=== PATIENT | female | born 1985 | race African-American/Black ===

== ENCOUNTER 2016-09-22 13:37 | Emergency (ER) | payer MEDICARE, OTHER ==
[2016-09-22 13:41] VITALS: BP 138/69; PULSE 79; RESP 20; TEMP 98
--- NOTE | 2016-09-22 14:18 | XR ---
EXAMINATION TYPE: XR ankle complete RT DATE OF EXAM: 09/22/2016 2:12 PM COMPARISON: NONE HISTORY: Rolled ankle pain TECHNIQUE: Three-view right ankle FINDINGS: Prior open reduction internal fixation of ankle fracture is present. There is arthrodesis t o the ankle joint space. An acute fracture is not identified. IMPRESSION: 1. Arthrodesis right ankle. 2. Acute osseous abnormality is identified. Postsurgical changes are evident.
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
--- NOTE | 2016-09-22 14:20 | XR ---
EXAMINATION TYPE: XR foot complete RT DATE OF EXAM: 09/22/2016 2:12 PM COMPARISON: NONE HISTORY: Pain injury walking yesterday TECHNIQUE: Three-view right foot FINDINGS: No acute fractures are evident. Joint spaces appear preserved within the foot. There is art hrodesis of the right ankle. Plantar calcaneal heel spur is present. Follow-up exam can be performed 7-10 days from acute trauma for continued pain. IMPRESSION: 1. Postsurgical changes right ankle. 2. No acute osseous abnormality right foot
== END 2016-09-22 15:08 | disposition home or self-care (01) ==
LOC: EC 13:37
DX: S82.201A Unspecified fracture of shaft of right tibia, initial encounter for closed fracture (principal); F17.200 Nicotine dependence, unspecified, uncomplicated; X50.9XXA Other and unspecified overexertion or strenuous movements or postures, initial encounter; Y93.01 Activity, walking, marching and hiking
CPT/HCPCS: 29515; 99284

== ENCOUNTER 2016-11-20 15:03 | Emergency (ER) | payer MEDICARE, OTHER ==
[2016-11-20 15:18] VITALS: RESP 18; TEMP 98.1
[2016-11-20] MEDS ORDERED: ORPHENADRINE 30 MG/ML 2 ML VIAL IM STA (15:28)
[2016-11-20] MEDS ORDERED: KETOROLAC 60 MG/2 ML VIAL IM STA (15:28)
[2016-11-20 15:49] VITALS: BP 126/79; PULSE 60
[2016-11-20 15:49] LABS: Appearance,Urine Turbid (Clear); Bacteria,Urine Many /hpf; Bilirubin,Urine Negative (Negative); Glucose,Urine (UA) Negative (Negative); Ketones,Urine Negative (Negative); Leukocyte Esterase,Urine Moderate (Negative); Mucus,Urine Rare /hpf; Nitrite,Urine Negative (Negative); PH, Urine 5.5 (5.0-8.0); Particle Count 42637; Protein,Urine Negative (Negative); RBC,Urine 14 /hpf (0-5); Specific Gravity,Urine 1.006 (1.001-1.035); Squamous Epithelial Cell,Urine 30 /hpf (0-4); UA Billing (MACRO vs. MICRO) MICRO; Urobilinogen,Urine <2.0 mg/dL (<2.0); WBC,Urine 11 /hpf (0-5)
--- NOTE | 2016-11-20 15:49 | ED ---
Back Pain HPI - General Chief Complaint: Back Pain/Injury Stated Complaint: Back Pain Time Seen by Provider: 11/20/16 15:17 Source: patient, RN notes reviewed, old records reviewed Limitations: no limitations - History of Present Illness Initial Comments: This is a 31-year-old female presenting to the emergency Department chief complaint of left leg nerve pain reading from her upper and lower back into her leg. She reports it's worse with sitting and bending over. She states she feels somewhat relieved with standing up he denies any recent falls or trauma. She denies any saddle anesthesias. Patient reports that the pain is severe with this certain movements. Patient denies any nausea or vomiting. She denies any dysuria or any other symptoms. - Related Data Home Medications Medication Instructions Recorded Confirmed Ibuprofen [Motrin] 800 mg PO TID PRN 11/20/16 11/20/16 Pregabalin [Lyrica] 200 mg PO HS 11/20/16 11/20/16 QUEtiapine [SEROquel] 50 mg PO HS 11/20/16 11/20/16 Previous Rx's Medication Instructions Recorded Cyclobenzaprine [Flexeril] 10 mg PO TID #20 tab 11/20/16 HYDROcodone/APAP 5-325MG [[employer] 1 tab PO Q6HR PRN #15 tab 11/20/16 5-325] Allergies Allergy/AdvReac Type Severity Reaction Status Date / Time ketorolac [From Toradol] AdvReac Nightmares Verified 11/20/16 16:03 Review of Systems ROS Statement: Those systems with pertinent positive or pertinent negative responses have been documented in the HPI. ROS Other: All systems not noted in ROS Statement are negative. Past Medical History Past Medical History: No Reported History History of Any Multi-Drug Resistant Organisms: MRSA Date of last positivie culture/infection: 2010 MDRO Source:: unk Past Surgical History: Section, Cholecystectomy Additional Past Surgical History / Comment(s): ankle surgery, nasal surgery, right leg surgeryx 3 Past Psychological History: No Psychological Hx Reported Smoking Status: Current every day smoker Past Alcohol Use History: None Reported Past Drug Use History: Marijuana General Exam - General Exam Comments Initial Comments: This is a 31-year-old female. Patient does not appear in any acute distress. Limitations: no limitations General appearance: alert, in no apparent distress Head exam: Present: atraumatic, normocephalic, normal inspection Eye exam: Present: normal appearance, PERRL, EOMI. Absent: scleral icterus, conjunctival injection, periorbital swelling ENT exam: Present: normal exam, mucous membranes moist Neck exam: Present: normal inspection. Absent: tenderness, meningismus, lymphadenopathy Respiratory exam: Present: normal lung sounds bilaterally. Absent: respiratory distress, wheezes, rales, rhonchi, stridor Cardiovascular Exam: Present: regular rate, normal rhythm, normal heart sounds. Absent: systolic murmur, diastolic murmur, rubs, gallop, clicks GI/Abdominal exam: Present: soft, normal bowel sounds. Absent: distended, tenderness, guarding, rebound, rigid Extremities exam: Present: normal inspection, full ROM, normal capillary refill. Absent: tenderness, pedal edema, joint swelling, calf tenderness Back exam: Present: normal inspection, full ROM, tenderness (Patient has pain over the left lumbar area. ) Neurological exam: Present: alert, oriented X3, CN II-XII intact, normal gait Psychiatric exam: Present: normal affect, normal mood Skin exam: Present: warm, dry, intact, normal color. Absent: rash Course Vital Signs 11/20/16 11/20/16 15:13 15:48 Temperature 98.1 F Pulse Rate 70 60 Respiratory 18 18 Rate Blood Pressure 132/80 126/79 O2 Sat by Pulse 98 96 Oximetry Medical Decision Making - Medical Decision Making This is a 31-year-old female presenting to the emergency Department chief complaint of left leg nerve pain reading from her upper and lower back into her leg. She reports it's worse with sitting and bending over. She states she feels somewhat relieved with standing up he denies any recent falls or trauma. Patient x-ray was reviewed and did show some significant lumbar spinal spasm. Patient does have no fractures noted. Patient has no evidence of spinal listhesis or spondylolysis. Patient was given IM Toradol and Norflex. Patient also will be discharged at this time with muscle relaxers instructed that he ice over her lumbar spine. Patient understands treatment plan will comply. Return parameters were discussed. - Lab Data Lab Results 11/20/16 11/20/16 Range/Units 15:36 15:36 Urine Color Light Yellow Urine Appearance Turbid H (Clear) Urine pH 5.5 (5.0-8.0) Ur Specific Rives 1.006 (1.001-1.035) Urine Protein Negative (Negative) Urine Glucose (UA) Negative (Negative) Urine Ketones Negative (Negative) Urine Blood Negative (Negative) Urine Nitrite Negative (Negative) Urine Bilirubin Negative (Negative) Urine Urobilinogen <2.0 (<2.0) mg/dL Ur Leukocyte Esterase Moderate H (Negative) Urine RBC 14 H (0-5) /hpf Urine WBC 11 H (0-5) /hpf Ur Squamous Epith Cells 30 H (0-4) /hpf Urine Bacteria Many H (None) /hpf Urine Mucus Rare H (None) /hpf Urine Yeast (Budding) Few H (None) /hpf Urine HCG, Qual Not Detected (Not Detectd) Disposition Clinical Impression: Lumbar paraspinal muscle spasm, Injury of sciatic nerve at hip and thigh level , left leg, initial encounter Disposition: HOME SELF-CARE Condition: Good Instructions: Sciatica (ED), Lumbar Radiculopathy (ED) Additional Instructions: Patient advised to put heat and ice over the lower back. Take the medications as prescribed. Return to the emergency department if any alarming signs or symptoms occur. Prescriptions: Cyclobenzaprine [Flexeril] 10 mg PO TID #20 tab HYDROcodone/APAP 5-325MG [[employer] 5-325] 1 tab PO Q6HR PRN #15 tab PRN Reason: Pain Referrals: Rachelle Wray MD [Primary Care Provider] - 1-2 days Time of Disposition: 16:18
--- NOTE | 2016-11-20 16:28 | XR ---
EXAMINATION TYPE: XR lumbar spine 2 or 3V , 3 VIEWS DATE OF EXAM ORDERED: 11/20/2016 HISTORY: Pain. COMPARISON: None. FINDINGS: There has been a previous cholecystectomy. Vertebral body height and alignment are maintained. There is no spondylolysis or spondylolisthesis. T he disc spaces are maintained. The pedicles are intact. IMPRESSION: NORMAL LUMBAR SPINE.
== END 2016-11-20 16:28 | disposition home or self-care (01) ==
LOC: EC 15:03
DX: S74.02XA Injury of sciatic nerve at hip and thigh level, left leg, initial encounter (principal); M62.830 Muscle spasm of back; F17.200 Nicotine dependence, unspecified, uncomplicated; Z86.14 Personal history of Methicillin resistant Staphylococcus aureus infection; Z79.899 Other long term (current) drug therapy; Z88.6 Allergy status to analgesic agent; X50.9XXA Other and unspecified overexertion or strenuous movements or postures, initial encounter
CPT/HCPCS: 81001; 81025; 72100; 99284; 96372 ×2; J2360; J1885

== ENCOUNTER → 2018-05-12 | Outpatient (CLI) | payer OTHER ==
[2018-05-12 10:18] LABS: HCT 43.5 % (34.0-46.0); HGB 14.4 gm/dL (11.4-16.0); MCHC 33.1 g/dL (31.0-37.0); MCV 96.7 fL (80.0-100.0); Mean Platelet Volume 7.9; Platelet Count 311 k/uL (150-450); RBC 4.49 m/uL (3.80-5.40); RDW 13.6 % (11.5-15.5); WBC 9.9 k/uL (3.8-10.6)
--- NOTE | 2018-05-12 10:21 | CT ---
EXAMINATION TYPE: CT ankle RT wo con DATE OF EXAM: 05/12/2018 COMPARISON: Radiograph 09/22/2016 HISTORY: 33-year-old female Pain TECHNIQUE: Contiguous axial scanning of the right ankle without IV contrast. Coronal and sagittal rec onstructions performed. CT DLP: 311 mGycm Automated exposure control for dose reduction was used. FINDINGS: Redemonstrated is surgical arthrodesis across the tibiotalar joint with antegrade intramedullary nail . 3 distal interlocking screws are present. Large areas of bony bridging are present across the tibio talar joint with some persistent areas of nonbridging such as far anteriorly along the tibiotalar mayra nt and along the medial margin. The orthopedic hardware itself remains intact. Additional sideplate and multiple screw fixation distal fibula. There is a fusion screw at the level of the lateral malleolus extending into the underlying talus with large areas of bony ankylosis at th e anterior tibiofibular joint and across the anterior aspect of the distal fibula and lateral talar d ome. Small corticated density along the inferior aspect of the lateral talar process could represent a par tially fused prior fracture fragment. Subtalar joint remains aligned. There is some marginal spurring along the posterior, middle, and ante rior facets of the subtalar joint. Small delineation to the Achilles tendon. No acute fracture, subluxation, or dislocation seen. Either confluent edema measuring 3.1 cm overlying the medial malleolus versus extensive scar tissue. IMPRESSION: 1. STATUS POST SURGICAL ARTHRODESIS OF THE TIBIOTALAR AND TALOFIBULAR JOINTS. LARGE AREAS OF BONY ANK YLOSIS ARE PRESENT, HAVING PROGRESSED FROM THE PATIENT'S 09/22/2016 RADIOGRAPHS. ONLY SMALL AREAS OF CHRONIC NONUNION REMAIN, SUCH ALONG THE ANTERIORMOST ASPECT OF THE TIBIOTALAR JOINT AND POSTERIOR ASPECT OF THE TALOFIBULAR JOINT. 2. NO PERISCREW LUCENCY TO SUGGEST LOOSENING. NO SCREW OR PERIPROSTHETIC FRACTURE SEEN. 3. MILD DEGENERATIVE SPURRING ALONG THE SUBTALAR JOINT.
[2018-05-12 11:47] LABS: Erythrocyte Sedimentation Rate 11 mm/hr (0-20)
== END | disposition home or self-care (01) ==
LOC: RADCTMAIN 09:11
PROVIDERS: ATTEND Orthopaedic Surgery
DX: M24.671 Ankylosis, right ankle (principal); M77.51 Other enthesopathy of right foot and ankle; T84.84XA Pain due to internal orthopedic prosthetic devices, implants and grafts, initial encounter; M25.571 Pain in right ankle and joints of right foot; Z98.1 Arthrodesis status
CPT/HCPCS: 85027; 85652

== ENCOUNTER 2018-06-04 17:50 | Emergency (ER) | payer MEDICARE, OTHER ==
[2018-06-04 18:18] VITALS: BP 131/82; PULSE 66; RESP 20; TEMP 98.6
[2018-06-04] MEDS ORDERED: HYDROcodone/APAP 5-325MG 1 EACH TAB PO STA (19:08)
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
[2018-06-04 19:56] LABS: Appearance,Urine Clear (Clear); Bacteria,Urine Rare /hpf; Bilirubin,Urine Negative (Negative); Blood,Urine Small (Negative); Color,Urine Yellow; Glucose,Urine (UA) Negative (Negative); Ketones,Urine Negative (Negative); Leukocyte Esterase,Urine Negative (Negative); Mucus,Urine Few /hpf; Nitrite,Urine Negative (Negative); PH, Urine 5.5 (5.0-8.0); Protein,Urine Trace (Negative); RBC,Urine 2 /hpf (0-5); Specific Gravity,Urine 1.025 (1.001-1.035); Squamous Epithelial Cell,Urine 8 /hpf (0-4); Urobilinogen,Urine <2.0 mg/dL (<2.0); WBC,Urine 1 /hpf (0-5)
--- NOTE | 2018-06-04 20:18 | XR ---
EXAMINATION TYPE: XR Hip RT and AP Pelvis DATE OF EXAM: 06/04/2018 COMPARISON: NONE HISTORY: Right hip pain and pelvic pain. No fall or injury. TECHNIQUE: A single AP view of the pelvis is obtained. Two views of the right hip are obtained. FINDINGS: There is no acute fracture/dislocation evident in the pelvis. The hip and sacroiliac join ts appear symmetric and unremarkable. The overlying soft tissue appears unremarkable. Two views of right hip show no acute fracture or dislocation. There is over coverage of the femoral h ead by osseous protuberance. This predisposes the patient to pincer-type femoral acetabular impingeme nt syndrome. This is seen bilaterally, right or left. Transitional-type vertebrae is seen at L5-S1 on the left. Sclerotic focus overlies the femoral neck on a single view only and therefore is not thoug ht to represent an osseous lesion. No focal lytic or sclerotic lesion seen in the proximal right femu r. The overlying soft tissue is unremarkable. IMPRESSION: 1. No acute fracture or dislocation in the pelvis or right hip. 2. Bilateral lower coverage of the femoral heads by protruding acetabuli creating pincer deformities and predisposing this patient to pincer-type femoral acetabular impingement syndrome, right greater t soni left. 3. 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
--- NOTE | 2018-06-04 20:19 | XR ---
EXAMINATION TYPE: XR lumbar spine 2 or 3V DATE OF EXAM: 06/04/2018 CLINICAL HISTORY: Back pain TECHNIQUE: Frontal and lateral images of the lumbar spine are obtained. COMPARISON: 11/12/2016 FINDINGS: There is transitional-type vertebrae at L5 on the left with hemisacralization. . Mild levos coliosis is likely positional in nature and not seen on the prior of 2016. There are 5 lumbar type ve rtebral bodies identified. The lumbar spine shows satisfactory alignment without evidence of acute f racture or dislocation. Vertebral body heights and disk space heights are within normal limits. Chol ecystectomy clips are noted. IMPRESSION: No acute fracture or malalignment is seen in the lumbar spine.
== END 2018-06-04 21:24 | disposition home or self-care (01) ==
LOC: EC 17:50
DX: M25.851 Other specified joint disorders, right hip (principal); M54.30 Sciatica, unspecified side; F17.200 Nicotine dependence, unspecified, uncomplicated; Z86.14 Personal history of Methicillin resistant Staphylococcus aureus infection; Z88.6 Allergy status to analgesic agent; Z90.49 Acquired absence of other specified parts of digestive tract
CPT/HCPCS: 72100; 73502; 81001; 81025; 87086; 99284

== ENCOUNTER → 2021-04-17 | Outpatient (CLI) | payer MEDICARE ==
--- NOTE | 2021-04-17 12:37 | US ---
EXAMINATION TYPE: US venous doppler duplex LE BI DATE OF EXAM: 04/17/2021 9:30 AM COMPARISON: NONE CLINICAL HISTORY: 36-year-old female M79.662,M97.661 PAIN IN LT AND RT LEGS. SIDE PERFORMED: Bilateral TECHNIQUE: The lower extremity deep venous system is examined utilizing real time linear array sonog daly with graded compression, doppler sonography and color-flow sonography. FINDINGS: VESSELS IMAGED: Common Femoral Vein Deep Femoral Vein Greater Saphenous Vein * Femoral Vein Popliteal Vein Small Saphenous Vein * Proximal Calf Veins (* superficial vessels) Electricity Trading Analyst notes: Patient of large body habitus. Right Leg: Negative for DVT Left Leg: Negative for DVT IMPRESSION: No evidence for DVT within the bilateral lower extremities imaged from the groin to the upper calves.
--- NOTE | 2021-04-17 12:41 | US ---
EXAMINATION TYPE: US thyroid st tissue head/neck DATE OF EXAM: 04/17/2021 COMPARISON: NONE CLINICAL HISTORY: 36-year-old female R22.0 SWELLING/MASS. TECHNIQUE: Multiple sonographic images of the thyroid gland are obtained. FINDINGS: GLAND SIZE: Right Lobe: 4.8 x 1.6 x 1.7 cm Overall Parenchyma: homogenous Left Lobe: 5.4 x 1.2 x 1.5 cm Overall Parenchyma: homogeneous Isthmus Thickness: 0.3 cm NODULES RIGHT: # of nodules measured on right: 0 LEFT: # of nodules measured on left: 0 Bilateral neck scanned, no evidence of lymphadenopathy. IMPRESSION: Borderline thyromegaly. Normal homogeneous appearance. No discrete nodule seen.
== END | disposition home or self-care (01) ==
LOC: RADUSWWP 08:48
PROVIDERS: ATTEND Internal Medicine
DX: M79.662 Pain in left lower leg (principal); M79.661 Pain in right lower leg; E01.0 Iodine-deficiency related diffuse (endemic) goiter
CPT/HCPCS: 76536; 93970

== ENCOUNTER → 2021-07-09 | Outpatient (CLI) | payer MEDICARE, OTHER ==
--- NOTE | 2021-07-09 09:37 | CT ---
EXAMINATION TYPE: CT abdomen pelvis wo con DATE OF EXAM: 07/09/2021 COMPARISON: None HISTORY: Epigastric pain CT DLP: 958 mGycm Automated exposure control for dose reduction was used. TECHNIQUE: Helical acquisition of images was performed from the lung bases through the pelvis. FINDINGS: LUNG BASES: No significant abnormality is appreciated. LIVER/GB: Postcholecystectomy changes are seen. PANCREAS: No significant abnormality is seen. SPLEEN: No significant abnormality is seen. ADRENALS: No significant abnormality is seen. KIDNEYS: No significant abnormality is seen. ADENOPATHY: None visualized. OSSEOUS STRUCTURES: Severe degenerative disc disease L5-S1 with central disc protrusion. BOWEL: Appendix measures at the upper limits of normal at 6 mm. No inflammatory changes. Correlate c linically. Small hiatal hernia noted. OTHER: The uterus is somewhat prominent in size with soft tissue attenuations adjacent likely related to normal ovaries. Correlate with pelvic ultrasound as clinically warranted. IMPRESSION: 1. The appendix is at the upper limits of normal in size measuring 6 mm but appears to be air-filled and there is no surrounding inflammatory changes and could be transient. Correlate clinically to excl ude a elevated white blood cell count or right lower quadrant pain. 2. No evidence of renal stone. 3. Postcholecystectomy 4. Small hiatal hernia.
== END | disposition home or self-care (01) ==
LOC: RADCTMAIN 09:04
PROVIDERS: ATTEND Internal Medicine
DX: K44.9 Diaphragmatic hernia without obstruction or gangrene (principal); Z90.49 Acquired absence of other specified parts of digestive tract
CPT/HCPCS: 74176

== ENCOUNTER 2021-10-07 19:11 | Emergency (ER) | payer MEDICARE, OTHER ==
[2021-10-07] MEDS ORDERED: ONDANSETRON 4 MG/2 ML VIAL IVP STA (21:51)
[2021-10-07] MEDS ORDERED: KETOROLAC 15 MG/ML 1 ML VIAL IVP STA (21:51)
[2021-10-07] MEDS ORDERED: SODIUM CHLORIDE 0.9% 1,000 ML IV STA (21:51)
--- NOTE | 2021-10-07 21:57 | ED ---
General Adult HPI - General Chief complaint: Abdominal Pain Stated complaint: abd pain Time Seen by Provider: 10/07/21 21:37 Source: patient, RN notes reviewed Mode of arrival: ambulatory Limitations: no limitations - History of Present Illness Initial comments: 36-year-old female presents to the emergency department for evaluation of epigastric and right-sided abdominal pain that radiates to the right flank, onset yesterday. Patient states her pain is worse with movement and repositioning. Also had an episode of diaphoresis and vomiting prior to arrival. She states she has nausea medicine at home but did not take any. Reports history of cholecystectomy. States "food does not agree with me." Denies fever, chills, headache, dizziness, chest pain, shortness of breath, constipation, diarrhea, dysuria, or hematuria. - Related Data Home Medications Medication Instructions Recorded Confirmed Ibuprofen [Motrin Ib] 400 mg PO Q8H PRN 10/07/21 10/07/21 Omeprazole [PriLOSEC] 40 mg PO DAILY 10/07/21 10/07/21 buPROPion XL [Wellbutrin XL] 300 mg PO DAILY 10/07/21 10/07/21 Allergies Allergy/AdvReac Type Severity Reaction Status Date / Time tramadol Allergy Abdominal Verified 10/07/21 22:57 Pain Review of Systems ROS Statement: Those systems with pertinent positive or pertinent negative responses have been documented in the HPI. ROS Other: All systems not noted in ROS Statement are negative. Past Medical History Past Medical History: No Reported History History of Any Multi-Drug Resistant Organisms: MRSA Date of last positivie culture/infection: 2010 MDRO Source:: unk Past Surgical History: Section, Cholecystectomy Additional Past Surgical History / Comment(s): ankle surgery, nasal surgery, right leg surgeryx 3 Past Psychological History: No Psychological Hx Reported Smoking Status: Never smoker Past Alcohol Use History: None Reported Past Drug Use History: Marijuana General Exam Limitations: no limitations General appearance: alert, in distress (Well-developed, well-nourished female in mild distress due to pain. Initial temperature 98.3, pulse 110, respirations 20, blood pressure 130/98, pulse ox 99% on room air.) Eye exam: Present: normal appearance. Absent: scleral icterus, conjunctival injection ENT exam: Present: normal exam, normal oropharynx, mucous membranes moist Neck exam: Present: normal inspection, full ROM. Absent: lymphadenopathy Respiratory exam: Present: normal lung sounds bilaterally. Absent: respiratory distress, wheezes, rales, rhonchi, stridor, chest wall tenderness Cardiovascular Exam: Present: normal rhythm, tachycardia, normal heart sounds. Absent: systolic murmur, diastolic murmur, rubs, gallop, clicks GI/Abdominal exam: Present: soft, tenderness (Tenderness upon palpation of the mid abdomen, epigastrium, and right mid abdomen.), guarding (Guarding mid abdomen), normal bowel sounds. Absent: distended, rebound, rigid Back exam: Absent: CVA tenderness (R), CVA tenderness (L) Neurological exam: Present: alert, oriented X3, normal gait Psychiatric exam: Present: flat affect Skin exam: Present: warm, dry, intact, normal color. Absent: rash Course Vital Signs 10/07/21 10/08/21 19:25 00:44 Temperature 98.3 F 99.8 F H Pulse Rate 110 H 72 Respiratory 20 16 Rate Blood Pressure 138/98 152/98 O2 Sat by Pulse 99 99 Oximetry - Reevaluation(s) Reevaluation #1: 10/08/21 00:25 Upon reassessment, patient is resting more comfortably at this time. States her nausea is resolved and her pain is minimal. Discussed findings from blood work, urine, and imaging. We talked about CT, however given the patient does not have an elevated white blood cell count and is not tender upon palpation of the right lower quadrant, patient was given the option and chose to decline further testing at this time. She will be discharged home with strict return parameters. Medical Decision Making - Medical Decision Making This is a 36-year-old female with a past medical history of cholecystectomy who presents to the emergency department for evaluation of abdominal pain and nausea. Upon exam, patient is guarding the abdomen, but has minimal tenderness upon palpation. She is not experiencing any vomiting, but does complain of nausea. Patient was given IV fluids, pain medication, and antiemetic with significant improvement. Laboratory studies were obtained and were unremarkable. EKG shows normal sinus rhythm. X-ray is negative for any acute process. Findings were discussed with patient. We did discuss option of CT but patient elected to decline at at this time. She will be discharged home to follow-up with her PCP. Patient is prescribed Zofran for nausea. Strict return parameters were discussed in detail. Patient verbalizes understanding and agrees with this plan. Attending: Pepe. - Lab Data Result diagrams: 10/07/21 23:14 10/07/21 23:14 Lab Results 10/07/21 10/07/21 10/07/21 Range/Units 23:10 23:14 23:14 WBC 9.6 (3.8-10.6) k/uL RBC 4.41 (3.80-5.40) m/uL Hgb 13.2 (11.4-16.0) gm/dL Hct 41.7 (34.0-46.0) % MCV 94.7 (80.0-100.0) fL MCH 29.9 (25.0-35.0) pg MCHC 31.6 (31.0-37.0) g/dL RDW 12.9 (11.5-15.5) % Plt Count 332 (150-450) k/uL MPV 7.3 Neutrophils % 72 % Lymphocytes % 21 % Monocytes % 4 % Eosinophils % 1 % Basophils % 1 % Neutrophils # 6.9 (1.3-7.7) k/uL Lymphocytes # 2.0 (1.0-4.8) k/uL Monocytes # 0.4 (0-1.0) k/uL Eosinophils # 0.1 (0-0.7) k/uL Basophils # 0.1 (0-0.2) k/uL Sodium 137 (137-145) mmol/L Potassium 4.6 (3.5-5.1) mmol/L Chloride 107 (98-107) mmol/L Carbon Dioxide 23 (22-30) mmol/L Anion Gap 7 mmol/L BUN 16 (7-17) mg/dL Creatinine 1.11 H (0.52-1.04) mg/dL Est GFR (CKD-EPI)AfAm 74 (>60 ml/min/1.73 sqM) Est GFR (CKD-EPI)NonAf 64 (>60 ml/min/1.73 sqM) Glucose 95 (74-99) mg/dL Plasma Lactic Acid Amarjit (0.7-2.0) mmol/L Calcium 9.0 (8.4-10.2) mg/dL Total Bilirubin 0.5 (0.2-1.3) mg/dL AST 24 (14-36) U/L ALT 16 (4-34) U/L Alkaline Phosphatase 76 (38-126) U/L Total Protein 7.9 (6.3-8.2) g/dL Albumin 4.6 (3.5-5.0) g/dL Lipase 30 (23-300) U/L Urine Color Yellow Urine Appearance Cloudy H (Clear) Urine pH 6.0 (5.0-8.0) Ur Specific Jennings 1.024 (1.001-1.035) Urine Protein Trace H (Negative) Urine Glucose (UA) Negative (Negative) Urine Ketones Negative (Negative) Urine Blood Negative (Negative) Urine Nitrite Negative (Negative) Urine Bilirubin Negative (Negative) Urine Urobilinogen <2.0 (<2.0) mg/dL Ur Leukocyte Esterase Moderate H (Negative) Urine RBC 2 (0-5) /hpf Urine WBC 9 H (0-5) /hpf Ur Squamous Epith Cells 14 H (0-4) /hpf Urine Bacteria Rare H (None) /hpf Urine Mucus Few H (None) /hpf 10/07/21 Range/Units 23:14 WBC (3.8-10.6) k/uL RBC (3.80-5.40) m/uL Hgb (11.4-16.0) gm/dL Hct (34.0-46.0) % MCV (80.0-100.0) fL MCH (25.0-35.0) pg MCHC (31.0-37.0) g/dL RDW (11.5-15.5) % Plt Count (150-450) k/uL MPV Neutrophils % % Lymphocytes % % Monocytes % % Eosinophils % % Basophils % % Neutrophils # (1.3-7.7) k/uL Lymphocytes # (1.0-4.8) k/uL Monocytes # (0-1.0) k/uL Eosinophils # (0-0.7) k/uL Basophils # (0-0.2) k/uL Sodium (137-145) mmol/L Potassium (3.5-5.1) mmol/L Chloride (98-107) mmol/L Carbon Dioxide (22-30) mmol/L Anion Gap mmol/L BUN (7-17) mg/dL Creatinine (0.52-1.04) mg/dL Est GFR (CKD-EPI)AfAm (>60 ml/min/1.73 sqM) Est GFR (CKD-EPI)NonAf (>60 ml/min/1.73 sqM) Glucose (74-99) mg/dL Plasma Lactic Acid Amarjit 0.8 (0.7-2.0) mmol/L Calcium (8.4-10.2) mg/dL Total Bilirubin (0.2-1.3) mg/dL AST (14-36) U/L ALT (4-34) U/L Alkaline Phosphatase (38-126) U/L Total Protein (6.3-8.2) g/dL Albumin (3.5-5.0) g/dL Lipase (23-300) U/L Urine Color Urine Appearance (Clear) Urine pH (5.0-8.0) Ur Specific Jennings (1.001-1.035) Urine Protein (Negative) Urine Glucose (UA) (Negative) Urine Ketones (Negative) Urine Blood (Negative) Urine Nitrite (Negative) Urine Bilirubin (Negative) Urine Urobilinogen (<2.0) mg/dL Ur Leukocyte Esterase (Negative) Urine RBC (0-5) /hpf Urine WBC (0-5) /hpf Ur Squamous Epith Cells (0-4) /hpf Urine Bacteria (None) /hpf Urine Mucus (None) /hpf - EKG Data EKG shows normal: sinus rhythm Rate: normal EKG Comments: EKG was obtained at 2303 showing sinus rhythm. Ventricular rate 70, AL interval 202, QRS duration 90, QT/QTC 392/412. Interpretation normal ECG. - Radiology Data Radiology results: report reviewed, image reviewed KUB x-ray was obtained. Report was reviewed in its entirety. Impression per Dr. Hernandez is nonacute abdomen. Disposition Clinical Impression: Abdominal pain, Nausea Disposition: HOME SELF-CARE Condition: Stable Instructions (If sedation given, give patient instructions): Acute Nausea and Vomiting (ED), Abdominal Pain (ED) Additional Instructions: Take Zofran that you have at home as needed for nausea. Eat foods that you were able to tolerate with no worsening discomfort or nausea. Increase fluids. Avoid caffeine. Follow-up with your PCP for a recheck in 48 hours if needed. Return to the emergency department with any new, worsening, or concerning symptoms. Is patient prescribed a controlled substance at d/c from ED?: No Referrals: Rachelle Wray MD [Primary Care Provider] - 1-2 days Time of Disposition: 00:45
[2021-10-07 23:23] LABS: Basophils # (A) 0.1 k/uL (0-0.2); Basophils % (A) 1 %; Eosinophils # (A) 0.1 k/uL (0-0.7); Eosinophils % (A) 1 %; HCT 41.7 % (34.0-46.0); HGB 13.2 gm/dL (11.4-16.0); Lymphocytes % (A) 21 %; MCH 29.9 pg (25.0-35.0); MCHC 31.6 g/dL (31.0-37.0); MCV 94.7 fL (80.0-100.0); Mean Platelet Volume 7.3; Monocytes # (A) 0.4 k/uL (0-1.0); Monocytes % (A) 4 %; Neutrophils # (A) 6.9 k/uL (1.3-7.7); Neutrophils % (A) 72 %; Platelet Count 332 k/uL (150-450); RBC 4.41 m/uL (3.80-5.40); RDW 12.9 % (11.5-15.5); WBC 9.6 k/uL (3.8-10.6)
[2021-10-07 23:29] LABS: Appearance,Urine Cloudy (Clear); Bacteria,Urine Rare /hpf; Bilirubin,Urine Negative (Negative); Blood,Urine Negative (Negative); Color,Urine Yellow; Glucose,Urine (UA) Negative (Negative); Ketones,Urine Negative (Negative); Leukocyte Esterase,Urine Moderate (Negative); Mucus,Urine Few /hpf; Nitrite,Urine Negative (Negative); Protein,Urine Trace (Negative); RBC,Urine 2 /hpf (0-5); Specific Gravity,Urine 1.024 (1.001-1.035); Squamous Epithelial Cell,Urine 14 /hpf (0-4); Urobilinogen,Urine <2.0 mg/dL (<2.0); WBC,Urine 9 /hpf (0-5)
[2021-10-07 23:34] LABS: Albumin 4.6 g/dL (3.5-5.0); Potassium 4.6 mmol/L (3.5-5.1); Total Bilirubin 0.5 mg/dL (0.2-1.3); Total Protein 7.9 g/dL (6.3-8.2)
--- NOTE | 2021-10-08 00:03 | XR ---
EXAMINATION TYPE: XR KUB DATE OF EXAM: 10/07/2021 COMPARISON: NONE HISTORY: Pain TECHNIQUE: 2 views upright FINDINGS: There is no sign of intestinal obstruction or pneumoperitoneum. Fecal pattern is normal. No evidence of a mass. There are no pathologic calcifications over the kidneys. There are clips from ch olecystectomy. Lung bases are clear. IMPRESSION: Nonacute abdomen.
[2021-10-08 00:44] VITALS: BP 152/98; PULSE 72; RESP 16; TEMP 99.8
== END 2021-10-08 01:10 | disposition home or self-care (01) ==
LOC: EC 19:11
DX: R10.13 Epigastric pain (principal); R11.2 Nausea with vomiting, unspecified; Z88.5 Allergy status to narcotic agent
CPT/HCPCS: 99284; 96374; 96361; 36415; 93005; 80053; 83605; 83690; 85025; 81001; 74018; J2405

== ENCOUNTER → 2022-03-03 | Outpatient (CLI) | payer MEDICARE ==
--- NOTE | 2022-03-03 16:08 | MR ---
EXAMINATION TYPE: MR lumbar spine wo con DATE OF EXAM: 03/03/2022 COMPARISON: CT abdomen and pelvis 07/09/2021, lumbar spine radiograph 06/04/2018. HISTORY: Sciatic nerve pain, lumbago TECHNIQUE: Multiplanar, multisequence images of the lumbar spine were acquired without IV contrast. FINDINGS: Mild retrolisthesis of L5 on S1 without evidence of pars defects. No paraspinal masses are identified . Conus medullaris has a normal appearance. Disc desiccation is present at L4-L5 and L5-S1. Type II Modic changes involving the inferior endplate of L5 and superior plate of S1. Diffuse low T1 signal t hroughout the visualized vertebral bodies. L1-L2: No herniation, protrusion or disc bulging. No canal stenosis is present. Foramina are patent bilaterally. L2-L3: No herniation, protrusion or disc bulging. No canal stenosis is present. Foramina are patent bilaterally. L3-L4: No herniation, protrusion or disc bulging. No canal stenosis is present. Foramina are patent bilaterally. L4-L5: Left central disc protrusion with approximately 1.3 cm of caudal extrusion. There is mild effa cement of the anterior thecal sac with abutment of the exiting left L4 nerve root. Mild bilateral vita ral foraminal stenosis. L5-S1: Mild retrolisthesis of L5 on S1. Broad-based disc bulge with facet arthropathy. No central can al stenosis. Mild bilateral neural foraminal stenosis. IMPRESSION: 1. L4-L5 disc herniation with caudal extrusion. This results in abutment of the exiting left L4 nerv e root and mild central canal stenosis. 2. L5-S1 degenerative disc disease with mild retrolisthesis of L5 on S1. 3. Diffuse red marrow conversion can be seen in the setting of tobacco abuse, anemia, or myeloprolif erative disorder.
== END | disposition home or self-care (01) ==
LOC: RADMRIMAIN 14:37
PROVIDERS: ATTEND Internal Medicine
DX: M51.37 Other intervertebral disc degeneration, lumbosacral region (principal); M51.26 Other intervertebral disc displacement, lumbar region; M48.061 Spinal stenosis, lumbar region without neurogenic claudication; M43.17 Spondylolisthesis, lumbosacral region; M47.817 Spondylosis without myelopathy or radiculopathy, lumbosacral region; M99.74 Connective tissue and disc stenosis of intervertebral foramina of sacral region
CPT/HCPCS: 72148

== ENCOUNTER → 2022-04-29 | Outpatient (CLI) | payer MEDICARE ==
[2022-04-29 14:31] VITALS: BP 126/86; PULSE 71; RESP 18; TEMP 98.4
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
== END ==
LOC: PNWHC3 13:50
PROVIDERS: ATTEND Specialist
DX: M47.816 Spondylosis without myelopathy or radiculopathy, lumbar region (principal); F17.200 Nicotine dependence, unspecified, uncomplicated; Z88.5 Allergy status to narcotic agent
CPT/HCPCS: 99211

== ENCOUNTER → 2022-07-09 | Outpatient (CLI) | payer MEDICARE ==
[2022-07-09 12:18] VITALS: BP 143/88; PULSE 65; RESP 18; TEMP 98.7
--- NOTE | 2022-07-09 15:51 | P.PAINPG ---
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 Pain level is provoked at 10 /10 in intensity, constant, localized in the L lower lumbar spine, pinching in character w shooting towards the L buttock and LLE. Pain is provoked by sitting. Pain is alleviated with heat, medications, use of a cane for ambulatory assistance, THC products, injections, home stretching regimen, repositioning and rest. Interventional pain procedures completed include TITUS L4-L5 x1 Patient is currently on Ibu, Zanaflex Patient denies any side effects of the medication(s), denies excessive drowsiness or sleepiness, denies suicidal ideation and reports that the current pain medication is helping to control the pain and improve activities of daily living. Patient denies any motor or sensory deficits. Patient denies any fever or night sweats, denies any change in the bowel movements or urination. Physical Examination: -Constitutional: Cooperative. Not in acute distress . - Neurologic: Cranial nerve II to XII intact. No focal neurological deficits. - Psychatric: Alert & oriented x 3. Matching mood & appropriate affect. Judgment and insight intact. - Musculoskeletal: Cervical spine: Muscle bulk/ tone/ strength in the bilateral upper extremities normal Vertebral body tenderness to palpation over Spurling test positive Distraction test positive Facet loading test positive TTP Thoracic spine Muscle bulk / tone/ strength in the bilateral paraspinal muscles normal Vertebral body tender to palpation over Facet loading test positive TTP Lumbar spine: Motor bulk/ tone/ strength lower extremities , thigh and legs : 5/5 Deep tendon reflexes : Normal Knee Jerk. Normal Ankle Jerk . Vertebral body tenderness to palpation over L4 Lumbar Facet Loading Test positive Straight Leg Raise: positive at 30 degrees right side/ left side Gaenslen's Test positive Sacral spine : Severe tenderness over the Sacroiliac joint: right side / left side Range of motion: Flexion of the lumbar spine <60 degrees Range of motion: Extension of the lumbar spine <20 degrees Gaenslen's Test positive right side / left side Talisha test: positive right side / left side Thigh Thrust Test positive right side / left side Sacral Thrust Test positive right side / left side Assessment and plan: Chronic LBP secondary to lumbar DDD, spondylosis with facet arthropathy without myelopathy Recommendation of TITUS L4-L5 #2. May need a series of injections for optimal pain relief. Risks, benefits of procedure discussed and pt verbalized understanding. Admits to anticoagulant use or medical history of diabetes. Prednisone dose pack #21 NR Use side effects and adverse reactions discussed and pt verbalized understanding. Protocol for discontinuation/ continuation of medications nikia procedure discussed. All questions answered. I have spent less than 30 minutes on patient care today. Dr Wong was available by phone for the evaluation of this patient. The time was used to review the medical records including relevant urine studies and Prescription history (MAPs), review of the available imaging, evaluation and examination of the patient, coordination of care with the medical staff and if applicable referring physicians, as well as creation of the medical record PQRS Narrative: Smoking Status Current every day smoker Hx Alcohol Use () No Home Medications: Ambulatory Orders Ibuprofen [Motrin Ib] 400 mg PO Q8H PRN 10/07/21 Controlled Substance Measures - Controlled Substance Measures Is patient prescribed a controlled substance at discharge?: No
== END ==
LOC: PNWHC3 10:01
PROVIDERS: ATTEND Anesthesiology
DX: M51.36 Other intervertebral disc degeneration, lumbar region (principal); M47.816 Spondylosis without myelopathy or radiculopathy, lumbar region; G89.29 Other chronic pain; F17.200 Nicotine dependence, unspecified, uncomplicated; Z88.5 Allergy status to narcotic agent
CPT/HCPCS: 99211

== ENCOUNTER 2022-07-21 07:06 | Day surgery (SDC) | payer MEDICARE ==
[2022-07-21 07:45] VITALS: TEMP 97
[2022-07-21] MEDS ORDERED: LACTATED RINGERS 1,000 ML IV ONE (07:46)
[2022-07-21 07:47] LABS: Glucose,Whole Blood 92 mg/dL (70-110)
[2022-07-21] MEDS ORDERED: methylPREDNISolone ACETATE 80 MG/ML 1 ML VIAL ONE (07:53)
[2022-07-21] MEDS ORDERED: fentaNYL (PF) 50 MCG/ML 2 ML AMP ONE (07:53)
[2022-07-21] MEDS ORDERED: MIDAZOLAM 2 MG/2 ML VIAL ONE (07:53)
[2022-07-21] MEDS ORDERED: IOPAMIDOL M200 10 ML VIAL ONE (07:53)
--- NOTE | 2022-07-21 08:08 | P.PCN ---
Date of Procedure: 07/21/22 Procedure(s) Performed: PREOPERATIVE DIAGNOSIS: 1- Lumbar herniated Disc Diseases 2-Lumbar spondylosis with Facet arthropathy without myelopathy. 3-lumbar foraminal stenosis. 4-lumbar radiculopathy POSTOPERATIVE DIAGNOSIS: Same as preop diagnosis. PROCEDURE 1. Lumbar epidural steroid injection under fluoroscopic guidance at the L4-5 level. (Fluoroscopy imaging was available in radiology department) 2. Lumbar epidurogram. ANESTHESIA: moderate sedation with intravenous Versed 2 mg ,and fentanyle 100 Mcg Sedation start time : 0800 Sedation end time : 804 EBL: Minimal PROCEDURE INDICATION: The patient with low back pain and radiculitis symptoms unresponsive to conservative treatment. Fluoroscopy was used to optimize visualization of the needle placement and to maximize safety. PROCEDURE DESCRIPTION / TECHNIQUE: The patient was seen and identified in the preoperative area. Risks, benefits, complications including but not limited to infections ,bleeding ,allergic reaction to the medications ,nerve damage and not complete pain releife , and alternatives were discussed with the patient. The patient agreed to proceed with the procedure and signed the consent. IV was started, and vital signs were stable. Patient was taken to the OR and time out was completed. The patient was placed in the prone position on procedure table and a pillow was placed under the abdomen to reduce lumbar lordosis. The lumbosacral area was prepped and draped in the usual sterile fashion.ere closely monitored during the procedure. Conscious sedation was used during the procedure to decrease patients anxiety. Vital signs was monitered during the entire procedure. Using anterior-posterior fluoroscopy, the L4-5 ( left paramedial ) interlaminar space was identified and the skin over this site was marked and then infiltrated with 1% lidocaine subcutaneously. Subsequently, a 20-gauge Tuohy epidural needle was inserted and advanced toward the epidural space using the ``Loss of resistance technique and guided by AP and lateral fluoroscopy. The correct needle position in the epidural space was verified with the injection of 2 mL of the water soluble contrast dye Isovue 200 contrast and observing an excellent epidurogram with the epidural spread of the dye, after negative aspiration for blood and CSF and in the absence of paresthesias. Again after negative aspiration, a 6 ml mixture containing 80 mg of Depo-medrol ( Preservetive Free ), and 2 ml of preservative free Normal Saline, and 2 ml of preservative free lidocaine 1% solution was injected and a washout of epidurogram was seen. Needle was withdrawn intact, skin was cleansed, and bandages were applied. COMPLICATIONS: None DISPOSITION / PLANS: The patient was placed in a supine position and transferred to the recovery area in a stable condition for observation. There was no evidence of lower extremity motor or sensory deficit after the procedure. Patient was discharged from the recovery room after meeting discharge criteria. Home discharge instructions were given to the patient by the staff. The patient was reexamined prior to discharge. The patient will schedule a follow up in the clinic in 2-4 weeks.
[2022-07-21] MEDS ORDERED: IV FLUID CONTINUATION 1,000 ML IV ONE (08:15)
--- NOTE | 2022-07-21 08:20 | FL ---
EXAMINATION TYPE: FL guided pain mgmt statistic DATE OF EXAM: 07/21/2022 CLINICAL HISTORY: Low back pain. TECHNIQUE: Fluoroscopy. COMPARISON: None. FINDINGS: Fluoroscopic guidance was provided during pain relief procedure performed by anesthesia Dr . A total of 2 seconds of fluoroscopic time was utilized during the procedure and 1 spot images are acquired. Single image acquired shows needle localization at L4-L5 disc space level with contrast in jection. IMPRESSION: As Above. TOTAL DAP= 0.08421 mGy x m2
[2022-07-21 08:33] VITALS: RESP 16
[2022-07-21] MEDS ORDERED: LIDOCAINE 1% (10MG/ML) FOR IV START INTRADERMA PRN (08:54)
[2022-07-21 08:57] VITALS: BP 121/70; PULSE 52
[2022-07-21] MEDS ORDERED: LACTATED RINGERS 1,000 ML IV SCH (09:00)
== END 2022-07-21 09:10 | disposition home or self-care (01) ==
LOC: ORPAIN 07:06
PROVIDERS: ATTEND Anesthesiology
DX: M51.16 Intervertebral disc disorders with radiculopathy, lumbar region (principal); M47.26 Other spondylosis with radiculopathy, lumbar region; M48.061 Spinal stenosis, lumbar region without neurogenic claudication; Z88.6 Allergy status to analgesic agent
CPT/HCPCS: 81025; 62323; J2250; J1040; J3010; Q9966

== ENCOUNTER → 2022-08-26 | Outpatient (CLI) | payer MEDICARE ==
[2022-08-26 08:43] VITALS: BP 117/80; PULSE 65; RESP 18
--- NOTE | 2022-08-26 14:32 | P.PAINPG ---
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 Pt states she experienced 20 % pain relief x 4 wks s/p procedure. Pain level is provoked at 10 /10 in intensity, constant, localized in the lumbar spine, sharp in character w shooting towards the L buttock. Pain is provoked by sitting for periods of 30 min or more. Pain is alleviated with medications, THC products, heat, walking, repositioning and rest. Interventional pain procedures completed include TITUS L4-L5 Patient is currently on Lyrica, Ibu Patient denies any side effects of the medication(s), denies excessive drowsiness or sleepiness, denies suicidal ideation and reports that the current pain medication is helping to control the pain and improve activities of daily living. Patient denies any motor or sensory deficits. Patient denies any fever or night sweats, denies any change in the bowel movements or urination. Physical Examination: -Constitutional: Cooperative. Not in acute distress . - Neurologic: Cranial nerve II to XII intact. No focal neurological deficits. - Psychatric: Alert & oriented x 3. Matching mood & appropriate affect. Judgment and insight intact. - Musculoskeletal: Cervical spine: Muscle bulk/ tone/ strength in the bilateral upper extremities normal Vertebral body tenderness to palpation over Spurling test positive Distraction test positive Facet loading test positive TTP Thoracic spine Muscle bulk / tone/ strength in the bilateral paraspinal muscles normal Vertebral body tender to palpation over Facet loading test positive TTP Lumbar spine: Motor bulk/ tone/ strength lower extremities , thigh and legs : 5/5 Deep tendon reflexes : Normal Knee Jerk. Normal Ankle Jerk . Vertebral body tenderness to palpation over Lumbar Facet Loading Test positive Straight Leg Raise: positive at 30 degrees right side/ left side Gaenslen's Test positive Sacral spine : Severe tenderness over the Sacroiliac joint: right side / left side Range of motion: Flexion of the lumbar spine <60 degrees Range of motion: Extension of the lumbar spine <20 degrees Gaenslen's Test positive right side / left side Talisha test: positive right side / left side Thigh Thrust Test positive right side / left side Sacral Thrust Test positive right side / left side Assessment and plan: Chronic LBP secondary to lumbar DDD, spondylosis with facet arthropathy without myelopathy Recommendation of L SI injection. May need a series for optimal pain relief. Risks, benefits of procedure discussed and pt verbalized understanding. Admits to anticoagulant use or medical history of diabetes. Protocol for discontinuation/ continuation of medications nikia procedure discussed. All questions answered. I have spent less than 30 minutes on patient care today. Dr Wong was available by phone for the evaluation of this patient. The time was used to review the medical records including relevant urine studies and Prescription history (MAPs), review of the available imaging, evaluation and examination of the patient, coordination of care with the medical staff and if applicable referring physicians, as well as creation of the medical record PQRS Narrative: Smoking Status Current every day smoker Hx Alcohol Use (MH) No Home Medications: Ambulatory Orders Pregabalin 1 tab PO BID 07/21/22 tiZANidine [Zanaflex] 1 tab PO BID 07/21/22 Controlled Substance Measures - Controlled Substance Measures Is patient prescribed a controlled substance at discharge?: No
== END ==
LOC: PNWHC3 08:12
PROVIDERS: ATTEND Specialist
DX: M51.36 Other intervertebral disc degeneration, lumbar region (principal); M47.816 Spondylosis without myelopathy or radiculopathy, lumbar region; G89.29 Other chronic pain; F17.200 Nicotine dependence, unspecified, uncomplicated; Z88.5 Allergy status to narcotic agent; Z91.040 Latex allergy status
CPT/HCPCS: 99211

== ENCOUNTER 2022-10-06 07:25 | Day surgery (SDC) | payer MEDICARE ==
[2022-09-15 14:49] VITALS: BMI 38.8
[~2022-10-06 07:25] MED LIST: LACTATED RINGERS 1,000 ML IV SCH; LIDOCAINE 1% (10MG/ML) FOR IV START INTRADERMA PRN
[2022-10-06 07:59] VITALS: TEMP 97
[2022-10-06] MEDS ORDERED: ROPIVACAINE 5 MG/ML 20 ML AMPULE ONE (08:36)
[2022-10-06] MEDS ORDERED: methylPREDNISolone ACETATE 40 MG/ML 1 ML VIAL ONE (08:36)
[2022-10-06] MEDS ORDERED: IOPAMIDOL M200 10 ML VIAL ONE (08:36)
--- NOTE | 2022-10-06 08:44 | P.PCN ---
Date of Procedure: 10/06/22 Procedure(s) Performed: Procedure= left sacroiliac joints steroid injection under fluoroscopy guidance (fluoroscopy image stored on file in the radiology Department ) Preoperative diagnosis= 1-sacroiliitis 2-lumbar degenerative disc disease 3- lumbar facet arthropathy Postoperative diagnosis=Same as preop Diagnosis . Complication = none Condition= stable Anesthesia= local anesthesia with ropivacaine 0.5% 2 mL only Indication for the procedure= patient complaining of low back pain , examination was positive for severe tenderness over the sacroiliac joints bilaterally and patient diagnosed with sacroiliitis, for this reason he/ she was good candidate for sacroiliac joint steroid injection. Description of the procedure= procedure risk and benefits discussed with the patient, including but not limited, risk of infection and bleeding, and ALLERGIC reaction to the medication and not complete pain relief and patient agreed with the preceding patient taken to the operating room, placed in prone position or standard monitors applied to the patient then after induction of anesthesia back prepped with chlorhexidine 3 times , Then the left sacroiliac joint steroid injection done under strict sterile technique local infiltration of the skin and subcu interstitial at the location of the left sacroiliac joint then a 22-gauge Quincke Needle advanced slowly under fluoroscopy time placed in the left sacroiliac joint, needle placement confirmed with AP and oblique and lateral view then after appropriate needle placement confirmed, with the AP and oblique and lateral then after negative aspiration Isovue 200 1 mL injected showed arthropathy of the left sacroiliac joint, and after negative aspiration 0.5% Ropivacaine 4 mL and 40 mg of Depo- Medrol injected in the left sacroiliac joint after negative aspiration patient tolerated the procedure well that any complications and she will follow up in clinic 3 weeks
--- NOTE | 2022-10-06 09:07 | FL ---
Intraoperative/procedural fluoroscopic services were provided for left SI joint injection. Total fluo roscopy time is 4 seconds with a total of 1 submitted image to PACS. Total DAP 0.09043 Gycm2. Please see the operative note for further details.
[2022-10-06 09:08] VITALS: BP 131/85; PULSE 61; RESP 15
== END 2022-10-06 09:05 | disposition home or self-care (01) ==
LOC: ORPAIN 07:25
PROVIDERS: ATTEND Specialist
DX: M46.1 Sacroiliitis, not elsewhere classified (principal); M51.36 Other intervertebral disc degeneration, lumbar region; M47.816 Spondylosis without myelopathy or radiculopathy, lumbar region; Z91.040 Latex allergy status; Z88.8 Allergy status to other drugs, medicaments and biological substances
CPT/HCPCS: 81025; J1030; Q9966; J2795; G0260; 27096

== ENCOUNTER 2022-12-25 00:13 | Emergency (ER) | payer MEDICARE ==
[2022-12-25 00:30] VITALS: TEMP 97.9
[2022-12-25] MEDS ORDERED: MAG HYDROX/AL HYDROX/SIMETH 30 ML, HYOSCYAMINE ELIXIR 10 ML, LIDOCAINE 2% GLYDO JELLY 1... PO STA ×3 (00:44)
--- NOTE | 2022-12-25 01:09 | ED ---
General Adult HPI - General Chief complaint: Chest Pain Stated complaint: Chest pain Time Seen by Provider: 12/25/22 00:35 Source: patient Mode of arrival: ambulatory Limitations: no limitations - History of Present Illness Initial comments: Dictation was produced using [employer] dictation software. please excuse any grammatical, word or spelling errors. Chief Complaint: 37-year-old feel presents emergency department with chest pressure History of Present Illness: A 37-year-old female she has chronic gastritis and reflux. Patient states that today her symptoms were significantly worse and she reports it started to feel slightly different. Patient states that her symptoms have been ongoing for several weeks over the last 48 hours symptoms have been much more noticeable. She does report family history of heart attacks. States that pain is nonradiating. No associated diaphoresis or nausea. Denies any history of endoscopy. Reports that her symptoms are worse with ingestion. The ROS documented in this emergency department record has been reviewed and confirmed by me. Those systems with pertinent positive or negative responses have been documented in the HPI. All other systems are other negative and/or noncontributory. - Related Data Previous Rx's Medication Instructions Recorded Omeprazole 40 mg PO DAILY #24 cap 12/25/22 Allergies Allergy/AdvReac Type Severity Reaction Status Date / Time latex Allergy Rash/Hives Verified 12/25/22 00:30 tramadol Allergy Abdominal Verified 12/25/22 00:30 Pain Review of Systems ROS Statement: Those systems with pertinent positive or pertinent negative responses have been documented in the HPI. ROS Other: All systems not noted in ROS Statement are negative. Past Medical History Past Medical History: GERD/Reflux Additional Past Medical History / Comment(s): CHRONIC LOW BACK PAIN History of Any Multi-Drug Resistant Organisms: MRSA Date of last positivie culture/infection: 2010 MDRO Source:: unk Past Surgical History: Section, Cholecystectomy, Orthopedic Surgery Additional Past Surgical History / Comment(s): Pain clinic procedure, R ankle surgery/hardware, nasal surgery, right leg surgery/hardware x3 Past Anesthesia/Blood Transfusion Reactions: No Reported Reaction Additional Past Anesthesia/Blood Transfusion Reaction / Comment(s): Pt has never received blood. Past Psychological History: No Psychological Hx Reported Smoking Status: Former smoker Past Alcohol Use History: None Reported Past Drug Use History: Marijuana - Past Family History Mother Family Medical History: Liver Disease Additional Family Medical History / Comment(s): Father Family Medical History: Hypertension General Exam - General Exam Comments Initial Comments: PHYSICAL EXAM: General Impression: Alert and oriented x3, not in acute distress HEENT: Normocephalic atraumatic, extra-ocular movements intact, pupils equal and reactive to light bilaterally, mucous membranes moist. Cardiovascular: Heart regular rate and rhythm Chest: Able to complete full sentences, no retractions, no tachypnea Abdomen: abdomen soft, non-tender, non-distended, no organomegaly Musculoskeletal: Pulses present and equal in all extremities, no peripheral edema Motor: no focal deficits noted Neurological: CN II-XII grossly intact, no focal motor or sensory deficits noted Skin: Intact with no visualized rashes Psych: Normal affect and mood Limitations: no limitations Course Vital Signs 12/25/22 12/25/22 00:28 01:05 Temperature 97.9 F Pulse Rate 60 52 L Respiratory 18 20 Rate Blood Pressure 148/79 140/91 O2 Sat by Pulse 96 100 Oximetry - Reevaluation(s) Reevaluation #1: 12/25/22 02:27 Patient given GI cocktail with alleviation of symptoms. EKG Findings - EKG Comments: EKG Findings:: My EKG interpretation: Ventricular rate 53, sinus bradycardia,. Interval to 6, QRS 93, QTC 400. No ID prolongation, no QTC prolongation, no ST or T-wave changes noted. Overall, this EKG is unremarkable Medical Decision Making - Medical Decision Making Was pt. sent in by a medical professional or institution (, PA, MEAT SLICER, urgent care, hospital, or jail...) When possible be specific @ -No Did you speak to anyone other than the patient for history (EMS, parent, family, police, friend...)? What history was obtained from this source @ -No Did you review nursing and triage notes (agree or disagree)? Why? @ -I reviewed and agree with nursing and triage notes Were old charts reviewed (outside hosp., previous admission, EMS record, old EKG, old radiological studies, urgent care reports/EKG's, jail records)? Report findings @ -No old charts were reviewed Differential Diagnosis (chest pain, altered mental status, abdominal pain women, abdominal pain men, vaginal bleeding, musculoskeletal, weakness, fever, dyspnea, syncope, headache, dizziness, GI bleed, back pain, seizure, CVA, palpatations, mental health)? @ -Differential Chest Pain: Stable Angina, Unstable Angina, STEMI, NSTEMI Aortic Dissection, Pneumothorax, Musculoskeletal, Esophageal Spasm GERD, Cholecystitis, Pancreatitis, Zoster, this is not meant to be an all-inclusive list. EKG interpreted by me (3pts min.). @ -As above X-rays interpreted by me (1pt min.). @ -No acute processes on chest x-ray CT interpreted by me (1pt min.). @ -None done U/S interpreted by me (1pt. min.). @ -None done What testing was considered but not performed or refused? (CT, X-rays, U/S, labs)? Why? @ -None What meds were considered but not given or refused? Why? @ -None Did you discuss the management of the patient with other professionals (professionals i.e. , PA, MEAT SLICER, lab, RT, psych nurse, social contact worker, citrix architect, teacher, staff submarine warfare officer, telephonic nurse case manager)? Give summary @ -No Was smoking cessation discussed for >3mins.? @ -No Was critical care preformed (if so, how long)? @ -No Were there social determinants of health that impacted care today? How? (Homelessness, low income, unemployed, alcoholism, drug addiction, transportation, low edu. Level, literacy, decrease access to med. care, fpc, rehab)? @ -No Was there de-escalation of care discussed even if they declined (Discuss DNR or withdrawal of care, Hospice)? DNR status @ -No What co-morbidities impacted this encounter? (DM, HTN, Smoking, COPD, CAD, Cancer, CVA, ARF, Chemo, Hep., AIDS, mental health diagnosis, sleep apnea, morbid obesity)? @ -None Was patient admitted / discharged? Hospital course, mention meds given and route, prescriptions, significant lab abnormalities, going to OR and other pertinent info. @ -37-year-old female presents emergency Department with odynophagia. States that she does have chest pain. Vital signs upon arrival are within acceptable limits. EKG is unremarkable. Laboratory evaluation obtained. CBC metabolic panel is unremarkable. Troponin is negative. Patient reports resolution of symptoms with GI cocktail. She is stable upon reevaluation at 2:30 AM. Patient discharged advised follow-up with GI specialist for upper endoscopy. Patient counseled on his to improve her symptoms. She is given prescription for omeprazole on requests Undiagnosed new problem with uncertain prognosis? @ -No Drug Therapy requiring intensive monitoring for toxicity (Heparin, Nitro, Insulin, Cardizem)? @ -No Were any procedures done? @ -No Diagnosis/symptom? Acute, or Chronic, or Acute on Chronic? Uncomplicated (without systemic symptoms) or Complicated (systemic symptoms)? @ -1. Dyspepsia Side effects of treatment? @ -No Exacerbation, Progression, or Severe Exacerbation? @ -No Poses a threat to life or bodily function? How? (Chest pain, USA, AR, pneumonia, PE, COPD, DKA, ARF, appy, cholecystitis, CVA, Diverticulitis, Homicidal, Suicidal, threat to staff... and all critical care pts) @ -No - Lab Data Result diagrams: 12/25/22 01:20 12/25/22 01:20 Lab Results 12/25/22 12/25/22 12/25/22 Range/Units 01:20 01:20 01:20 WBC 10.3 (3.8-10.6) k/uL RBC 4.00 (3.80-5.40) m/uL Hgb 12.8 (11.4-16.0) gm/dL Hct 37.8 (34.0-46.0) % MCV 94.4 (80.0-100.0) fL MCH 31.9 (25.0-35.0) pg MCHC 33.7 (31.0-37.0) g/dL RDW 13.0 (11.5-15.5) % Plt Count 274 (150-450) k/uL MPV 8.1 Neutrophils % 58 % Lymphocytes % 32 % Monocytes % 6 % Eosinophils % 2 % Basophils % 0 % Neutrophils # 6.0 (1.3-7.7) k/uL Lymphocytes # 3.3 (1.0-4.8) k/uL Monocytes # 0.6 (0-1.0) k/uL Eosinophils # 0.2 (0-0.7) k/uL Basophils # 0.0 (0-0.2) k/uL Sodium 136 L (137-145) mmol/L Potassium 3.9 (3.5-5.1) mmol/L Chloride 100 (98-107) mmol/L Carbon Dioxide 27 (22-30) mmol/L Anion Gap 9 mmol/L BUN 21 H (7-17) mg/dL Creatinine 1.44 H (0.52-1.04) mg/dL Est GFR (CKD-EPI)AfAm 53 (>60 ml/min/1.73 sqM) Est GFR (CKD-EPI)NonAf 46 (>60 ml/min/1.73 sqM) Glucose 94 (74-99) mg/dL Calcium 9.5 (8.4-10.2) mg/dL Magnesium 1.9 (1.6-2.3) mg/dL Total Bilirubin 0.4 (0.2-1.3) mg/dL AST 22 (14-36) U/L ALT 15 (4-34) U/L Alkaline Phosphatase 59 (38-126) U/L Troponin I <0.012 (0.000-0.034) ng/mL Total Protein 7.4 (6.3-8.2) g/dL Albumin 4.2 (3.5-5.0) g/dL Disposition Clinical Impression: Odynophagia Disposition: HOME SELF-CARE Condition: Fair Instructions (If sedation given, give patient instructions): Esophagitis (ED) Prescriptions: Omeprazole 40 mg PO DAILY #24 cap Is patient prescribed a controlled substance at d/c from ED?: No Referrals: Jackie Barrera MD [STAFF PHYSICIAN] - 1-2 days Time of Disposition: 02:30
[2022-12-25 01:14] VITALS: PULSE 52
[2022-12-25 01:35] LABS: Basophils % (A) 0 %; Eosinophils # (A) 0.2 k/uL (0-0.7); Eosinophils % (A) 2 %; HCT 37.8 % (34.0-46.0); HGB 12.8 gm/dL (11.4-16.0); Lymphocytes # (A) 3.3 k/uL (1.0-4.8); Lymphocytes % (A) 32 %; MCH 31.9 pg (25.0-35.0); MCHC 33.7 g/dL (31.0-37.0); MCV 94.4 fL (80.0-100.0); Mean Platelet Volume 8.1; Monocytes # (A) 0.6 k/uL (0-1.0); Monocytes % (A) 6 %; Neutrophils % (A) 58 %; Platelet Count 274 k/uL (150-450); WBC 10.3 k/uL (3.8-10.6)
[2022-12-25 01:47] LABS: ALT 15 U/L (4-34); AST 22 U/L (14-36); African American GFR (CKD) 53 (>60 ml/min/1.73 sqM); Albumin 4.2 g/dL (3.5-5.0); Alkaline Phosphatase 59 U/L (38-126); Anion Gap 9 mmol/L; Blood Urea Nitrogen 21 mg/dL (7-17); Calcium 9.5 mg/dL (8.4-10.2); Carbon Dioxide 27 mmol/L (22-30); Chloride 100 mmol/L (98-107); Glucose 94 mg/dL (74-99); Magnesium 1.9 mg/dL (1.6-2.3); Non-African American GFR(CKD) 46 (>60 ml/min/1.73 sqM); Potassium 3.9 mmol/L (3.5-5.1); Sodium 136 mmol/L (137-145); Total Bilirubin 0.4 mg/dL (0.2-1.3); Total Protein 7.4 g/dL (6.3-8.2)
--- NOTE | 2022-12-25 01:50 | XR ---
EXAMINATION TYPE: XR chest 2V DATE OF EXAM: 12/25/2022 COMPARISON: NONE HISTORY: Chest pain. TECHNIQUE: Frontal and lateral views of the chest are obtained. FINDINGS: There is no focal air space opacity, pleural effusion, or pneumothorax seen. The cardiac silhouette size is within normal limits. The osseous structures are intact. IMPRESSION: No acute cardiopulmonary process.
[2022-12-25 02:25] LABS: Prothrombin Time 10.3 sec (9.0-12.0)
[2022-12-25 02:42] VITALS: BP 138/87; RESP 14
== END 2022-12-25 02:54 | disposition home or self-care (01) ==
LOC: EC 00:13
DX: R13.10 Dysphagia, unspecified (principal); F12.90 Cannabis use, unspecified, uncomplicated; Z91.040 Latex allergy status; Z88.6 Allergy status to analgesic agent; Z87.891 Personal history of nicotine dependence; Z90.49 Acquired absence of other specified parts of digestive tract; Z88.8 Allergy status to other drugs, medicaments and biological substances; Z88.5 Allergy status to narcotic agent
CPT/HCPCS: 36415; 71046; 80053; 83735; 84484; 85025; 85610; 85730; 93005; 99285

== ENCOUNTER 2023-01-26 05:56 | Day surgery (SDC) | payer MEDICARE, OTHER ==
[~2023-01-26 05:56] MED LIST changes: +ACETAMINOPHEN TAB 500 MG TAB PO PRN; +GABAPENTIN 300 MG CAP PO PRN; -LACTATED RINGERS 1,000 ML IV SCH; -LIDOCAINE 1% (10MG/ML) FOR IV START INTRADERMA PRN; +ONDANSETRON 4 MG/2 ML VIAL IVP PRN; +TRANEXAMIC 1,000 MG/100ML-NACL 1,000 MG in SALINE 1 100ML.BAG IVPB PRN
[2023-01-26] MEDS ORDERED: DEXAMETHASONE SOD PHOSPHATE 4 MG/ML 1 ML VIAL IV ONE (06:00)
[2023-01-26] MEDS ORDERED: ONDANSETRON 4 MG/2 ML VIAL IVP ONE ×2 (06:00→12:00)
[2023-01-26] MEDS ORDERED: fentaNYL (PF) 50 MCG/ML 2 ML AMP IV PRN (06:00)
[2023-01-26] MEDS: LACTATED RINGERS 1,000 ML IV SCH ×2 (06:18→12:00)
--- NOTE | 2023-01-26 07:21 | P.HPOR ---
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 Cervantes (GOO)01/26/2023 07:20AM Past Medical History Past Medical History: GERD/Reflux, Osteoarthritis (OA) Additional Past Medical History / Comment(s): CHRONIC LOW BACK PAIN History of Any Multi-Drug Resistant Organisms: MRSA Date of last positivie culture/infection: 2010 MDRO Source:: unk Past Surgical History: Section, Cholecystectomy, Orthopedic Surgery Additional Past Surgical History / Comment(s): Pain clinic procedure, R ankle surgery/hardware, nasal surgery, right leg surgery/hardware x3 Past Anesthesia/Blood Transfusion Reactions: No Reported Reaction Additional Past Anesthesia/Blood Transfusion Reaction / Comment(s): Pt has never received blood. Smoking Status: Former smoker - Past Family History Mother Family Medical History: Liver Disease Additional Family Medical History / Comment(s): Father Family Medical History: Hypertension Medications and Allergies Home Medications Medication Instructions Recorded Confirmed Type Omeprazole 40 mg PO DAILY #24 cap 12/25/22 01/26/23 Rx Baclofen [Lioresal] 10 mg PO TID PRN 01/25/23 01/26/23 History Allergies Allergy/AdvReac Type Severity Reaction Status Date / Time latex Allergy Rash/Hives Verified 01/26/23 06:46 tramadol Allergy Abdominal Verified 01/26/23 06:46 Pain Physical Examination Osteopathic Statement: *. No significant issues noted on an osteopathic structural exam other than those noted in the History and Physical/Consult.
[2023-01-26] MEDS ORDERED: PROPOFOL 10 MG/ML 20 ML VIAL IV ONE (07:25)
[2023-01-26] MEDS ORDERED: SUCCINYLCHOLINE CHLORIDE 200 MG/10 ML VIAL IV ONE (07:25)
[2023-01-26] MEDS ORDERED: TRANEXAMIC 1,000 MG/100ML-NACL PREMIX BAG ONE (07:25)
[2023-01-26] MEDS ORDERED: MIDAZOLAM 2 MG/2 ML VIAL ONE (07:25)
[2023-01-26] MEDS ORDERED: LIDOCAINE 2% INJ 20 MG/ML (2 ML VIAL) ONE (07:25)
[2023-01-26] MEDS ORDERED: GLYCOPYRROLATE 0.2 MG/ML 2 ML VIAL ONE (07:25)
[2023-01-26] MEDS ORDERED: HYDROmorphone (PF) 1 MG/ML ONE (07:25)
[2023-01-26] MEDS ORDERED: NEOSTIGMINE 1 MG/ML 10 ML VIAL ONE (07:25)
[2023-01-26] MEDS ORDERED: fentaNYL (PF) 50 MCG/ML 2 ML AMP ONE (07:25)
[2023-01-26] MEDS ORDERED: ROCURONIUM 10 MG/ML (5 ML VIAL) IV ONE (07:25)
[2023-01-26] MEDS ORDERED: GELATIN SPONGE,ABSORB (LARGE) 1 EACH SPONGE TOPICAL ONE (08:30)
[2023-01-26] MEDS ORDERED: THROMBIN (BOVINE) 5,000 UNIT VIAL TOPICAL ONE (08:31)
[2023-01-26] MEDS ORDERED: methylPREDNISolone ACETATE 40 MG/ML 1 ML VIAL MISCELLANE ONE (08:47)
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
[2023-01-26] MEDS ORDERED: HYDROmorphone 0.5 MG/0.5 ML SYRINGE IVP ONE ×3 (09:28→10:13)
[2023-01-26] MEDS ORDERED: MEPERIDINE 50 MG/ML SYRINGE IVP ONE (09:48)
[2023-01-26] MEDS ORDERED: HYDROcodone/APAP 5-325MG 1 EACH TAB ONE (12:26)
[2023-01-26] MEDS ORDERED: HYDROcodone/APAP 5-325MG 1 EACH TAB PO ONE (12:30)
[2023-01-26] MEDS ORDERED: droPERidol 5 MG/2 ML VIAL IVP STA (13:14)
[2023-01-26] MEDS ORDERED: HYDROcodone/APAP 5-325MG 1 EACH TAB PO PRN (14:32)
[2023-01-26] MEDS ORDERED: HYDROmorphone 0.5 MG/0.5 ML SYRINGE IVP PRN (14:32)
--- NOTE | 2023-01-26 15:06 | FL ---
EXAMINATION TYPE: FL guidance operating room, XR lumbar spine 2 or 3V DATE OF EXAM: 01/26/2023 Comparison: None Clinical History: 37-year-old female DISCECTOMY Findings: Intraoperative fluoroscopy during procedure at the L4-L5 level. Lumbar discectomy, fl time 9 secs, DAP 2.0398 mGycm2. Total 9 images. Impression: Intraoperative fluoroscopy as above.
[2023-01-26] MEDS: ONDANSETRON 4 MG/2 ML VIAL IVP PRN (15:54)
[2023-01-26] MEDS: ACETAMINOPHEN TAB 325 MG TAB PO SCH (17:19)
[2023-01-26] MEDS ORDERED: METOCLOPRAMIDE 10 MG TAB PO PRN (21:19)
[2023-01-27] MEDS: ACETAMINOPHEN TAB 325 MG TAB PO SCH ×3 (00:08→12:27)
[2023-01-27 08:12] VITALS: BP 102/68; PULSE 55; RESP 16; TEMP 99.2
[2023-01-27] MEDS: ONDANSETRON 4 MG/2 ML VIAL IVP PRN (08:50)
--- NOTE | 2023-01-27 09:52 | P.PN ---
Subjective Progress Note Date: 01/27/23 Principal diagnosis: Status post L4-L5 left-sided microdiscectomy Patient was evaluated today at bedside, she was resting in her hospital bed. Patient was kept overnight in the hospital due to significant nausea after surgery. At bedside today, patient seems more comfortable. She's been trying to limit narcotic use at this time. He states that the left lower extremity discomfort is completely resolved since surgery. She does note some discomfort in the low back region near her incision. She has been up and ambulating with no assistive devices and having issues remaining. Patient denies any headaches, lightheadedness, chest pain or shortness of breath. Objective - Vital Signs Vital signs: Vital Signs Temp 99.2 F 01/27/23 07:12 Pulse 55 L 01/27/23 07:12 Resp 16 01/27/23 07:12 BP 102/68 01/27/23 07:12 Pulse Ox 100 01/27/23 07:12 FiO2 Intake & Output 01/26/23 01/27/23 01/27/23 18:59 06:59 18:59 Intake Total 2500 Output Total 25 Balance 2475 Weight 101.1 kg Intake: IV 2500 Output: Estimated Blood Loss 25 Other: Voiding Method Toilet # Voids 2 3 # Bowel Movements 0 - Exam Gen: AOx3, NAD VSS stable at this time Integument: Postoperative dressing is in good position and condition, no drainage noted Palpation: Tenderness with palpation of the paraspinal region in the lumbar area ROM: Full range of motion in all major muscle groups of bilateral upper and lower extremities, no focal deficits appreciated Sensory Exam: Senory exam to light touch is intact C5-T1 Senosry exam to light touch is intact L2-S1 Motor: 5/5 strength appreciated in the bilateral upper extremities with shoulder elevation, shoulder abduction, elbow extension, full flexion, wrist extension, wrist flexion, fund development manager 5/5 strength appreciated in the bilateral lower extremities with hip flexion, knee extension, knee flexion, plantar flexion, dorsiflexion, EHL, FHL Reflexes: 2/4 in all UE and LE Negative Brandy's, clonus, Babinski bilaterally Special Test: Negative straight leg raise bilaterally Assessment and Plan Assessment: Postoperative day #1 status post microdiscectomy L4-L5 left-sided Plan: Pain control, we'll not utilize [place] for discharge. We'll utilize Tylenol 31 tablet every 6 hours along with Lyrica 150 mg twice a day. We'll also plan to send with Regsusie to help with nausea Dressing instructions were discussed, this to include showering within the next 3-5 days. Activity level instructions were discussed from this to include avoiding excessive bending, twisting and lifting Plan for follow-up in 2 weeks in office, please contact office with any questions or concerns Time with Patient: Less than 30
--- NOTE | 2023-01-27 09:57 | P.DS ---
Providers Date of admission: 01/26/2023 Expected date of discharge: 01/27/23 Attending physician: Keyur Cervantes DO Primary care physician: Kamala Bush Hospital Course: Date of admission: 01/26/2023 Date of discharge: 01/27/2023 Admission diagnosis: Status post L4-L5 left-sided microdiscectomy Discharge diagnosis: Same Attending physician: Dr. Cervantes Surgical procedures: L4-L5 left-sided microdiscectomy Brief history: Patient is a 37-year-old female who has been evaluated and managed in the outpatient setting for low back pain including left lower extremity radiculopathy. Patient has undergone multiple conservative measures, this including physical therapy and epidural steroid injections with minimal relief. Patient was then scheduled for a elective microdiscectomy involving L4- L5 region. Hospital course: Details of patient's surgery can be found in operative report. Patient tolerated the procedure well and was subsequently transported to orthopedic floor. Patient's orthopeidc and medical care was provided daily. Patient had daily laboratory tests performed for evaluation of overall blood counts. Patient had daily physical therapy to include strengthening range of motion as well as education with walker ambulation. Patient was treated with compression stocking for their postoperative DVT prophylaxis during their inpatient stay. Patient was noted to have a relatively uneventful postoperative course. Patient reported satisfactory pain control with oral pain medications by postoperative day 1. Patient showed satisfactory progress with physical therapy. Patient moved steadily through the program and had no difficulty meeting the goals by postoperative day 1. Given patient's otherwise satisfactory course and having met physical therapy goals, plan is to discharge patient home on postoperative day 1. Discharge condition/disposition: Patient will be discharged home in stable condition. Discharge medications: Instructions are given on resumption of patient's normal daily medications per primary care recommendation, in addition patient will be prescribed Tylenol 3, Lyrica 150 mg, Duricef 500 mg, Reglan 10 mg. Spine Discharge and Recovery Instructions All medication refills should be obtained through your primary care doctor or your clinic spine surgeon. Please discuss prescription refills at your follow up appointment. Do not call the hospital for medication refills. Dressing: Leave your dressing in place for a total of 5 days post operatively. Then you may remove your dressing and leave open to air. Keep the area clean and if not able to keep area clean, then cover with sterile gauze and tape. Showering: You may shower 3 days after your procedure allowing soap and water to run over incision. Do not scrub. Do not soak. Blot dry. Follow up: Please confirm a follow up appointment with your surgeon 3 weeks post operatively. Please make an appointment to follow up with your PCP in 1-2 weeks after surgery for evaluation 3 phase, 3-week plan POST OP WEEKS 1-3 1. Lifting/carrying/pushing/pulling limited to less than 5 pounds. 2. Do not sit for longer than 15 minutes at one time. Get up and walk around. Prolonged sitting is NOT advised. If you lay down, see if you can tolerate laying down on you front (belly side) 3. Walk for periods of 15 minutes = 1 mile but no longer; do it multiple times times each day. 4. Ice your low back after activity. POST OP WEEKS 3-6 1. Lifting limited to less than 20 pounds. 2. Do not sit for longer than 30 minutes at a time. Frequently change positions. Use a sit-to stand workstation or take frequent breaks from sitting if you have returned to work. 3. Walk for 30 minutes each day. If possible, do these three or more times a day POST OP WEEKS 6+ At your 6-week appointment we will give you a physical therapy referral to focus on a core stabilization and strengthening program. You should also work on leg & buttock strengthening, hamstring & quadriceps stretching, and continue a low impact aerobic activity program such as swimming, walking, or riding a stationary bicycle. During the initial 6 weeks after your surgery, you are at the highest risk of re-injuring your spine. You should generally avoid BLTs (bending, lifting and twisting combination motions) and follow the above guidelines to reduce the chance of reinjury. You can anticipate post op appointments in our office at approximately 3 weeks and 6 weeks after your surgery. INCISION CARE: If your incision is not draining you do NOT need to cover it with a dressing. Keep your incision clean, dry and intact. In most cases, we apply skin glue, kurt or sutures to the incision at the time of surgery. This will be like a crust or have the appearance of a scab and will fall off in time on its own. The stitches or kurt need to be removed at 3 weeks post op appointment. You may begin to shower 3 days after surgery (this allows the glue to moreno well). However, please avoid scrubbing the incision site or peeling off any of the skin glue. This will ensure optimal healing of your incision. Also, during this time avoid soaking the incision area in water - this includes swimming pools, hot tubs or baths. No ointments, lotions or oils on the incision until your surgeon allows. Leave kurt, sutures or glue in place. Neurological dysfunction that comes on suddenly can also be a sign of a stroke. Below some common symptoms of a stroke are listed: B - balance difficulty such as sudden onset walking or leaning to one side - NEW E - eye problem such as sudden double vision or trouble seeing on one side - NEW F - Facial weakness or numbness on one side - NEW A - Arm or leg weakness or numbness on one side - NEW S - Slurred speech or difficulty with word finding - NEW T - Time is BRAIN! Call 911 as soon as you recognize these symptoms Diet: Consume a regular diet rich in vegetables and lean protein such as chicken or fish. You should consume in a ratio of approximately 20% fats|40% carbohydrates|40%protein. Vegetables, sweet potatoes, brown rice or quinoa are examples of good carbohydrates. Chips, white bread, cookies and sweets/sugar are examples of bad carbohydrates. Limit your bad carbs, go wild with good carbs. "Life's Simple 7" Guidelines as per [employer] [employer] These will help you reclaim your life after surgery and liquor bridge operator helper in your recovery, keeping in mind your restrictions. (1) Get Active. Physical activity can help people lose weight, control high blood pressure and cholesterol, feel emotionally better, and sleep better. (2) Control Cholesterol. Avoid a diet high in saturated fat, trans fat, & cholesterol. Limit whole milk & cream, ice cream, butter, egg yolks, processed meats (like sausage and hot dogs), and fatty meats. Choose healthy foods that are low in saturated fat, trans fat and cholesterol which include: Fruits and vegetables, fiber rich grain products (like whole grain pasta and brown rice), lean meat such as chicken, fish, nuts, seeds, and l egumes. (3) Eat Better. Eat small portions. Shop at the grocery with a list and do not stray from it. Tips for a healthy diet include: Limit sodium intake to less than 1500mg daily, avoid prepackaged, processed, and fast foods, choose a diet rich in fruits, vegetables, and whole grain, high fiber foods, and limit saturated & cholesterol in your diet. (4) Manage Blood Pressure. If you have high blood pressure, you should have a cuff at home so that you can check your blood pressure regularly. Be sure you have a good cuff. An arm one is generally better than a wrist one. Bring the cuff to a doctor's appointment to validate that the measurements that your cuff are taking are accurate. Take your blood pressure twice daily when you are sitting down and relaxing. Record the numbers in a log and bring this log with you to your doctors' appointments. (5) Lose Weight if your BMI is above 25. A healthy BMI is between 19-25. To calculate Your BMI, you may use a Standard BMI Calculator on the NIH BMI website: <www.nhlbi.nih.gov/guidelines/obesity/BMI/bmicalc.htm>. Weigh oneself daily. If you are overweight, set a goal to lose weight. A pound a week loss if needed is a good target. (6) Reduce Blood Sugar. Limit foods and liquids with "added sugars." (Added sugars include sucrose, fructose, glucose, maltose, dextrose, high fructose corn syrup, corn syrup, concentrated fruit juice and honey). (7) Stop Smoking. If you smoke, quitting smoking is one of the best things that you can do for your health. Smoking increases your risk of heart attack, stroke, and peripheral vascular disease, which is a build-up of plaque in your arteries. Please discard all the cigarettes and lighters in your house. Have a plan for what you will do when you have the urge to smoke. Direct and second- hand smoke shortens your life as well as the lives of your family, friends and others around you. For your health and the health of those around you, please consider quitting! Proper Bending Body Mechanics: Maintain a wide stance with one foot slightly in front of the other. Keep your back straight. Bend utilizing the strength in your hips and knees. Do not bend at the waist. Maintain the lifted object at your waist-level close to your body. Avoid lifting weight that causes immediately pain or pain anywhere in the body afterwards. Smoking/Nicotine If there was ever one thing that you could do to increase your overall health, decrease your risk of cardiovascular problems by about 39% the second you make the choice, it is to STOP SMOKING. Your body's most instant gratification is the second you stop smoking. We have all heard the studies, read the articles but it is true, smoking is extremely bad for your overall health, and moreover it is detrimental to your bone health. Nicotine, IN ANY FORM, kills bone cells, prevents your body from healing fractures, and significantly prolongs healing after surgery. In spine surgery specifically, it increases your risk of not healing your bones to create a fusion and increases your risk of having a revision surgery due to this up to 60%. I know it is hard. I know it feels impossible. But there are ways. Take control of your life. We are here to help you through it. And when you are ready, ask us and we can direct you to help if you desire. Use the START Plan to Quit Smoking (please visit the [employer] website listed below for more information): S = Set a quit date. Choose a date within the next 2 weeks, so you have enough time to prepare without losing your motivation to quit. If you mainly smoke at work, quit on the weekend, so you have a few days to adjust to the change. T = Tell family, friends, and co-workers that you plan to quit. Let your friends and family in on your plan to quit smoking and tell them you need their support and encouragement to stop. Look for a quit julian who wants to stop smoking as well. You can help each other get through the rough times. A = Anticipate and plan for the challenges you'll face while quitting. Most people who begin smoking again do so within the first 3 months. You can help yourself make it through by preparing ahead for common challenges, such as nicotine withdrawal and cigarette cravings. R = Remove cigarettes and other tobacco products from your home, car, and work. Throw away all your cigarettes (no emergency pack!), lighters, ashtrays, and matches. Wash your clothes and freshen up anything that smells like smoke. Sha mpoo your car, clean your drapes and carpet, and steam your furniture. T = Talk to your doctor about getting help to quit. Your doctor can prescribe medication to help with withdrawal and suggest other alternatives. If you can't see a doctor, you can get many products over the counter at your local pharmacy or grocery store, including the nicotine patch, nicotine lozenges, and nicotine gum. Resources for Quitting Smoking: <https://www.[place].gov/documents/[facility]/Quit_Tobacco_Resources_for_patients_313 480_7.pdf> Supplementation: Take recommended dosages of Vitamin D and Calcium to help fortify your bones and help them to heal. See your health maintenance packet for dosages and recommended levels. DVT/VTE prophylaxis: You will be given compression stockings from the hospital. Wear these daily for the first two weeks after surgery. You may take them off at night. You may be prescribed a medication to help thin your blood. Take this as directed. If you are not prescribed this medication, early and frequent ambulation has been shown to be the best prophylaxis to deep vein thrombosis and sequelae related to this event. Procedures: L4-L5 left-sided microdiscectomy Patient Condition at Discharge: Good Plan - Discharge Summary Discharge Rx Participant: Yes New Discharge Prescriptions: New cefaDROXiL [Duricef] 500 mg PO Q12HR 5 Days #10 cap Metoclopramide [Reglan] 10 mg PO ACHS #20 tab Acetaminophen-Codeine 300-30mg [Tylenol w/codeine #3] 1 tab PO Q6H PRN 7 Days #28 tablet PRN Reason: Pain Pregabalin [Lyrica] 150 mg PO BID #30 capsule No Action Baclofen [Lioresal] 10 mg PO TID PRN PRN Reason: Pain Omeprazole 40 mg PO DAILY #24 cap Discharge Medication List Omeprazole 40 mg PO DAILY #24 cap 12/25/22 [Rx] Baclofen [Lioresal] 10 mg PO TID PRN 01/25/23 [History] Metoclopramide [Reglan] 10 mg PO ACHS #20 tab 01/26/23 [Rx] cefaDROXiL [Duricef] 500 mg PO Q12HR 5 Days #10 cap 01/26/23 [Rx] Acetaminophen-Codeine 300-30mg [Tylenol w/codeine #3] 1 tab PO Q6H PRN 7 Days #28 tablet 01/27/23 [Rx] Pregabalin [Lyrica] 150 mg PO BID #30 capsule 01/27/23 [Rx] Follow up Appointment(s)/Referral(s): Shaina Mancia NPC [Nurse Practitioner] - 02/10/23 11:00 am Patient Instructions/Handouts: *Surgery [facility] - (Anesthesia) Discharge Instructions Outpatient Surgery, Lumbar Discectomy (DC), Lumbar Discectomy (GEN) Activity/Diet/Wound Care/Special Instructions: Spine Discharge and Recovery Instructions Date of Surgery: 01/26/2023 Diagnosis: L4 5 and L5-S1 left-sided disc herniation Procedure: L4 5 left microendoscopic Medications: see list All medication refills should be obtained through your primary care doctor or your clinic spine surgeon. Please discuss prescription refills at your follow up appointment. Do not call the hospital for medication refills. Activity: [Encourage ambulation with assist of walker] [OOB 6-8x daily] [PT/OT daily work on balance, strength and mobility] [Up in chair with all meals, OOB all meals] [Shower daily] Brace: no braces needed Dressing: Leave your dressing in place for a total of 3 days post operatively. Then you may remove your dressing and leave open to air. Keep the area clean and if not able to keep area clean, then cover with sterile gauze and tape. Showering: You may shower 3 days after your procedure allowing soap and water to run over incision. Do not scrub. Do not soak. Blot dry. Follow up: Please confirm a follow up appointment with your surgeon 2 weeks post operatively. Please make an appointment to follow up with your PCP in 1-2 weeks after surgery for evaluation 3 phase, 3-week plan POST OP WEEKS 1-3 1. Lifting/carrying/pushing/pulling limited to less than 5 pounds. 2. Do not sit for longer than 15 minutes at one time. Get up and walk around. Prolonged sitting is NOT advised. If you lay down, see if you can tolerate laying down on you front (belly side) 3. Walk for periods of 15 minutes = 1 mile but no longer; do it multiple times times each day. 4.Ice your low back after activity. POST OP WEEKS 3-6 1. Lifting limited to less than 20 pounds. 2. Do not sit for longer than 30 minutes at a time. Frequently change positions. Use a sit-to stand workstation or take frequent breaks from sitting if you have returned to work. 3. Walk for 30 minutes each day. If possible, do these three or more times a day POST OP WEEKS 6+ At your 6-week appointment we will give you a physical therapy referral to focus on a core stabilization and strengthening program. You should also work on leg & buttock strengthening, hamstring & quadriceps stretching, and continue a low impact aerobic activity program such as swimming, walking, or riding a stat ionary bicycle. During the initial 6 weeks after your surgery, you are at the highest risk of re-injuring your spine. You should generally avoid BLTs (bending, lifting and twisting combination motions) and follow the above guidelines to reduce the chance of reinjury. You can anticipate post op appointments in our office at approximately 3 weeks and 6 weeks after your surgery. INCISION CARE: If your incision is not draining you do NOT need to cover it with a dressing. Keep your incision clean, dry and intact. In most cases, we apply skin glue, kurt or sutures to the incision at the time of surgery. This will be like a crust or have the appearance of a scab and will fall off in time on its own. The stitches or kurt need to be removed at 3 weeks post op appointment. You may begin to shower 3 days after surgery (this allows the glue to moreno well). However, please avoid scrubbing the incision site or peeling off any of the skin glue. This will ensure optimal healing of your incision. Also, during this time avoid soaking the incision area in water - this includes swimming pools, hot tubs or baths. No ointments, lotions or oils on the incision until your surgeon allows. Leave kurt, sutures or glue in place. Neurological dysfunction that comes on suddenly can also be a sign of a stroke. Below some common symptoms of a stroke are listed: B - balance difficulty such as sudden onset walking or leaning to one side - NEW E - eye problem such as sudden double vision or trouble seeing on one side - NEW F - Facial weakness or numbness on one side - NEW A - Arm or leg weakness or numbness on one side - NEW S - Slurred speech or difficulty with word finding - NEW T - Time is BRAIN! Call 911 as soon as you recognize these symptoms Diet: Consume a regular diet rich in vegetables and lean protein such as chicken or fish. You should consume in a ratio of approximately 20% fats|40% carbohydrates|40%protein. Vegetables, sweet potatoes, brown rice or quinoa are examples of good carbohydrates. Chips, white bread, cookies and sweets/sugar are examples of bad carbohydrates. Limit your bad carbs, go wild with good carbs. "Life's Simple 7" Guidelines as per [employer] [employer] These will help you reclaim your life after surgery and liquor bridge operator helper in your recovery, keeping in mind your restrictions. (1) Get Active. Physical activity can help people lose weight, control high blood pressure and cholesterol, feel emotionally better, and sleep better. (2) Control Cholesterol. Avoid a diet high in saturated fat, trans fat, & cholesterol. Limit whole milk & cream, ice cream, butter, egg yolks, processed meats (like sausage and hot dogs), and fatty meats. Choose healthy foods that are low in saturated fat, trans fat and cholesterol which include: Fruits and vegetables, fiber rich grain products (like whole grain pasta and brown rice), lean meat such as chicken, fish, nuts, seeds, and legumes. (3) Eat Better. Eat small portions. Shop at the grocery with a list and do not stray from it. Tips for a healthy diet include: Limit sodium intake to less than 1500mg daily, avoid prepackaged, processed, and fast foods, choose a diet rich in fruits, vegetables, and whole grain, high fiber foods, and limit saturated & cholesterol in your diet. (4) Manage Blood Pressure. If you have high blood pressure, you should have a cuff at home so that you can check your blood pressure regularly. Be sure you have a good cuff. An arm one is generally better than a wrist one. Bring the cuff to a doctor's appointment to validate that the measurements that your cuff are taking are accurate. Take your blood pressure twice daily when you are sitting down and relaxing. Record the numbers in a log and bring this log with you to your doctors' appointments. (5) Lose Weight if your BMI is above 25. A healthy BMI is between 19-25. To calculate Your BMI, you may use a Standard BMI Calculator on the NIH BMI website: <www.nhlbi.nih.gov/guidelines/obesity/BMI/bmicalc.htm>. Weigh oneself daily. If you are overweight, set a goal to lose weight. A pound a week loss if needed is a good target. (6) Reduce Blood Sugar. Limit foods and liquids with "added sugars." (Added sugars include sucrose, fructose, glucose, maltose, dextrose, high fructose corn syrup, corn syrup, concentrated fruit juice and honey). (7) Stop Smoking. If you smoke, quitting smoking is one of the best things that you can do for your health. Smoking increases your risk of heart attack, stroke, and peripheral vascular disease, which is a build-up of plaque in your arteries. Please discard all the cigarettes and lighters in your house. Have a plan for what you will do when you have the urge to smoke. Direct and second- hand smoke shortens your life as well as the lives of your family, friends and others around you. For your health and the health of those around you, please consider quitting! Proper Bending Body Mechanics: Maintain a wide stance with one foot slightly in front of the other. Keep your back straight. Bend utilizing the strength in your hips and knees. Do not bend at the waist. Maintain the lifted object at your waist-level close to your body. Avoid lifting weight that causes immediately pain or pain anywhere in the body afterwards. Smoking/Nicotine If there was ever one thing that you could do to increase your overall health, decrease your risk of cardiovascular problems by about 39% the second you make the choice, it is to STOP SMOKING. Your body's most instant gratification is the second you stop smoking. We have all heard the studies, read the articles but it is true, smoking is extremely bad for your overall health, and moreover it is detrimental to your bone health. Nicotine, IN ANY FORM, kills bone cells, prevents your body from healing fractures, and significantly prolongs healing after surgery. In spine surgery specifically, it increases your risk of not healing your bones to create a fusion and increases your risk of having a revision surgery due to this up to 60%. I know it is hard. I know it feels impossible. But there are ways. Take control of your life. We are here to help you through it. And when you are ready, ask us and we can direct you to help if you desire. Use the START Plan to Quit Smoking (please visit the [employer] website listed below for more information): S = Set a quit date. Choose a date within the next 2 weeks, so you have enough time to prepare without losing your motivation to quit. If you mainly smoke at work, quit on the weekend, so you have a few days to adjust to the change. T = Tell family, friends, and co-workers that you plan to quit. Let your friends and family in on your plan to quit smoking and tell them you need their support and encouragement to stop. Look for a quit julian who wants to stop smoking as well. You can help each other get through the rough times. A = Anticipate and plan for the challenges you'll face while quitting. Most people who begin smoking again do so within the first 3 months. You can help yourself make it through by preparing ahead for common challenges, such as nicotine withdrawal and cigarette cravings. R = Remove cigarettes and other tobacco products from your home, car, and work. Throw away all your cigarettes (no emergency pack!), lighters, ashtrays, and matches. Wash your clothes and freshen up anything that smells like smoke. Shampoo your car, clean your drapes and carpet, and steam your furniture. T = Talk to your doctor about getting help to quit. Your doctor can prescribe medication to help with withdrawal and suggest other alternatives. If you can't see a doctor, you can get many products over the counter at your local pharmacy or grocery store, including the nicotine patch, nicotine lozenges, and nicotine gum. Resources for Quitting Smoking: <https:// w.[place].gov/documents/[facility]/Quit_Tobacco_Resources_for_patients_313480_7.pdf> Supplementation: Take recommended dosages of Vitamin D and Calcium to help fortify your bones and help them to heal. See your health maintenance packet for dosages and recommended levels. DVT/VTE prophylaxis: You will be given compression stockings from the hospital. Wear these daily for the first two weeks after surgery. You may take them off at night. You may be prescribed a medication to help thin your blood. Take this as directed. If you are not prescribed this medication, early and frequent ambulation has been shown to be the best prophylaxis to deep vein thrombosis and sequelae related to this event. Discharge Disposition: HOME SELF-CARE
== END 2023-01-27 12:28 | disposition home or self-care (01) ==
LOC: OR 05:56 → 4SSUR 09:24 → OR 01-27 12:28
PROVIDERS: ATTEND Orthopaedic Surgery
DX: M51.16 Intervertebral disc disorders with radiculopathy, lumbar region (principal); K21.9 Gastro-esophageal reflux disease without esophagitis; G89.29 Other chronic pain; Z90.49 Acquired absence of other specified parts of digestive tract; Z98.891 History of uterine scar from previous surgery; Z98.890 Other specified postprocedural states; Z87.891 Personal history of nicotine dependence; Z82.49 Family history of ischemic heart disease and other diseases of the circulatory system; Z91.040 Latex allergy status; Z88.5 Allergy status to narcotic agent; Z79.899 Other long term (current) drug therapy
CPT/HCPCS: 86900; 86901; 86850; 72100; 36415; 63030; J1030; J3360; J2175; J0690; J2405; J1170; J1790; 81025

== ENCOUNTER 2023-02-11 15:55 | Emergency (ER) | payer MEDICARE, OTHER ==
--- NOTE | 2023-02-11 16:03 | ED ---
General Adult HPI - General Stated complaint: leaking incision wound Time Seen by Provider: 02/11/23 16:02 Source: patient Mode of arrival: ambulatory Limitations: no limitations - History of Present Illness Initial comments: 37-year-old female presenting with chief complaint of drainage from her incision to the lower back. She had a microdiscectomy with Dr. Cervantes on 01/26. States that just prior to arrival she started having discharge from the incision. Denies fevers or chills. Denies pain. No loss of bowel or bladder control or saddle paresthesia. The discharge is clear to yellow. No thick purulent discharge. No abdominal pain. No injury or trauma. - Related Data Home Medications Medication Instructions Recorded Confirmed Baclofen [Lioresal] 10 mg PO TID PRN 01/25/23 01/26/23 Previous Rx's Medication Instructions Recorded Omeprazole 40 mg PO DAILY #24 cap 12/25/22 Metoclopramide [Reglan] 10 mg PO ACHS #20 tab 01/26/23 cefaDROXiL [Duricef] 500 mg PO Q12HR 5 Days #10 cap 01/26/23 Acetaminophen-Codeine 300-30mg 1 tab PO Q6H PRN 7 Days #28 tablet 01/27/23 [Tylenol w/codeine #3] Pregabalin [Lyrica] 150 mg PO BID #30 capsule 01/27/23 cefaDROXiL [Duricef] 500 mg PO Q12HR 10 Days #20 cap 02/11/23 Allergies Allergy/AdvReac Type Severity Reaction Status Date / Time latex Allergy Rash/Hives Verified 02/11/23 16:02 tramadol Allergy Abdominal Verified 02/11/23 16:02 Pain Review of Systems ROS Statement: Those systems with pertinent positive or pertinent negative responses have been documented in the HPI. ROS Other: All systems not noted in ROS Statement are negative. Past Medical History Past Medical History: GERD/Reflux Additional Past Medical History / Comment(s): CHRONIC LOW BACK PAIN History of Any Multi-Drug Resistant Organisms: MRSA Date of last positivie culture/infection: 2010 MDRO Source:: unknown Past Surgical History: Section, Cholecystectomy, Orthopedic Surgery Additional Past Surgical History / Comment(s): Pain clinic procedure, R ankle surgery/hardware, nasal surgery, right leg surgery/hardware x3 Past Anesthesia/Blood Transfusion Reactions: No Reported Reaction Additional Past Anesthesia/Blood Transfusion Reaction / Comment(s): Pt has never received blood. Additional Past Alcohol Use History / Comment(s): Pt started smoking 2006 and quit in 2018 - Past Family History Mother Family Medical History: Liver Disease Additional Family Medical History / Comment(s): Father Family Medical History: Hypertension General Exam - General Exam Comments Initial Comments: Visual Physical Exam Vital signs reviewed General: Well-appearing, nontoxic, no acute distress. Head: Normocephalic, atraumatic Eyes: PERRLA, EOMI ENT: Airway patent Chest: Nonlabored breathing Skin: No visual rash, normal skin tone Neuro: Alert and oriented 3 Musculoskeletal: No gross abnormalities Limitations: no limitations General appearance: alert, in no apparent distress Head exam: Present: atraumatic, normocephalic Eye exam: Present: normal appearance, EOMI Neck exam: Present: normal inspection, full ROM Respiratory exam: Present: normal lung sounds bilaterally. Absent: respiratory distress, wheezes, rales, rhonchi, stridor Cardiovascular Exam: Present: regular rate, normal rhythm, normal heart sounds. Absent: systolic murmur, diastolic murmur, rubs, gallop, clicks Back exam: Present: other (Lower back incision, no erythema or warmth. There is a small amount of dehiscence near the inferior portion of the incision and there is serosanguineous discharge that is able to be expressed). Absent: tenderness Neurological exam: Present: alert, oriented X3 Psychiatric exam: Present: normal affect, normal mood Skin exam: Present: warm, dry, normal color. Absent: rash Course Vital Signs 02/11/23 02/11/23 15:58 16:04 Temperature 97.4 F L Pulse Rate 82 Respiratory 16 Rate Blood Pressure 128/80 O2 Sat by Pulse 96 Oximetry Medical Decision Making - Medical Decision Making Was pt. sent in by a medical professional or institution (, PA, OCCUP THER, urgent c are, hospital, or senior care...) When possible be specific @ -No Did you speak to anyone other than the patient for history (EMS, parent, family, police, friend...)? What history was obtained from this source @ -No Did you review nursing and triage notes (agree or disagree)? Why? @ -I reviewed and agree with nursing and triage notes Were old charts reviewed (outside hosp., previous admission, EMS record, old EKG, old radiological studies, urgent care reports/EKG's, senior care records)? Report findings @ -No old charts were reviewed Differential Diagnosis (chest pain, altered mental status, abdominal pain women, abdominal pain men, vaginal bleeding, weakness, fever, dyspnea, syncope, headache, dizziness, GI bleed, back pain, seizure, CVA, palpatations, mental health, musculoskeletal)? @ -Differential includes wound dehiscence, postop infection, this is not an all inclusive list EKG interpreted by me (3pts min.). @ -As above X-rays interpreted by me (1pt min.). @ -None done CT interpreted by me (1pt min.). @ -None done U/S interpreted by me (1pt. min.). @ -None done What testing was considered but not performed or refused? (CT, X-rays, U/S, labs)? Why? @ -None What meds were considered but not given or refused? Why? @ -None Did you discuss the management of the patient with other professionals (professionals i.e. , PA, OCCUP THER, lab, RT, psych nurse, case management social worker, environmental compliance engineer, teacher, public relations officer, director of casework services)? Give summary @ -I spoke with the patient's surgeon Dr. Cervantes, he advised starting the patient on Duricef 500 mg twice a day for 10 days and having her follow-up in the office within a week. He also asked me to reapply Steri-Strips. Was smoking cessation discussed for >3mins.? @ -No Was critical care preformed (if so, how long)? @ -No Were there social determinants of health that impacted care today? How? (Homelessness, low income, unemployed, alcoholism, drug addiction, transportation, low edu. Level, literacy, decrease access to med. care, fpc, rehab)? @ -No Was there de-escalation of care discussed even if they declined (Discuss DNR or withdrawal of care, Hospice)? DNR status @ -No What co-morbidities impacted this encounter? (DM, HTN, Smoking, COPD, CAD, Cancer, CVA, ARF, Chemo, Hep., AIDS, mental health diagnosis, sleep apnea, mo rbid obesity)? @ -None Was patient admitted / discharged? Hospital course, mention meds given and route, prescriptions, significant lab abnormalities, going to OR and other pertinent info. @ -37-year-old female presenting with chief complaint of drainage from her incision. Patient had a left microdiscectomy on 02/[address] Cervantes. T yayo she started experiencing drainage. On exam there is a less than 1 cm opening near the inferior portion of the incision. Incision does not appear erythematous or swollen. No purulent discharge. Serosanguineous fluid is expressed. Lab work shows WBC 14.0. I spoke with Dr. Cervantes who advised starting the patient on Duricef 500 mg twice a day for 10 days and have her follow-up in the office. Patient is agreeable with this plan, educated on follow-up and alarm symptoms. Follow-up with PCP. Report back to ER with any new or worsening symptoms. Discussed return parameters and answered all questions. Patient conveyed verbal understanding and agreed to the plan. I discussed this case in detail with my attending Dr. Cantu Undiagnosed new problem with uncertain prognosis? @ -No Drug Therapy requiring intensive monitoring for toxicity (Heparin, Nitro, Insulin, Cardizem)? @ -No Were any procedures done? @ -No Diagnosis/symptom? @ -Wound dehiscence, drainage from the incision Acute, or Chronic, or Acute on Chronic? @ -Acute Uncomplicated (without systemic symptoms) or Complicated (systemic symptoms)? @ -Uncomplicated Side effects of treatment? @ -No Exacerbation, Progression, or Severe Exacerbation? @ -No Poses a threat to life or bodily function? How? (Chest pain, [place], [place], pneumonia, PE, COPD, DKA, ARF, appy, cholecystitis, CVA, Diverticulitis, Homicidal, Suicidal, threat to staff... and all critical care pts) @ -Low likelihood - Lab Data Result diagrams: 02/11/23 16:36 02/11/23 16:36 Lab Results 02/11/23 02/11/23 02/11/23 Range/Units 16:36 16:36 16:36 WBC 14.0 H (3.8-10.6) k/uL RBC 4.08 (3.80-5.40) m/uL Hgb 13.0 (11.4-16.0) gm/dL Hct 39.1 (34.0-46.0) % MCV 95.9 (80.0-100.0) fL MCH 32.0 (25.0-35.0) pg MCHC 33.3 (31.0-37.0) g/dL RDW 13.3 (11.5-15.5) % Plt Count 299 (150-450) k/uL MPV 8.8 Neutrophils % 69 % Lymphocytes % 23 % Monocytes % 4 % Eosinophils % 2 % Basophils % 0 % Neutrophils # 9.7 H (1.3-7.7) k/uL Lymphocytes # 3.2 (1.0-4.8) k/uL Monocytes # 0.6 (0-1.0) k/uL Eosinophils # 0.2 (0-0.7) k/uL Basophils # 0.0 (0-0.2) k/uL Sodium 137 (137-145) mmol/L Potassium 4.9 (3.5-5.1) mmol/L Chloride 105 (98-107) mmol/L Carbon Dioxide 24 (22-30) mmol/L Anion Gap 8 mmol/L BUN 22 H (7-17) mg/dL Creatinine 1.03 (0.52-1.04) mg/dL Est GFR (CKD-EPI)AfAm 80 (>60 ml/min/1.73 sqM) Est GFR (CKD-EPI)NonAf 69 (>60 ml/min/1.73 sqM) Glucose 91 (74-99) mg/dL Plasma Lactic Acid Amarjit 1.7 (0.7-2.0) mmol/L Calcium 9.1 (8.4-10.2) mg/dL Total Bilirubin 0.6 (0.2-1.3) mg/dL AST 28 (14-36) U/L ALT 29 (4-34) U/L Alkaline Phosphatase 77 (38-126) U/L Total Protein 7.7 (6.3-8.2) g/dL Albumin 4.4 (3.5-5.0) g/dL Disposition Clinical Impression: Wound dehiscence Disposition: HOME SELF-CARE Condition: Good Instructions (If sedation given, give patient instructions): Wound Dehiscence (ED) Additional Instructions: Follow-up with Dr. Cervantes in the office in one week. Take medication as prescribed. Report back to ER with any new or worsening symptoms. Prescriptions: cefaDROXiL [Duricef] 500 mg PO Q12HR 10 Days #20 cap Is patient prescribed a controlled substance at d/c from ED?: No Referrals: Rachelle Wray MD [Primary Care Provider] - 1-2 days Keyur Cervantes DO [Doctor of Osteopathic Medicine] - 02/18/23 Time of Disposition: 17:32
[2023-02-11 16:07] VITALS: TEMP 97.4
[2023-02-11 17:09] LABS: Basophils % (A) 0 %; Eosinophils # (A) 0.2 k/uL (0-0.7); Eosinophils % (A) 2 %; HCT 39.1 % (34.0-46.0); Lymphocytes # (A) 3.2 k/uL (1.0-4.8); Lymphocytes % (A) 23 %; MCHC 33.3 g/dL (31.0-37.0); MCV 95.9 fL (80.0-100.0); Mean Platelet Volume 8.8; Monocytes # (A) 0.6 k/uL (0-1.0); Monocytes % (A) 4 %; Neutrophils # (A) 9.7 k/uL (1.3-7.7); Neutrophils % (A) 69 %; Platelet Count 299 k/uL (150-450); RBC 4.08 m/uL (3.80-5.40); RDW 13.3 % (11.5-15.5)
[2023-02-11 17:23] LABS: ALT 29 U/L (4-34); AST 28 U/L (14-36); African American GFR (CKD) 80 (>60 ml/min/1.73 sqM); Albumin 4.4 g/dL (3.5-5.0); Alkaline Phosphatase 77 U/L (38-126); Anion Gap 8 mmol/L; Blood Urea Nitrogen 22 mg/dL (7-17); Calcium 9.1 mg/dL (8.4-10.2); Carbon Dioxide 24 mmol/L (22-30); Chloride 105 mmol/L (98-107); Glucose 91 mg/dL (74-99); Non-African American GFR(CKD) 69 (>60 ml/min/1.73 sqM); Sodium 137 mmol/L (137-145); Total Bilirubin 0.6 mg/dL (0.2-1.3); Total Protein 7.7 g/dL (6.3-8.2)
[2023-02-11 17:28] LABS: Potassium 4.9 mmol/L (3.5-5.1)
[2023-02-11] MEDS ORDERED: CEPHALEXIN 500 MG CAP PO STA (17:43)
[2023-02-11 18:53] VITALS: BP 124/78; PULSE 78; RESP 18
== END 2023-02-11 18:52 | disposition home or self-care (01) ==
LOC: EC 15:55
DX: T81.31XA Disruption of external operation (surgical) wound, not elsewhere classified, initial encounter (principal); Z91.040 Latex allergy status; Z88.8 Allergy status to other drugs, medicaments and biological substances
CPT/HCPCS: 36415; 80053; 83605; 85025; 99283

== ENCOUNTER 2023-02-12 11:50 | Inpatient (IN) | payer MEDICARE, OTHER ==
--- NOTE | 2023-02-12 12:07 | ED ---
General Adult HPI - General Source: patient, RN notes reviewed Mode of arrival: wheelchair Limitations: no limitations <Katie Ceja - Last Filed: 02/12/23 12:07> - General Source: RN notes reviewed, old records reviewed Mode of arrival: wheelchair Limitations: no limitations - History of Present Illness -: minutes(s) Location: head Radiation: non-radiation Severity scale (1-10): 3 Consistency: constant Improves with: none Worsens with: none Associated Symptoms: denies other symptoms Treatments Prior to Arrival: none <Rod Cantu - Last Filed: 02/13/23 16:47> - General Stated complaint: pre op comp Time Seen by Provider: 02/12/23 12:07 - History of Present Illness Initial comments: Patient is a 37-year-old female who presents the emergency department for postop complicatiom. Patient had left microdiscetomy on 02/[address] Cervantes. She was evaluated yesterday in the emergency department for drainage from the wound she was placed on antibiotics. Patient reports increased drainage and pain with headache. States she spoke with Dr. Cervantes who told her to come in (Katie Ceja) This is a 37 female to the emergency department for evaluation of possible wound dehiscence. Patient has significant drainage from incision lower back for microdiscectomy. Patient has severe headache. (Rod Cantu) - Related Data Home Medications Medication Instructions Recorded Confirmed Baclofen [Lioresal] 10 mg PO TID PRN 01/25/23 02/12/23 Previous Rx's Medication Instructions Recorded Omeprazole 40 mg PO DAILY #24 cap 12/25/22 Metoclopramide [Reglan] 10 mg PO ACHS #20 tab 01/26/23 Acetaminophen-Codeine 300-30mg 1 tab PO Q6H PRN 7 Days #28 tablet 01/27/23 [Tylenol w/codeine #3] Pregabalin [Lyrica] 150 mg PO BID #30 capsule 01/27/23 cefaDROXiL [Duricef] 500 mg PO Q12HR 10 Days #20 cap 02/11/23 Allergies Allergy/AdvReac Type Severity Reaction Status Date / Time latex Allergy Rash/Hives Verified 02/12/23 16:32 tramadol AdvReac Abdominal Verified 02/12/23 16:32 Pain & Hallucinations Review of Systems ROS Other: All systems not noted in ROS Statement are negative. <Katie Ceja - Last Filed: 02/12/23 12:07> ROS Other: All systems not noted in ROS Statement are negative. <Rod Cantu - Last Filed: 02/13/23 16:47> ROS Statement: Those systems with pertinent positive or pertinent negative responses have been documented in the HPI. Past Medical History Past Medical History: GERD/Reflux Additional Past Medical History / Comment(s): CHRONIC LOW BACK PAIN History of Any Multi-Drug Resistant Organisms: MRSA Date of last positivie culture/infection: 2010 MDRO Source:: unknown Past Surgical History: Section, Cholecystectomy, Orthopedic Surgery Additional Past Surgical History / Comment(s): Pain clinic procedure, R ankle surgery/hardware, nasal surgery, right leg surgery/hardware x3 Past Anesthesia/Blood Transfusion Reactions: No Reported Reaction Additional Past Anesthesia/Blood Transfusion Reaction / Comment(s): Pt has never received blood. Past Psychological History: No Psychological Hx Reported Smoking Status: Former smoker Past Alcohol Use History: None Reported Past Drug Use History: None Reported - Past Family History Mother Family Medical History: Liver Disease Additional Family Medical History / Comment(s): Father Family Medical History: Hypertension <Katie Ceja - Last Filed: 02/12/23 12:07> General Exam Limitations: no limitations <Katie Ceja - Last Filed: 02/12/23 12:07> General appearance: alert, in no apparent distress Head exam: Present: atraumatic, normocephalic, normal inspection Eye exam: Present: normal appearance, PERRL, EOMI. Absent: scleral icterus, conjunctival injection, periorbital swelling ENT exam: Present: normal exam, mucous membranes moist Neck exam: Present: normal inspection. Absent: tenderness, meningismus, lymphadenopathy Respiratory exam: Present: normal lung sounds bilaterally. Absent: respiratory distress, wheezes, rales, rhonchi, stridor Cardiovascular Exam: Present: regular rate, normal rhythm, normal heart sounds. Absent: systolic murmur, diastolic murmur, rubs, gallop, clicks GI/Abdominal exam: Present: soft, normal bowel sounds. Absent: distended, tenderness, guarding, rebound, rigid Extremities exam: Present: normal inspection, full ROM, normal capillary refill. Absent: tenderness, pedal edema, joint swelling, calf tenderness Back exam: Present: normal inspection Neurological exam: Present: alert, oriented X3, CN II-XII intact Psychiatric exam: Present: normal affect, normal mood Skin exam: Present: warm, dry, intact, normal color. Absent: rash <Rod Cantu - Last Filed: 02/13/23 16:47> - General Exam Comments Initial Comments: Visual Physical Exam Vital signs reviewed General: Well-appearing, nontoxic, no acute distress. Head: Normocephalic, atraumatic Eyes: PERRLA, EOMI ENT: Airway patent Chest: Nonlabored breathing Skin: No visual rash, normal skin tone Neuro: Alert and oriented 3 Musculoskeletal: No gross abnormalities (Katie Ceja) Course <Rod Cantu - Last Filed: 02/13/23 16:47> Vital Signs 02/12/23 02/12/23 02/12/23 12:03 14:47 15:30 Temperature 99.0 F 99.1 F Pulse Rate 76 64 64 Respiratory 18 18 Rate Blood Pressure 125/82 102/71 103/65 O2 Sat by Pulse 100 98 98 Oximetry 02/12/23 16:00 Temperature Pulse Rate 68 Respiratory 18 Rate Blood Pressure 103/67 O2 Sat by Pulse 97 Oximetry - Reevaluation(s) Reevaluation #1: Medical record is reviewed (Rod Cantu) Reevaluation #2: Patient's pain is improved (Rod Cantu) Reevaluation #3: Patient informed results and questions answered (Rod Cantu) Reevaluation #4: Was pt. sent in by a medical professional or institution (, PA, ELECTRO WINNING OPERATOR, urgent care, hospital, or fpc...) When possible be specific @ -no Did you speak to anyone other than the patient for history (EMS, parent, family, police, friend...)? What history was obtained from this source @ -no Did you review nursing and triage notes (agree or disagree)? Why? @ -agree Are old charts reviewed (outside hosp., previous admission, EMS record, old EKG, old radiological studies, urgent care reports/EKG's, fpc records)? Report findings @ -yes Differential Diagnosis (chest pain, altered mental status, abdominal pain women, abdominal pain men, vaginal bleeding, weakness, fever, dyspnea, syncope, headache, dizziness, GI bleed, back pain, seizure, CVA, palpatations, mental health, musculoskeletal)? @ -prior EKG interpreted by me (3pts min.). @ -no X-rays interpreted by me (1pt min.). @ -no CT interpreted by me (1pt min.). @ -no U/S interpreted by me (1pt. min.). @ -no What testing was considered but not performed or refused? (CT, X-rays, U/S, labs)? Why? @ -none What meds were considered but not given or refused? Why? @ -none Did you discuss the management of the patient with other professionals (professionals i.e. , PA, ELECTRO WINNING OPERATOR, lab, RT, psych nurse, social media job titles, lpc, teacher, flight radio officer, top case assembler)? Give summary @ -no Was smoking cessation discussed for >3mins.? @ -no Was critical care preformed (if so, how long)? @ -no Were there social determinants of health that impacted care today? How? (Homelessness, low income, unemployed, alcoholism, drug addiction, transportation, low edu. Level, literacy, decrease access to med. care, penitentiary, rehab)? @ -none Was there de-escalation of care discussed even if they declined (Discuss DNR or withdrawal of care, Hospice)? DNR status @ -no What co-morbidities impacted this encounter? (DM, HTN, Smoking, COPD, CAD, Ca ncer, CVA, ARF, Chemo, Hep., AIDS, mental health diagnosis, sleep apnea, morbid obesity)? @ -none Was patient admitted / discharged? Hospital course, mention meds given and route, prescriptions, significant lab abnormalities, going to OR and other pertinent info. @ - 37 female to the emergency department today for second ER visit for persistent leakage from surgical wound lumbar surgery with Dr. Cervantes. Patient will be admitted for wound dehiscence reevaluation of surgical site Admitted Undiagnosed new problem with uncertain prognosis? @ -no Drug Therapy requiring intensive monitoring for toxicity (Heparin, Nitro, Insulin, Cardizem)? @ -no Were any procedures done? @ -no Diagnosis/symptom? @ -Postoperative wound dehiscence, pain, headache Acute, or Chronic, or Acute on Chronic? @ -Acute Uncomplicated (without systemic symptoms) or Complicated (systemic symptoms)? @ -Complicated Side effects of treatment? @ -no Exacerbation, Progression, or Severe Exacerbation? @ -exacerbation Poses a threat to life or bodily function? How? (Chest pain, [place], [place], pneumonia, PE, COPD, DKA, ARF, appy, cholecystitis, CVA, Diverticulitis, Homicidal, Suicidal, threat to staff... and all critical care pts) @ -yes severe postoperative complication (Rod Cantu) - Consultations Consultation #1: Spoke with orthopedics, they will evaluate this patient admit this patient at the patient Regarding for evaluation and exploration surgically (Rod Cantu) Medical Decision Making <Katie Ceja - Last Filed: 02/12/23 12:07> - Lab Data Result diagrams: 02/13/23 06:08 02/13/23 06:08 <Rod Cantu - Last Filed: 02/13/23 16:47> - Medical Decision Making I performed the QuickNote portion of this chart - Katie Ceja PA-C (Katie Ceja) 37 female to the emergency department today for second ER visit for persistent leakage from surgical wound lumbar surgery with Dr. Cervantes. Patient will be admitted for wound dehiscence reevaluation of surgical site (Rod Cantu) - Lab Data Lab Results 02/12/23 02/12/23 02/12/23 Range/Units 12:57 12:57 12:57 WBC 17.6 H (3.8-10.6) k/uL RBC 4.21 (3.80-5.40) m/uL Hgb 13.5 (11.4-16.0) gm/dL Hct 40.2 (34.0-46.0) % MCV 95.3 (80.0-100.0) fL MCH 32.0 (25.0-35.0) pg MCHC 33.6 (31.0-37.0) g/dL RDW 13.0 (11.5-15.5) % Plt Count 324 (150-450) k/uL MPV 7.7 Neutrophils % 85 % Lymphocytes % 9 % Monocytes % 5 % Eosinophils % 0 % Basophils % 0 % Neutrophils # 14.9 H (1.3-7.7) k/uL Lymphocytes # 1.6 (1.0-4.8) k/uL Monocytes # 0.8 (0-1.0) k/uL Eosinophils # 0.1 (0-0.7) k/uL Basophils # 0.0 (0-0.2) k/uL Sodium 137 (137-145) mmol/L Potassium 4.0 (3.5-5.1) mmol/L Chloride 102 (98-107) mmol/L Carbon Dioxide 24 (22-30) mmol/L Anion Gap 11 mmol/L BUN 16 (7-17) mg/dL Creatinine 1.02 (0.52-1.04) mg/dL Est GFR (CKD-EPI)AfAm 81 (>60 ml/min/1.73 sqM) Est GFR (CKD-EPI)NonAf 70 (>60 ml/min/1.73 sqM) Glucose 113 H (74-99) mg/dL Plasma Lactic Acid Amarjit 1.3 (0.7-2.0) mmol/L Calcium 9.3 (8.4-10.2) mg/dL Total Bilirubin 0.7 (0.2-1.3) mg/dL AST 39 H (14-36) U/L ALT 48 H (4-34) U/L Alkaline Phosphatase 71 (38-126) U/L Total Protein 7.3 (6.3-8.2) g/dL Albumin 4.1 (3.5-5.0) g/dL HCG, Qual 02/12/23 Range/Units 12:57 WBC (3.8-10.6) k/uL RBC (3.80-5.40) m/uL Hgb (11.4-16.0) gm/dL Hct (34.0-46.0) % MCV (80.0-100.0) fL MCH (25.0-35.0) pg MCHC (31.0-37.0) g/dL RDW (11.5-15.5) % Plt Count (150-450) k/uL MPV Neutrophils % % Lymphocytes % % Monocytes % % Eosinophils % % Basophils % % Neutrophils # (1.3-7.7) k/uL Lymphocytes # (1.0-4.8) k/uL Monocytes # (0-1.0) k/uL Eosinophils # (0-0.7) k/uL Basophils # (0-0.2) k/uL Sodium (137-145) mmol/L Potassium (3.5-5.1) mmol/L Chloride (98-107) mmol/L Carbon Dioxide (22-30) mmol/L Anion Gap mmol/L BUN (7-17) mg/dL Creatinine (0.52-1.04) mg/dL Est GFR (CKD-EPI)AfAm (>60 ml/min/1.73 sqM) Est GFR (CKD-EPI)NonAf (>60 ml/min/1.73 sqM) Glucose (74-99) mg/dL Plasma Lactic Acid Amarjit (0.7-2.0) mmol/L Calcium (8.4-10.2) mg/dL Total Bilirubin (0.2-1.3) mg/dL AST (14-36) U/L ALT (4-34) U/L Alkaline Phosphatase (38-126) U/L Total Protein (6.3-8.2) g/dL Albumin (3.5-5.0) g/dL HCG, Qual Not Detected Disposition <Katie Ceja - Last Filed: 02/12/23 12:07> Is patient prescribed a controlled substance at d/c from ED?: No Time of Disposition: 16:00 <Rod Cantu - Last Filed: 02/13/23 16:47> Clinical Impression: Wound dehiscence, Postoperative pain, Headache Dis[facility] Condition: Serious
[2023-02-12] MEDS ORDERED: ONDANSETRON 4 MG/2 ML VIAL IVP STA (13:16)
[2023-02-12 13:17] LABS: Basophils % (A) 0 %; Eosinophils # (A) 0.1 k/uL (0-0.7); Eosinophils % (A) 0 %; HCT 40.2 % (34.0-46.0); HGB 13.5 gm/dL (11.4-16.0); Lymphocytes # (A) 1.6 k/uL (1.0-4.8); Lymphocytes % (A) 9 %; MCHC 33.6 g/dL (31.0-37.0); MCV 95.3 fL (80.0-100.0); Mean Platelet Volume 7.7; Monocytes # (A) 0.8 k/uL (0-1.0); Monocytes % (A) 5 %; Neutrophils # (A) 14.9 k/uL (1.3-7.7); Neutrophils % (A) 85 %; Platelet Count 324 k/uL (150-450); RBC 4.21 m/uL (3.80-5.40); WBC 17.6 k/uL (3.8-10.6)
[2023-02-12 13:34] LABS: ALT 48 U/L (4-34); AST 39 U/L (14-36); African American GFR (CKD) 81 (>60 ml/min/1.73 sqM); Albumin 4.1 g/dL (3.5-5.0); Alkaline Phosphatase 71 U/L (38-126); Anion Gap 11 mmol/L; Blood Urea Nitrogen 16 mg/dL (7-17); Calcium 9.3 mg/dL (8.4-10.2); Carbon Dioxide 24 mmol/L (22-30); Chloride 102 mmol/L (98-107); Glucose 113 mg/dL (74-99); Non-African American GFR(CKD) 70 (>60 ml/min/1.73 sqM); Sodium 137 mmol/L (137-145); Total Bilirubin 0.7 mg/dL (0.2-1.3); Total Protein 7.3 g/dL (6.3-8.2)
[2023-02-12] MEDS ORDERED: MORPHINE SULFATE 4 MG/ML SYRINGE IVP STA ×2 (15:28→15:29)
[2023-02-12] MEDS ORDERED: diphenhydrAMINE 50 MG/ML 1 ML VIAL IVP STA (15:28)
[2023-02-12] MEDS ORDERED: NALOXONE 0.4 MG/ML 1 ML VIAL IV PRN (16:10)
[2023-02-12] MEDS ORDERED: MORPHINE SULFATE 4 MG/ML SYRINGE IV PRN (16:10)
[2023-02-12] MEDS ORDERED: LACTATED RINGERS 1,000 ML IV ONE (17:00)
--- NOTE | 2023-02-12 17:03 | P.HPOR ---
History of Present Illness H&P Date: 02/12/23 Chief Complaint: Wound dehiscence s/p Microdisc 37-year-old female presents to the emergency department after 2 weeks ago has undergoing a left microdiscectomy this is very uneventful she is done well with that. She saw me in the office then and had her kurt removed. Over the past 2 days however she states that she had a hug from her dad and now her back is been leaking clear fluid and she has had severe headaches while in an upright position. She states that the headaches are getting worse that she also is having increased drainage from her lumbar spine. She denies any perineal numbness or tingling states that her left lower extremity feels much better than it did however she with her headaches and everything she is feeling somewhat miserable. She denies any fevers chills shortness breath or chest pain at this time. She denies any vomiting nausea. Review of Systems 14 points review of systems completed and as stated in HPI, all other systems reviewed are negative. Past Medical History Past Medical History: GERD/Reflux Additional Past Medical History / Comment(s): CHRONIC LOW BACK PAIN History of Any Multi-Drug Resistant Organisms: MRSA Date of last positivie culture/infection: 2010 MDRO Source:: unknown Past Surgical History: Section, Cholecystectomy, Orthopedic Surgery Additional Past Surgical History / Comment(s): Pain clinic procedure, R ankle surgery/hardware, nasal surgery, right leg surgery/hardware x3 Past Anesthesia/Blood Transfusion Reactions: No Reported Reaction Additional Past Anesthesia/Blood Transfusion Reaction / Comment(s): Pt has never received blood. Past Psychological History: No Psychological Hx Reported Smoking Status: Former smoker Past Alcohol Use History: None Reported Past Drug Use History: None Reported - Past Family History Mother Family Medical History: Liver Disease Additional Family Medical History / Comment(s): Father Family Medical History: Hypertension Medications and Allergies Home Medications Medication Instructions Recorded Confirmed Type Omeprazole 40 mg PO DAILY #24 cap 12/25/22 02/12/23 Rx Baclofen [Lioresal] 10 mg PO TID PRN 01/25/23 02/12/23 History Metoclopramide [Reglan] 10 mg PO ACHS #20 tab 01/26/23 02/12/23 Rx Acetaminophen-Codeine 300-30mg 1 tab PO Q6H PRN 7 Days #28 tablet 01/27/23 02/12/23 Rx [Tylenol w/codeine #3] Pregabalin [Lyrica] 150 mg PO BID #30 capsule 01/27/23 02/12/23 Rx cefaDROXiL [Duricef] 500 mg PO Q12HR 10 Days #20 cap 02/11/23 02/12/23 Rx Allergies Allergy/AdvReac Type Severity Reaction Status Date / Time latex Allergy Rash/Hives Verified 02/12/23 16:32 tramadol AdvReac Abdominal Verified 02/12/23 16:32 Pain & Hallucinations Physical Examination Osteopathic Statement: *. No significant issues noted on an osteopathic structural exam other than those noted in the History and Physical/Consult. Physical Exam: -Patient is alert and oriented 3 appears well-nourished well-hydrated is in no acute distress. They do not appear septic. -There is Minimal tenderness to palpation around the incision incision is clean and dry however the distal end has dehisced near the buttock crack area and there is a clear fluid coming out of this. Patient has photophobia as well as headache when she sits up. -Upper extremities show [5] out of 5 strength in all major muscle groups. [##EXCEPT] -Lower extremities with [5] out of 5 strength in all major muscle groups [##EXCEPT] -There is [FROM] that is [painless] of the b/l UE and LE in all major joints. [log roll] [SLR] [EXCEPT] -They are intact to light touch sensation in C5 to T1 and L2 to S1 nerve distribution. -DTR [2]/4 all upper and lower extremities -Patient has palpable distal pulses all 4 ext -Compartments are soft and compressible. -Patient shows a negative Saige's [-Neg Hoffmans b/l] [-Neg Clonus b/l] [-Neg babinski b/l] Cranial nerves II through XII are grossly intact. Results - Labs Labs: Abnormal Lab Results - Last 24 Hours (Table) 02/12/23 02/12/23 Range/Units 12:57 12:57 WBC 17.6 H (3.8-10.6) k/uL Neutrophils # 14.9 H (1.3-7.7) k/uL Glucose 113 H (74-99) mg/dL AST 39 H (14-36) U/L ALT 48 H (4-34) U/L H & H 02/12/23 Range/Units 12:57 Hgb 13.5 (11.4-16.0) gm/dL Hct 40.2 (34.0-46.0) % Result Diagrams: 02/12/23 12:57 02/12/23 12:57 Assessment and Plan Assessment: 37-year-old female 2 weeks status post L4 5 left microdiscectomy with wound dehiscence and drainage severe headache positional possibly spinal Plan: Spine Surgery Clinical and Risk Review Kyleigh Ross is a 37 yo female presenting for evaluation of wound drainage s/p microdiscecomty with ALVARENGA and clear fluid drainage. It was my pleasure to have seen and examined Kyleigh Ross. In our visit today we have had a chance to go over subjective complaints, physical examination findings and treatments including the natural course history without intervention and various interventional options. The patients imaging was not completed by ED. On physical exam, Kyleigh Ross demonstrates wound drainage, clear fluid, ALVARENGA, photophobia. I have explained to the patient that as their condition progresses it will cause further neurological deficits and eventual paralysis. Based on the patients imaging, physical exam, and the rapid progression and disabling nature of their symptoms, at this time I recommend surgery in the form or a: Lumbar wound I&D with possible dural repair. I discussed the risk and benefits of this procedure at length with Kyleigh Ross. The patient and her sigificant other at bedside agreed to considered pursuing the procedure abovementioned. Prior to surgery, she should follow up with her PCP (Cardio, ID, IM etc) for clearance. Questions were invited and answered, and the patient wishes to proceed as outlined below. Currently, I am recommendin. Lumbar wound I&D with possible dural repair 2. Follow up with PCP for surgical clearance 3. Review of surgical risks and benefits as well as an educational packet on the proposed surgical procedure. Risks: All surgical procedures come with inherent risks, including those related to positioning, anesthesia, intraoperative findings, and postoperative complications. It is important to understand that surgery does not come with any guarantee of a successful outcome as complications and adverse events are always possible. The patient was given a handout in office today discussing the surgical procedure and risks associated with the intervention, both of which were discussed with the patient. These risks include but are not limited to the f ollowing: * Experiencing same, different or even worse symptoms in back, neck, arms, or legs compared to before surgery. * Requiring further surgery or other forms of treatment presently or at some time in the future at same or other levels of the intended spine surgery. * On an extreme but fortunately relatively rare basis severe complication such as blindness, stroke, heart attack, temporary and/or permanent nerve injury, paralysis, coma, or may occur, sometimes without known explanation. * Surgical complications may include but are not limited to risk of infection, fluid accumulation in the surgical dissection site, including a seroma or hematoma, that requires additional surgery, wound drainage, bleeding, new numbness or weakness, vision changes/loss, spinal fluid leakage, non-healing and/or infected incision, headaches, difficulty or inability to swallow, hoarseness, hemopneumothorax, pneumothorax, impotence, retrograde ejaculation, vaginal dryness; injury to nerves, spinal cord, blood vessels, lymphatics or other vital organs (i.e., bowel injury, injury to the great vessels); heterotopic bone formation; complications related to the hardware such as screws, rods, cages including misplaced hardware, device failure, instrumentation at the wrong spine level, hardware fracture/breakage, or hardware loosening; vertebral failure of the spinal column above or below the newly placed hardware; retained surgical instrumentations or devices and the need for further surgery. * Medical risks of the planned spine surgery include but are not limited to generalized Infections to the whole body or local areas outside of the surgical site (sepsis), heart attack, bleeding, anaphylaxis, meningitis, seizure, epilepsy, hearing loss, burn bernard, laceration of the head or other areas of the body, bruising, hypersensitivity of the skin, bladder over disten darnell; allergic reaction; shoulder injury related to positioning; fat, blood and air clots to other areas of the body like heart, lungs, brain; failure of internal organs such as lungs, kidneys, liver and excessive bleeding. If blood transfusions are necessary, note that transfusions may cause intolerance reactions such as anaphylaxis or other complex reactions. * Despite best efforts, the results of spine surgery might not heal in terms of bone, soft tissues such as skin, fascia, ligaments, and joints. Additionally, in order to achieve best possible results, spine surgery may be carried out be yond the initially planned levels and involve decompression, fusion including insertion of hardware at levels other than the original intended area of surgical interest change some portions of the procedure in order to ensure the best possible outcomes. * With spine surgery and spinal fusion, there are different off label uses of instrumentation (devices, implants and hardware) as well as biological substances (bone morphogenic proteins, demineralized bone matrix) as well as using extra bone from allograft sources (i.e. cadaver bone) or autograft (iliac crest bone, ribs, or the spine itself). The patient has been given information about these practices and their inherent risks and benefits. The patient has had a chance to review all the listed information, has been given print outs detailing this information, and has had all his/her questions answered to their satisfaction. It was my pleasure to have seen and examined Kyleigh Ross. In our visit today we have had a chance to go over my understanding of our patient's current condition, the natural course history without intervention and various interventional options. Questions were invited and answered, and the patient wishes to proceed as outlined above. I have seen and examined the patient for 25 minutes and we have spent more than 50% of the time in repeat and detailed counseling about the patient's condition, its natural course history with out and as much as can be predicted with surgery and re-review of various surgical treatment options. In conclusion, Kyleigh Ross and her significant other at bedside requested we proceed with the above suggested surgery and are willing to accept risks and limitations of the suggested surgery as nature of the disease process and our best attempts at treatment for the condition. Thank you again for allowing us to be part of your patient's care. Please don't hesitate to contact me if you have any further questions. Signed and authenticated by: Keyur Call [facility] [address] [facility], [address] [address]
[2023-02-12] MEDS ORDERED: PROPOFOL 10 MG/ML 20 ML VIAL IV ONE (17:49)
[2023-02-12] MEDS ORDERED: fentaNYL (PF) 50 MCG/ML 2 ML AMP ONE (17:49)
[2023-02-12] MEDS ORDERED: MIDAZOLAM 2 MG/2 ML VIAL ONE (17:49)
[2023-02-12] MEDS ORDERED: GLYCOPYRROLATE 0.2 MG/ML 2 ML VIAL ONE (17:49)
[2023-02-12] MEDS ORDERED: NEOSTIGMINE 1 MG/ML 10 ML VIAL ONE (17:49)
[2023-02-12] MEDS ORDERED: SUCCINYLCHOLINE CHLORIDE 200 MG/10 ML VIAL IV ONE (17:49)
[2023-02-12] MEDS ORDERED: LIDOCAINE 1% INJ 10MG/ML (20 ML MDV) ONE (17:49)
[2023-02-12] MEDS ORDERED: HYDROmorphone (PF) 1 MG/ML ONE (17:49)
[2023-02-12] MEDS ORDERED: ROCURONIUM 10 MG/ML (5 ML VIAL) IV ONE (17:49)
[2023-02-12] MEDS ORDERED: THROMBIN (BOVINE) 5,000 UNIT VIAL TOPICAL ONE (18:11)
[2023-02-12] MEDS ORDERED: GELATIN SPONGE,ABSORB (LARGE) 1 EACH SPONGE TOPICAL ONE (18:12)
--- NOTE | 2023-02-12 19:26 | FL ---
Intraoperative/procedural fluoroscopic services were provided. Total fluoroscopy time is 1.7 seconds with a total of 2 submitted images to PACS. Please see the operative/procedural note for further deta ils. DAP: 0.3283 Gycm2
[2023-02-12] MEDS ORDERED: CYCLOBENZAPRINE 5 MG TAB PO PRN (19:34)
[2023-02-12] MEDS ORDERED: MAGNESIUM HYDROXIDE 2,400 MG/30 ML CUP PO PRN (19:34)
[2023-02-12] MEDS ORDERED: HYDROcodone/APAP 5-325MG 1 EACH TAB PO PRN (19:34)
[2023-02-12] MEDS ORDERED: SENNOSIDES-DOCUSATE SODIUM 1 EACH TAB PO PRN (19:34)
--- NOTE | 2023-02-12 19:54 | P.OP ---
Date of Procedure: 02/12/23 Preoperative Diagnosis: 1. LUMBAR WOUND DEHISCENSE S/P L4-5 MICRODISCECOMTY 2. POSSIBLE CSF LEAK Postoperative Diagnosis: 1. LUMBAR WOUND DEHISCENSE S/P L4-5 MICRODISCECOMTY 2. CSF LEAK, SPONTANEOUS Procedure(s) Performed: 1. DURAL REPAIR WITH PTACH GRAFT REQUIRING LAMINECOMTY LUMBAR SPINE 2. IRRIGATION AND EXCISIONAL DEBRIDEMENT SKIN, SOFT TISSUE, MUSCLE AND BONE LUMBAR SPINE [id number] USING THE FOLLOWING: -SKIN KNIFE USED TO EXCISE THE TRACT AND NECROTIC SKIN, SOFT TISSUE, FAT AND MUSCLE -RONGURE USED TO EXCISE BONE -KERRISON USED TO WIDEN LAMINECTOMY AND REMOVE BONE 3. COMPLEX 3 LAYERED CLOSURE LUMBAR SPINE 6X6X10 CM 4. PLACEMENT OF COFLEX DEVICE INTERSPINOUS FOR STABILITY PURPOSES DUE TO DURAL PINCH ( /59) Implants: COFLEX 8 MM Anesthesia: GETA Surgeon: Keyur Crevantes Supervisor Machine Workers #1: Francisco Jones (CURTIS Kearns Was present and assisted with all aspects of the case from positioning to dressing placement) Estimated Blood Loss (ml): 100 IV fluids (ml): 1,500 Urine output (ml): 0 Pathology: none sent Condition: stable Disposition: PACU Indications for Procedure: Kyleigh Ross is a 37 yo female presenting for evaluation of wound drainage s/p microdiscecomty with ALVARENGA and clear fluid drainage. It was my pleasure to have seen and examined Kyleigh Ross. In our visit today we have had a chance to go over subjective complaints, physical examination findings and treatments including the natural course his tory without intervention and various interventional options. The patients imaging was not completed by ED. On physical exam, Kyleigh Ross demonstrates wound drainage, clear fluid, ALVARENGA, photophobia. I have explained to the patient that as their condition progresses it will cause further neurological deficits and eventual paralysis. Based on the patients imaging, physical exam, and the rapid progression and disabling nature of their symptoms, at this time I recommend surgery in the form or a: Lumbar wound I&D with possible dural repair. I discussed the risk and benefits of this procedure at length with Kyleigh Ross. The patient and her sigificant other at bedside agreed to considered pursuing the procedure abovementioned. Prior to surgery, she should follow up with her PCP (Cardio, ID, IM etc) for clearance. Questions were invited and answered, and the patient wishes to proceed as outlined below. Currently, I am recommendin. Lumbar wound I&D with possible dural repair Description of Procedure: The patient was seen and examined in the preoperative area. All preoperative protocols were followed. Informed consent was obtained risks and benefits of the procedure were discussed at length. Risks including bleeding infection damage to the surrounding tissue and risk of reoperation were discussed with the patient. Risk of anesthesia up to and including was a discussed with the patient. These are outlined in the risk review. They were willing to accept these risks and all of the risks of surgery. The patient was given a weight- based dose of antibiotics in the form of rOCEPHIN 2 G FROM THE er. The patient was seen and evaluated by the anesthesia team who deemed them fit for surgery. The site was marked, the patient was willing to proceed with the procedure. The patient was transferred to the operative suite by the Department of anesthesia. They were then drifted off to sleep by the department anesthesia and [anesthesia type] was performed. The patient tolerated this well. [Bunch catheter was placed by nursing staff, atraumatically]. Once confirmation of cristino es and ventilation the patient was transferred to a [prone Shiva table very carefully]. All bony prominences including wrists, elbows, axilla, chest, hips, and thighs, and feet were padded very well. Special attention was paid to the genitalia and these were padded accordingly. SCDs were placed on bilateral lower extremities and were connected. Arms were well padded and placed [on arm boards up and out in the 90/90 position]. Once in position, again we confirmed good ventilation capabilities and that lines were running appropriately. The patient's LUMBARspine was then exposed. 1010s were placed outlining the incision site. Standard alcohol was used to clean the incision site and allowed to dry. C-arm was used to biomark the patient and confirm level for incision which was marked with a skin marker. Operative briefing was performed with all teams and everyone in agreement to proceed. The patient was then prepped and draped in a normal sterile fashion. Timeout was then performed and all parties were in agreement with the procedure to be performed. Previous skin incision was excised elliptical with a skin knife and dissection taken through soft tissue to the facia which was identified, and still intact. There was clear fluid coming from beneath this. The sutures were all removed and skin and soft tissue was debrided. once facia was opened retractors were placed and the laminotomy was visualized. There was clear fluid coming from the central portion between the lamina of L4 and L5 midline. It was in this area that the dura appears to have been pinched between the lamina of L4 and L5 and there was a small punctate type lesion of the dura here. Kerrison rongure was used to widen laminectomy and remove more bone for good access. Interspinous ligament and bone was removed for access as well. Nerve hook was then used to reduce the rootlets back into the thecal sac. 6-0 prolene was then used to close the dura in a simple fashion. Once closed a valsalva to 40 mmHg was done and there was no leak. Fat patch was then harvested and sewed into placed over the dural lesion as a patch graft. We then assessed the other areas of the laminotomy and there were no other injuries evident. The space between L4 and L5 was, howevere very unstable and so it was elected at this time to give some stability with a small Coflex device. This was trialed and an 8mm Coflex was selected and impacted into place. Final flouro images confirmed good fit and good position with good distraction. The fins were crimped and itw as tested for stability with a Cielo and it was stable. We then copoiusly irrigated the wound with 6 L of NSS and abx irrigation. Tissea was then placed over the dura and patch graft. Surgicel was placed over this followed by another layer of Tisseal. Once it was completely sealed another Valsalva to 40 mmHg was done and there were no leaks evident. The wound was made to bleed slightly for further blood patch and then meticulous hemostasis performed. We then proceeded to layered closure. 3 layer complex closure was done first in the deep fascia with #1 PDS followed by a running #1 stratafix PDS. Deep tissue was closed with 0 PDS. Superficial subq was closed with 2-0 vicryl and skin was closed with 2-0 nylon in a horizontal mattress fashion. All edges approximated well. The wound was then cleaned with ETOH and dried and dressed with adaptic, 4x4, abd and foam tape. The patient was transferred back to their hospital bed atraumatically. [ Patient was then awakened and extubated by the department of anesthesia having tolerated the procedure very well with no complications. They were transferred to the postoperative care unit in stable condition. She will be kep lie flat HOB10 deg overnight until tomorrow AM.
[2023-02-12] MEDS ORDERED: BACLOFEN 10 MG TAB PO PRN (20:00)
[2023-02-12] MEDS ORDERED: HYDROmorphone 0.5 MG/0.5 ML SYRINGE IVP ONE (20:03)
[2023-02-12] MEDS: SODIUM CHLORIDE 0.9% 1,000 ML IV SCH (20:32)
[2023-02-12] MEDS: PREGABALIN 75 MG CAP PO SCH (22:04)
[2023-02-12] MEDS: HYDROmorphone 1 MG/ML 1 ML SYRINGE IVP PRN (23:06)
[2023-02-12] MEDS: ONDANSETRON 4 MG/2 ML VIAL IVP PRN (23:06)
[2023-02-12] MEDS: ACETAMINOPHEN TAB 325 MG TAB PO SCH (23:52)
[2023-02-13] MEDS: SODIUM CHLORIDE 0.9% 1,000 ML IV SCH ×2 (01:16→06:35)
[2023-02-13] MEDS: HYDROmorphone 1 MG/ML 1 ML SYRINGE IVP PRN ×5 (02:17→15:51)
[2023-02-13] MEDS: ACETAMINOPHEN TAB 325 MG TAB PO SCH ×3 (06:35→18:23)
[2023-02-13] MEDS: METOCLOPRAMIDE 10 MG TAB PO SCH ×4 (06:35→21:07)
[2023-02-13] MEDS: PANTOPRAZOLE 40 MG TABLET PO SCH (06:35)
[2023-02-13] MEDS: PREGABALIN 75 MG CAP PO SCH ×2 (08:46→21:07)
[2023-02-13] MEDS: ONDANSETRON 4 MG/2 ML VIAL IVP PRN ×2 (08:50→15:55)
--- NOTE | 2023-02-13 08:51 | P.PN ---
Subjective Progress Note Date: 02/13/23 Principal diagnosis: 1. LUMBAR WOUND DEHISCENSE S/P L4-5 MICRODISCECOMTY 2. CSF LEAK, SPONTANEOUS Patient was seen at bedside this morning lying supine. Dressing is in place ov er the lumbar spine. Patient says she is not having any headaches like she was prior to surgery yesterday. Patient says she is having some pain in the low back however, it is controlled with pain medication. Patient feels that she is having slight fever at this time. Patient denies any other issues at this time. Patient denies chest pain, nausea, vomiting, change in vision, loss of bowel/bladder control. Objective - Vital Signs Vital signs: Vital Signs Temp 98.2 F 02/13/23 01:30 Pulse 60 02/13/23 01:30 Resp 16 02/13/23 01:30 BP 112/68 02/13/23 01:30 Pulse Ox 99 02/13/23 01:30 FiO2 Intake & Output 02/12/23 02/13/23 02/13/23 18:59 06:59 18:59 Intake Total 100 0 Output Total 50 Balance 100 -50 Weight 97.522 kg 97.522 kg Intake: IV 100 0 Output: Estimated Blood Loss 50 - Exam Inspection: Foam tape and ABDs present over incision. Sutures appear to be well intact. Negative for any active drainage. Sensation: Equal, symmetric, bilaterally intact throughout the upper and lower extremities Palpation: Fair amount of tenderness to palpation directly over incision. Nontender to palpation throughout rest of exam Range of motion: Patient has full range of motion throughout bilateral upper extremity is on exam. There is some limited range of motion in the hips bilaterally secondary to referred pain from the low back. Full range of motion throughout rest of bilateral lower extremities on exam. Motor: 5/5 in all major motor groups in bilateral upper extremities. 4/5 in resisted bilateral hip flexion extension. 5/5 in all other major motor groups in bilateral lower extremities. Special tests: Negative Homans bilaterally. Negative clonus bilaterally. Negative Brandy bilaterally Neurovascular: Radial pulse intact, 2+ bilaterally. Cap refill under 3 seconds in digits of upper extremities. - Labs CBC & Chem 7: 02/12/23 12:57 02/12/23 12:57 Labs: Abnormal Lab Results - Last 24 Hours (Table) 02/12/23 02/12/23 Range/Units 12:57 12:57 WBC 17.6 H (3.8-10.6) k/uL Neutrophils # 14.9 H (1.3-7.7) k/uL Glucose 113 H (74-99) mg/dL AST 39 H (14-36) U/L ALT 48 H (4-34) U/L Assessment and Plan Assessment: 1. LUMBAR WOUND DEHISCENSE S/P L4-5 MICRODISCECOMTY 2. CSF LEAK, SPONTANEOUS Postoperative day 1 status post- DURAL REPAIR WITH PTACH GRAFT REQUIRING LAMINECOMTY LUMBAR SPINE Plan: 1. LUMBAR WOUND DEHISCENSE S/P L4-5 MICRODISCECOMTY; CSF LEAK, SPONTANEOUS - surgery performed yesterday, 02/12/2023ural repair with patch graft requiring laminectomy lumbar spine. Patient stable at bedside this morning l lynne in the supine position. Dressing is in place over lumbar spine. Maintain patient to 0/completely supine until 8 PM tonight. Okay to move head of bed up to 15 from supine beginning at 8 PM tonight. Pain medication as needed. We will continue to follow patient during her stay in hospital. 2. Appreciate medical management 3. Pain management - [place]; Flexeril; Tylenol 4. DVT prophylaxis - mechanical 5. GI prophylaxis - senna; milk of mag 6. PT/OT - patient to remain in bed completely supine all day today. Encouraged patient to plantar and dorsiflex ankles. 7. Encourage incentive spirometer use 8. Discharge planning - pending Time with Patient: Less than 30
[2023-02-13 09:47] LABS: Basophils # (A) 0.04 X 10*3/uL (0.00-0.10); Basophils % (A) 0.2 %; Eosinophils # (A) 0.01 X 10*3/uL (0.04-0.35); Eosinophils % (A) 0.1 %; HCT 33.9 % (37.2-46.3); HGB 11.3 d/dL (12.0-15.0); Lymphocytes # (A) 1.18 X 10*3/uL (0.90-5.00); MCH 31.4 pg (27.0-32.0); MCHC 33.3 d/dL (32.0-37.0); MCV 94.2 FL (80.0-97.0); Mean Platelet Volume 10.1 FL (9.5-12.2); Monocytes # (A) 1.25 X 10*3/uL (0.20-1.00); Monocytes % (A) 7.4 %; NRBC Per 100 WBC 0 X 10*3/uL (0.00-0.01); Neutrophils # (A) 14.33 X 10*3/uL (1.80-7.70); Neutrophils % (A) 84.9 %; Platelet Count 272 X 10*3/uL (140-440); RDW 13.2 % (11.5-14.5); WBC 16.87 X 10*3/uL (4.50-10.00)
[2023-02-13 09:49] LABS: Blood Urea Nitrogen 12.3 mg/dL (9.0-27.0); Calcium 8.5 mg/dL (8.7-10.3); Carbon Dioxide 23.4 mmol/L (21.6-31.8); Chloride 101 mmol/L (96-109); Glucose 116 mg/dL (70-110); Potassium 3.7 mmol/L (3.5-5.5); Sodium 138 mmol/L (135-145)
[2023-02-13] MEDS: HYDROcodone/APAP 10-325MG 1 EACH TAB PO PRN ×3 (10:57→18:20)
--- NOTE | 2023-02-13 11:02 | P.CONS ---
History of Present Illness - Reason for Consult Consult date: 02/13/23 - History of Present Illness Patient is a 37-year-old female with recent lumbar surgery complicated by spo ntaneous CSF leak presenting for revision. [facility] physicians has been consulted for medical management. Currently has some lumbar spine pain but denies any chest pain, shortness of breath, abdominal pain, nausea, vomiting, urinary or bowel complaints. Vital signs reviewed, temperature 97.8, pulse 51, respiratory rate 18, blood pressure 105/69, saturating at 100% on room air. WBC 16.7, hemoglobin 11.3, creatinine 1. Pertinent positives and negatives as discussed in HPI, a complete review of systems was performed and all other systems are negative. Patient seen and examined at bedside. Vital signs reviewed General: nontoxic, no distress, appears at stated age Derm: warm, dry, back dressing not observed Head: atraumatic, normocephalic, symmetric Eyes: EOMI, no lid lag, anicteric sclera, pupils equal round reactive to light ENT: Nose and ears atraumatic Neck: No thyromegaly, supple Mouth: no lip lesion, mucus membranes moist Cardiovascular: S1S2 reg, no murmur, no edema Lungs: clear to auscultation bilateral, no rhonchi, no rales, no wheeze, no accessory muscle use Abdominal: soft, nontender to palpation, no guarding, no appreciable organomegaly Ext: no gross muscle atrophy, muscle strength muscle strength 5 out of 5 in all 4 extremities, no contractures Neuro: CN II-XII grossly intact Psych: Alert, oriented, appropriate affect Assessment/Plan: Status post lumbar surgery Leukocytosis, reactive, anticipated outcome of surgery Mild acute blood loss anemia, anticipated outcome of surgery Obese, BMI 36.9 -Orthopedic surgery note reviewed, continue on Tylenol, baclofen as needed, Flexeril as needed, [place] as needed, IV Dilaudid as needed, Lyrica -On a bowel regimen -Patient able to eat and drink, discontinue IV fluids -SCDs ordered -Recommended outpatient weight loss program -No other chronic medical problems -Home medications reviewed Thank you for allowing us to participate in the care of this pleasant patient. Do not hesitate to contact us with questions. Someone can be reached from the [facility] hospitalist group all hours of the day at [phone] or via [employer]. Past Medical History Past Medical History: GERD/Reflux Additional Past Medical History / Comment(s): CHRONIC LOW BACK PAIN History of Any Multi-Drug Resistant Organisms: MRSA Year Discovered:: 2010 MDRO Source:: unknown Past Surgical History: Section, Cholecystectomy, Orthopedic Surgery Additional Past Surgical History / Comment(s): Pain clinic procedure, R ankle surgery/hardware, nasal surgery, right leg surgery/hardware x3 Past Anesthesia/Blood Transfusion Reactions: No Reported Reaction Additional Past Anesthesia/Blood Transfusion Reaction / Comm: Pt has never received blood. Past Psychological History: No Psychological Hx Reported Additional Psychological History / Comment(s): Pt resides with partner Smoking Status: Former smoker Past Alcohol Use History: None Reported Additional Past Alcohol Use History / Comment(s): Pt started smoking 2006 and quit in 2017 Past Drug Use History: None Reported Additional Drug Use History / Comment(s): Occasionally marijuana - Past Family History Mother Family Medical History: Liver Disease Additional Family Medical History / Comment(s): Father Family Medical History: Hypertension Medications and Allergies Home Medications Medication Instructions Recorded Confirmed Type Omeprazole 40 mg PO DAILY #24 cap 12/25/22 02/12/23 Rx Baclofen [Lioresal] 10 mg PO TID PRN 01/25/23 02/12/23 History Metoclopramide [Reglan] 10 mg PO ACHS #20 tab 01/26/23 02/12/23 Rx Acetaminophen-Codeine 300-30mg 1 tab PO Q6H PRN 7 Days #28 tablet 01/27/23 02/12/23 Rx [Tylenol w/codeine #3] Pregabalin [Lyrica] 150 mg PO BID #30 capsule 01/27/23 02/12/23 Rx cefaDROXiL [Duricef] 500 mg PO Q12HR 10 Days #20 cap 02/11/23 02/12/23 Rx Allergies Allergy/AdvReac Type Severity Reaction Status Date / Time latex Allergy Rash/Hives Verified 02/12/23 16:32 tramadol AdvReac Abdominal Verified 02/12/23 16:32 Pain & Hallucinations Physical Exam Vitals: Vital Signs Temp Pulse Pulse Resp BP BP Pulse Ox 02/13/23 07:58 97.8 F 51 L 18 105/69 100 02/13/23 01:30 98.2 F 60 16 112/68 99 02/12/23 22:09 60 127/74 97 02/12/23 21:54 64 123/76 96 02/12/23 21:39 59 L 127/73 97 02/12/23 21:24 59 L 124/71 97 02/12/23 21:09 64 123/74 97 02/12/23 20:54 64 122/74 96 02/12/23 20:39 64 123/76 96 02/12/23 20:25 99.2 F 64 18 117/71 97 02/12/23 20:09 65 15 135/64 96 02/12/23 19:54 72 18 140/65 97 02/12/23 19:39 97 F L 89 16 136/66 97 02/12/23 16:41 99 F 68 16 94/57 97 02/12/23 16:00 68 18 103/67 97 02/12/23 15:30 64 18 103/65 98 02/12/23 14:47 99.1 F 64 102/71 98 02/12/23 12:03 99.0 F 76 18 125/82 100 Intake and Output 02/12/23 02/13/23 02/13/23 22:59 06:59 14:59 Intake Total 100 Output Total 50 Balance 50 Intake: IV 100 Output: Estimated Blood Loss 50 Other: Weight 97.522 kg Results CBC & Chem 7: 02/13/23 06:08 02/13/23 06:08 Labs: Abnormal Lab Results - Last 24 Hours (Table) 02/12/23 02/12/23 02/13/23 Range/Units 12:57 12:57 06:08 WBC 17.6 H 16.87 H (3.8-10.6) k/uL RBC 3.60 L (4.10-5.20) X 10*6/uL Hgb 11.3 L (12.0-15.0) d/dL Hct 33.9 L (37.2-46.3) % Neutrophils # 14.9 H 14.33 H (1.3-7.7) k/uL Monocytes # 1.25 H (0.20-1.00) X 10*3/uL Eosinophils # 0.01 L (0.04-0.35) X 10*3/uL Anion Gap (4.00-12.00) mmol/L Glucose 113 H (74-99) mg/dL Calcium (8.7-10.3) mg/dL AST 39 H (14-36) U/L ALT 48 H (4-34) U/L 02/13/23 Range/Units 06:08 WBC (3.8-10.6) k/uL RBC (4.10-5.20) X 10*6/uL Hgb (12.0-15.0) d/dL Hct (37.2-46.3) % Neutrophils # (1.3-7.7) k/uL Monocytes # (0.20-1.00) X 10*3/uL Eosinophils # (0.04-0.35) X 10*3/uL Anion Gap 13.60 H (4.00-12.00) mmol/L Glucose 116 H (74-99) mg/dL Calcium 8.5 L (8.7-10.3) mg/dL AST (14-36) U/L ALT (4-34) U/L
[2023-02-13] MEDS: HYDROmorphone 0.5 MG/0.5 ML SYRINGE IVP PRN (21:13)
[2023-02-14] MEDS: ACETAMINOPHEN TAB 325 MG TAB PO SCH ×2 (00:31→05:47)
[2023-02-14] MEDS: METOCLOPRAMIDE 10 MG TAB PO SCH ×4 (05:47→19:53)
[2023-02-14] MEDS: HYDROmorphone 0.5 MG/0.5 ML SYRINGE IVP PRN ×4 (05:47→19:53)
[2023-02-14] MEDS: PANTOPRAZOLE 40 MG TABLET PO SCH (05:47)
[2023-02-14 07:07] LABS: Basophils % (A) 0 %; Eosinophils # (A) 0.2 k/uL (0-0.7); Eosinophils % (A) 2 %; HCT 33.4 % (34.0-46.0); HGB 11.2 gm/dL (11.4-16.0); Lymphocytes # (A) 1.6 k/uL (1.0-4.8); Lymphocytes % (A) 15 %; MCH 32.3 pg (25.0-35.0); MCHC 33.6 g/dL (31.0-37.0); MCV 96.3 fL (80.0-100.0); Mean Platelet Volume 7.4; Monocytes # (A) 0.8 k/uL (0-1.0); Monocytes % (A) 7 %; Neutrophils # (A) 8.2 k/uL (1.3-7.7); Neutrophils % (A) 74 %; Platelet Count 237 k/uL (150-450); RBC 3.47 m/uL (3.80-5.40); RDW 12.9 % (11.5-15.5); WBC 11.1 k/uL (3.8-10.6)
[2023-02-14 07:16] LABS: African American GFR (CKD) >90 (>60 ml/min/1.73 sqM); Anion Gap 6 mmol/L; Blood Urea Nitrogen 8 mg/dL (7-17); Calcium 8.3 mg/dL (8.4-10.2); Carbon Dioxide 24 mmol/L (22-30); Chloride 106 mmol/L (98-107); Glucose 104 mg/dL (74-99); Non-African American GFR(CKD) >90 (>60 ml/min/1.73 sqM); Potassium 3.6 mmol/L (3.5-5.1); Sodium 136 mmol/L (137-145)
[2023-02-14] MEDS ORDERED: ACETAMINOPHEN TAB 325 MG TAB PO PRN (07:43)
--- NOTE | 2023-02-14 07:50 | P.PN ---
Subjective Progress Note Date: 02/14/23 Principal diagnosis: 1. LUMBAR WOUND DEHISCENSE S/P L4-5 MICRODISCECOMTY 2. CSF LEAK, SPONTANEOUS Patient was seen at bedside this morning lying in the supine position. Patient says she is feeling much better this morning than she was yesterday morning. Patient does not complain of any headaches. Patient denies any fevers/chills. Patient mentions she is having some low back pain at this time. Patient denies any other pain. Patient denies chest pain, nausea, vomiting, change in vision, loss of bowel/bladder control. Objective - Vital Signs Vital signs: Vital Signs Temp 98.0 F 02/14/23 00:55 Pulse 76 02/14/23 00:55 Resp 18 02/14/23 00:55 BP 104/65 02/14/23 00:55 Pulse Ox 98 02/14/23 00:55 FiO2 Intake & Output 02/13/23 02/14/23 02/14/23 18:59 06:59 18:59 Output Total 1060 900 Balance -1060 -900 Output: Urine 1060 900 Other: Voiding Method External Catheter External Catheter # Voids 1 - Exam Inspection: Foam tape and ABDs present over incision. dressing removed. some saturation present. Sutures appear to be well intact. New dressing placed over incision. Negative for any active drainage. Sensation: Equal, symmetric, bilaterally intact throughout the upper and lower extremities Palpation: Fair amount of tenderness to palpation directly over incision. Nontender to palpation throughout rest of exam Range of motion: Patient has full range of motion throughout bilateral upper extremity is on exam. There is some limited range of motion in the hips bilaterally secondary to referred pain from the low back. Full range of motion throughout rest of bilateral lower extremities on exam. Motor: 5/5 in all major motor groups in bilateral upper extremities. 4/5 in resisted bilateral hip flexion extension. 5/5 in all other major motor groups in bilateral lower extremities. Special tests: Negative Homans bilaterally. Negative clonus bilaterally. Negative Brandy bilaterally Neurovascular: Radial pulse intact, 2+ bilaterally. Cap refill under 3 seconds in digits of upper extremities. - Labs CBC & Chem 7: 02/14/23 06:52 02/14/23 06:52 Labs: Abnormal Lab Results - Last 24 Hours (Table) 02/13/23 02/13/23 02/14/23 Range/Units 06:08 06:08 06:52 WBC 16.87 H 11.1 H (4.50-10.00) X 10*3/uL RBC 3.60 L 3.47 L (4.10-5.20) X 10*6/uL Hgb 11.3 L 11.2 L (12.0-15.0) d/dL Hct 33.9 L 33.4 L (37.2-46.3) % Neutrophils # 14.33 H 8.2 H (1.80-7.70) X 10*3/uL Monocytes # 1.25 H (0.20-1.00) X 10*3/uL Eosinophils # 0.01 L (0.04-0.35) X 10*3/uL Sodium (137-145) mmol/L Anion Gap 13.60 H (4.00-12.00) mmol/L Glucose 116 H (70-110) mg/dL Calcium 8.5 L (8.7-10.3) mg/dL 02/14/23 Range/Units 06:52 WBC (4.50-10.00) X 10*3/uL RBC (4.10-5.20) X 10*6/uL Hgb (12.0-15.0) d/dL Hct (37.2-46.3) % Neutrophils # (1.80-7.70) X 10*3/uL Monocytes # (0.20-1.00) X 10*3/uL Eosinophils # (0.04-0.35) X 10*3/uL Sodium 136 L (137-145) mmol/L Anion Gap (4.00-12.00) mmol/L Glucose 104 H (70-110) mg/dL Calcium 8.3 L (8.7-10.3) mg/dL Microbiology - Last 24 Hours (Table) 02/12/23 15:35 Blood Culture - Preliminary Blood 02/12/23 15:50 Blood Culture Gram Stain - Preliminary Blood Assessment and Plan Assessment: 1. LUMBAR WOUND DEHISCENSE S/P L4-5 MICRODISCECOMTY 2. CSF LEAK, SPONTANEOUS Postoperative day 2 status post- DURAL REPAIR WITH PTACH GRAFT REQUIRING LAMINECOMTY LUMBAR SPINE Plan: 1. LUMBAR WOUND DEHISCENSE S/P L4-5 MICRODISCECOMTY; CSF LEAK, SPONTANEOUS - sarah grady performed Wednesday, 3dural repair with patch graft requiring laminectomy lumbar spine. Patient stable at bedside this morning lying in the supine position. Dressing removed from lumbar spine. New dressing placed over incision. Begin gradually elevating bed today. We will continue to follow patient during exam hospital. 2. Appreciate medical management 3. Pain n management -Tylenol with codeine 4. DVT prophylaxis - mechanical 5. GI prophylaxis - senna; milk of mag 6. PT/OT - Begin gradually elevating bed today. Encouraged patient to plantar and dorsiflex ankles. 7. Encourage incentive spirometer use 8. Discharge planning - pending Time with Patient: Less than 30
[2023-02-14] MEDS: Acetaminophen-Codeine 300-30mg TAB PO PRN ×4 (08:11→21:59)
[2023-02-14] MEDS: PREGABALIN 75 MG CAP PO SCH ×2 (08:11→19:53)
--- NOTE | 2023-02-14 12:09 | P.PN ---
Subjective Progress Note Date: 02/14/23 Subjective: Seen and examined at bedside. No acute events overnight. Pertinent positives and negatives as discussed above, a complete review of systems was performed and all other systems are negative. Vitals Signs Reviewed. General: nontoxic, no distress, appears at stated age Derm: warm, dry, back dressing not observed Head: atraumatic, normocephalic, symmetric Eyes: EOMI, no lid lag, anicteric sclera Mouth: no lip lesion, mucus membranes moist Cardiovascular: S1S2 reg, no murmur Lungs: CTA bilateral, no rhonchi, no rales , no accessory muscle use Abdominal: soft, nontender to palpation, no guarding, no appreciable organomegaly Ext: no gross muscle atrophy, no edema, no contractures Neuro: CN II-XI grossly intact, no focal neuro deficits Psych: Alert, oriented, appropriate affect Data Reviewed Today: Pertinent Labs: WBC 11.1, hemoglobin 11.2, creatinine 0.79 Imaging: No new imaging Assessment and Plan: Status post lumbar surgery Leukocytosis, reactive, anticipated outcome of surgery Mild acute blood loss anemia, anticipated outcome of surgery Obese, BMI 36.9 Positive blood culture, gram-negative bacilli, suspected contaminant -Orthopedic surgery note reviewed, continue on Tylenol, baclofen as needed, Flexeril as needed, [place] as needed, IV Dilaudid as needed, Lyrica -On a bowel regimen -Recommended outpatient weight loss program -No other chronic medical problems -only 1/2 blood culture set positive for gram-negative bacilli, currently patient is on IV ceftriaxone -Repeat blood cultures ordered -Suspect this is likely a contaminant Thank you for allowing us to participate in the care of this pleasant patient. Do not hesitate to contact us with questions. Someone can be reached from the [facility] hospitalist group all hours of the day at [phone] or via [employer]. Objective - Vital Signs Vital signs: Vital Signs Temp 98.7 F 02/14/23 07:11 Pulse 52 L 02/14/23 07:11 Resp 18 02/14/23 07:11 BP 93/56 02/14/23 07:11 Pulse Ox 100 02/14/23 07:11 FiO2 Intake & Output 02/13/23 02/14/23 02/14/23 18:59 06:59 18:59 Output Total 1060 900 Balance -1060 -900 Output: Urine 1060 900 Other: Voiding Method External Catheter External Catheter External Catheter # Voids 1 - Labs CBC & Chem 7: 02/14/23 06:52 02/14/23 06:52 Labs: Abnormal Lab Results - Last 24 Hours (Table) 02/14/23 02/14/23 Range/Units 06:52 06:52 WBC 11.1 H (3.8-10.6) k/uL RBC 3.47 L (3.80-5.40) m/uL Hgb 11.2 L (11.4-16.0) gm/dL Hct 33.4 L (34.0-46.0) % Neutrophils # 8.2 H (1.3-7.7) k/uL Sodium 136 L (137-145) mmol/L Glucose 104 H (74-99) mg/dL Calcium 8.3 L (8.4-10.2) mg/dL Microbiology - Last 24 Hours (Table) 02/12/23 15:50 Blood Culture Gram Stain - Preliminary Blood Blood Culture - Preliminary Gram Neg Bacilli 02/12/23 15:35 Blood Culture - Preliminary Blood
[2023-02-14] MEDS: ONDANSETRON 4 MG/2 ML VIAL IVP PRN (16:28)
[2023-02-15] MEDS: PANTOPRAZOLE 40 MG TABLET PO SCH (06:19)
[2023-02-15] MEDS: METOCLOPRAMIDE 10 MG TAB PO SCH ×2 (06:19→12:50)
[2023-02-15] MEDS: HYDROmorphone 0.5 MG/0.5 ML SYRINGE IVP PRN (06:19)
[2023-02-15] MEDS: Acetaminophen-Codeine 300-30mg TAB PO PRN ×2 (08:39→14:42)
[2023-02-15] MEDS: PREGABALIN 75 MG CAP PO SCH (08:39)
--- NOTE | 2023-02-15 08:43 | P.PN ---
Subjective Progress Note Date: 02/15/23 Principal diagnosis: 1. LUMBAR WOUND DEHISCENSE S/P L4-5 MICRODISCECOMTY 2. CSF LEAK, SPONTANEOUS Patient was seen at bedside this morning lying semirecumbent position. Patient says she did do well yesterday and sat up at 90 in bed. Patient says she has not had any headaches/lightheadedness/nausea. Patient denies any fevers/chills. Patient mentions she is having some low back pain at this time. Patient says she is looking forward to possibly going home later today. Patient denies any other pain. Patient denies chest pain, nausea, vomiting, change in vision, loss of bowel/bladder control. Objective - Vital Signs Vital signs: Vital Signs Temp 99.0 F 02/15/23 06:56 Pulse 65 02/15/23 06:56 Resp 15 02/15/23 06:56 BP 118/62 02/15/23 06:56 Pulse Ox 100 02/15/23 06:56 FiO2 Intake & Output 02/14/23 02/15/23 02/15/23 18:59 06:59 18:59 Output Total 650 1100 Balance -650 -1100 Output: Urine 650 1100 Other: Voiding Method External Catheter External Catheter # Voids 1 - Exam Inspection: Foam tape and ABDs present over incision. Sutures appear to be intact. Negative for any active drainage. Sensation: Equal, symmetric, bilaterally intact throughout the upper and lower extremities Palpation: Fair amount of tenderness to palpation directly over incision. Nontender to palpation throughout rest of exam Range of motion: Patient has full range of motion throughout bilateral upper extremity is on exam. There is some limited range of motion in the hips bilaterally secondary to referred pain from the low back. Full range of motion throughout rest of bilateral lower extremities on exam. Motor: 5/5 in all major motor groups in bilateral upper extremities. 4/5 in resisted bilateral hip flexion extension. 5/5 in all other major motor groups in bilateral lower extremities. Special tests: Negative Homans bilaterally. Negative clonus bilaterally. Negative Brandy bilaterally Neurovascular: Radial pulse intact, 2+ bilaterally. Cap refill under 3 seconds in digits of upper extremities. - Labs CBC & Chem 7: 02/14/23 06:52 02/14/23 06:52 Labs: Microbiology - Last 24 Hours (Table) 02/12/23 15:35 Blood Culture - Preliminary Blood 02/12/23 15:50 Blood Culture Gram Stain - Preliminary Blood Blood Culture - Preliminary Gram Neg Bacilli Assessment and Plan Assessment: 1. LUMBAR WOUND DEHISCENSE S/P L4-5 MICRODISCECOMTY 2. CSF LEAK, SPONTANEOUS Postoperative day 3 status post- DURAL REPAIR WITH PTACH GRAFT REQUIRING LAMINECOMTY LUMBAR SPINE Plan: 1. LUMBAR WOUND DEHISCENSE S/P L4-5 MICRODISCECOMTY; CSF LEAK, SPONTANEOUS - surgery performed 02/12/2023ural repair with patch graft requiring laminectomy lumbar spine. Patient stable at bedside this morning lying in the supine position. Dressing over incision. Patient okay to get up and walk around the room/hallway. Possible discharge home later today. 2. Appreciate medical management 3. Pain n management -Tylenol with codeine 4. DVT prophylaxis - mechanical 5. GI prophylaxis - senna; milk of mag 6. PT/OT - weightbearing as tolerated 7. Encourage incentive spirometer use 8. Discharge planning - Possible discharge home later today. Time with Patient: Less than 30
--- NOTE | 2023-02-15 11:56 | P.PN ---
Subjective Progress Note Date: 02/15/23 Subjective: Seen and examined at bedside. No acute events overnight. Pertinent positives and negatives as discussed above, a complete review of systems was performed and all other systems are negative. Vitals Signs Reviewed. General: nontoxic, no distress, appears at stated age Derm: warm, dry, back dressing not observed Head: atraumatic, normocephalic, symmetric Eyes: EOMI, no lid lag, anicteric sclera Mouth: no lip lesion, mucus membranes moist Cardiovascular: S1S2 reg, no murmur Lungs: CTA bilateral, no rhonchi, no rales , no accessory muscle use Abdominal: soft, nontender to palpation, no guarding, no appreciable organomegaly Ext: no gross muscle atrophy, no edema, no contractures Neuro: CN II-XI grossly intact, no focal neuro deficits Psych: Alert, oriented, appropriate affect Data Reviewed Today: Pertinent Labs: Pending labs Imaging: No new imaging Assessment and Plan: Status post lumbar surgery Leukocytosis, reactive, anticipated outcome of surgery Mild acute blood loss anemia, anticipated outcome of surgery Obese, BMI 36.9 Positive blood culture, gram-negative bacilli, suspected contaminant -Orthopedic surgery note reviewed, continue on Tylenol, baclofen as needed, Flexeril as needed, [place] as needed, IV Dilaudid 0.5-1 mg as needed, Lyrica -On a bowel regimen -Recommended outpatient weight loss program -No other chronic medical problems -only 1/2 blood culture set positive for gram-negative bacilli, IV ceftriaxone discontinued -Repeat blood cultures drawn, results pending -Suspect this is likely a contaminant Thank you for allowing us to participate in the care of this pleasant patient. Do not hesitate to contact us with questions. Someone can be reached from the [facility] hospitalist group all hours of the day at [phone] or via [employer] Objective - Vital Signs Vital signs: Vital Signs Temp 99.0 F 02/15/23 06:56 Pulse 65 02/15/23 06:56 Resp 15 02/15/23 06:56 BP 118/62 02/15/23 06:56 Pulse Ox 100 02/15/23 06:56 FiO2 Intake & Output 02/14/23 02/15/23 02/15/23 18:59 06:59 18:59 Output Total 650 1100 Balance -650 -1100 Output: Urine 650 1100 Other: Voiding Method External Catheter External Catheter External Catheter # Voids 1 - Labs CBC & Chem 7: 02/14/23 06:52 02/14/23 06:52 Labs: Microbiology - Last 24 Hours (Table) 02/12/23 15:35 Blood Culture - Preliminary Blood 02/12/23 15:50 Blood Culture Gram Stain - Preliminary Blood Blood Culture - Preliminary Gram Neg Bacilli
--- NOTE | 2023-02-15 13:44 | P.DS ---
Providers Date of admission: 02/12/23 16:11 Expected date of discharge: 02/15/23 Attending physician: Keyur Cervantes DO Consults: 02/12/23 19:58 Consult Physician Routine Consulting Provider: Mila Esqueda Consult Reason/Comments: Medical management Do you want consulting provider notified?: Yes Primary care physician: Kamala Bush Hospital Course: Date of admission: 02/12/2023 Date of discharge: 02/15/2023 Admission diagnosis: 1. LUMBAR WOUND DEHISCENSE S/P L4-5 MICRODISCECOMTY 2. CSF LEAK, SPONTANEOUS Discharge diagnosis: Same Attending physician: Dr. 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 At this point patient has failed conservative treatment measures and has opted to proceed with a elective dural repair with patch graft requiring laminectomy. Hospital course: Details of patient's surgery can be found in operative report. Patient tolerated the procedure well and was subsequently transported to orthopedic floor. Patient's orthopeidc and medical care was provided daily. Patient had daily laboratory tests performed for evaluation of overall blood counts. Patient had daily physical therapy to include strengthening range of motion as well as education with walker ambulation. Patient was noted to have a relatively uneventful postoperative course. Patient reported satisfactory pain control with oral pain medications by postoperative day 3. Patient showed satisfactory progress with physical therapy. Patient moved steadily through the program and had no difficulty meeting the goals by postoperative day 3. Given patient's otherwise satisfactory course and having met physical therapy goals, plan is to discharge patient home on postoperative day 3. Discharge condition/disposition: Patient will be discharged home in stable condition. Discharge medications: Instructions are given on resumption of patient's normal daily medications per primary care recommendation, in addition patient will be prescribed Tylenol with Codeine; Flexeril; senna. Spine Discharge and Recovery Instructions Date of Surgery: 02/12/2023 Diagnosis: 1. LUMBAR WOUND DEHISCENSE S/P L4-5 MICRODISCECOMTY 2. CSF LEAK, SPONTANEOUS Procedure: DURAL REPAIR WITH PTACH GRAFT REQUIRING LAMINECOMTY LUMBAR SPINE Medications: See medication list All medication refills should be obtained through your primary care doctor or your clinic spine surgeon. Please discuss prescription refills at your follow up appointment. Do not call the hospital for medication refills. Dressing: Leave your dressing in place for a total of 5 days post operatively. Then you may remove your dressing and leave open to air. Keep the area clean and if not able to keep area clean, then cover with sterile gauze and tape. Showering: You may shower 3 days after your procedure allowing soap and water to run over incision. Do not scrub. Do not soak. Blot dry. Follow up: Please confirm a follow up appointment with your surgeon 3 weeks post operatively. Please make an appointment to follow up with your PCP in 1-2 weeks after surgery for evaluation 3 phase, 3-week plan POST OP WEEKS 1-3 1. Lifting/carrying/pushing/pulling limited to less than 5 pounds. 2. Do not sit for longer than 15 minutes at one time. Get up and walk around. Prolonged sitting is NOT advised. If you lay down, see if you can tolerate laying down on you front (belly side) 3. Walk for periods of 15 minutes = 1 mile but no longer; do it multiple times times each day. 4. Ice your low back after activity. POST OP WEEKS 3-6 1. Lifting limited to less than 20 pounds. 2. Do not sit for longer than 30 minutes at a time. Frequently change positions. Use a sit-to stand workstation or take frequent breaks from sitting if you have returned to work. 3. Walk for 30 minutes each day. If possible, do these three or more times a day POST OP WEEKS 6+ At your 6-week appointment we will give you a physical therapy referral to focus on a core stabilization and strengthening program. You should also work on leg & buttock strengthening, hamstring & quadriceps stretching, and continue a low impact aerobic activity program such as swimming, walking, or riding a stationary bicycle. During the initial 6 weeks after your surgery, you are at the highest risk of re-injuring your spine. You should generally avoid BLTs (bending, lifting and twisting combination motions) and follow the above guidelines to reduce the chance of reinjury. You can anticipate post op appointments in our office at approximately 3 weeks and 6 weeks after your surgery. INCISION CARE: If your incision is not draining you do NOT need to cover it with a dressing. Keep your incision clean, dry and intact. In most cases, we apply skin glue, kurt or sutures to the incision at the time of surgery. This will be like a crust or have the appearance of a scab and will fall off in time on its own. The stitches or kurt need to be removed at 3 weeks post op appointment. You may begin to shower 3 days after surgery (this allows the glue to moreno well). However, please avoid scrubbing the incision site or peeling off any of the skin glue. This will ensure optimal healing of your incision. Also, during this time avoid soaking the incision area in water - this includes swimming pools, hot tubs or baths. No ointments, lotions or oils on the incision until your surgeon allows. Leave kurt, sutures or glue in place. Neurological dysfunction that comes on suddenly can also be a sign of a stroke. Below some common symptoms of a stroke are listed: B - balance difficulty such as sudden onset walking or leaning to one side - NEW E - eye problem such as sudden double vision or trouble seeing on one side - NEW F - Facial weakness or numbness on one side - NEW A - Arm or leg weakness or numbness on one side - NEW S - Slurred speech or difficulty with word finding - NEW T - Time is BRAIN! Call 911 as soon as you recognize these symptoms Diet: Consume a regular diet rich in vegetables and lean protein such as chicken or fish. You should consume in a ratio of approximately 20% fats|40% carbohydrates|40%protein. Vegetables, sweet potatoes, brown rice or quinoa are examples of good carbohydrates. Chips, white bread, cookies and sweets/sugar are examples of bad carbohydrates. Limit your bad carbs, go wild with good carbs. "Life's Simple 7" Guidelines as per [place] [employer] These will help you reclaim your life after surgery and wall taper helper in your recovery, keeping in mind your restrictions. (1) Get Active. Physical activity can help people lose weight, control high blood pressure and cholesterol, feel emotionally better, and sleep better. (2) Control Cholesterol. Avoid a diet high in saturated fat, trans fat, & cholesterol. Limit whole milk & cream, ice cream, butter, egg yolks, processed meats (like sausage and hot dogs), and fatty meats. Choose healthy foods that are low in saturated fat, trans fat and cholesterol which include: Fruits and vegetables, fiber rich grain products (like whole grain pasta and brown rice), lean meat such as chicken, fish, nuts, seeds, and legumes. (3) Eat Better. Eat small portions. Shop at the grocery with a list and do not stray from it. Tips for a healthy diet include: Limit sodium intake to less than 1500mg daily, avoid prepackaged, processed, and fast foods, choose a diet rich in fruits, vegetables, and whole grain, high fiber foods, and limit saturated & cholesterol in your diet. (4) Manage Blood Pressure. If you have high blood pressure, you should have a cuff at home so that you can check your blood pressure regularly. Be sure you have a good cuff. An arm one is generally better than a wrist one. Bring the cuff to a doctor's appointment to validate that the measurements that your cuff are taking are accurate. Take your blood pressure twice daily when you are sitting down and relaxing. Record the numbers in a log and bring this log with you to your doctors' appointments. (5) Lose Weight if your BMI is above 25. A healthy BMI is between 19-25. To calculate Your BMI, you may use a Standard BMI Calculator on the NIH BMI website: <www.nhlbi.nih.gov/guidelines/obesity/BMI/bmicalc.htm>. Weigh oneself daily. If you are overweight, set a goal to lose weight. A pound a week loss if needed is a good target. (6) Reduce Blood Sugar. Limit foods and liquids with "added sugars." (Added sugars include sucrose, fructose, glucose, maltose, dextrose, high fructose corn syrup, corn syrup, concentrated fruit juice and honey). (7) Stop Smoking. If you smoke, quitting smoking is one of the best things that you can do for your health. Smoking increases your risk of heart attack, stroke, and peripheral vascular disease, which is a build-up of plaque in your arteries. Please discard all the cigarettes and lighters in your house. Have a plan for what you will do when you have the urge to smoke. Direct and second- hand smoke shortens your life as well as the lives of your family, friends and others around you. For your health and the health of those around you, please consider quitting! Proper Bending Body Mechanics: Maintain a wide stance with one foot slightly in front of the other. Keep your back straight. Bend utilizing the strength in your hips and knees. Do not bend at the waist. Maintain the lifted object at your waist-level close to your body. Avoid lifting weight that causes immediately pain or pain anywhere in the body afterwards. Smoking/Nicotine If there was ever one thing that you could do to increase your overall health, decrease your risk of cardiovascular problems by about 39% the second you make the choice, it is to STOP SMOKING. Your body's most instant gratification is the second you stop smoking. We have all heard the studies, read the articles but it is true, smoking is extremely bad for your overall health, and moreover it is detrimental to your bone health. Nicotine, IN ANY FORM, kills bone cells, prevents your body from healing fractures, and significantly prolongs healing after surgery. In spine surgery specifically, it increases your risk of not healing your bones to create a fusion and increases your risk of having a revision surgery due to this up to 60%. I know it is hard. I know it feels impossible. But there are ways. Take control of your life. We are here to help you through it. And when you are ready, ask us and we can direct you to help if you desire. Use the START Plan to Quit Smoking (please visit the [employer].org website listed below for more information): S = Set a quit date. Choose a date within the next 2 weeks, so you have enough time to prepare without losing your motivation to quit. If you mainly smoke at work, quit on the weekend, so you have a few days to adjust to the change. T = Tell family, friends, and co-workers that you plan to quit. Let your friends and family in on your plan to quit smoking and tell them you need their support and encouragement to stop. Look for a quit julian who wants to stop smoking as well. You can help each other get through the rough times. A = Anticipate and plan for the challenges you'll face while quitting. Most people who begin smoking again do so within the first 3 months. You can h elp yourself make it through by preparing ahead for common challenges, such as nicotine withdrawal and cigarette cravings. R = Remove cigarettes and other tobacco products from your home, car, and work. Throw away all your cigarettes (no emergency pack!), lighters, ashtrays, and matches. Wash your clothes and freshen up anything that smells like smoke. Shampoo your car, clean your drapes and carpet, and steam your furniture. T = Talk to your doctor about getting help to quit. Your doctor can prescribe medication to help with withdrawal and suggest other alternatives. If you can't see a doctor, you can get many products over the counter at your local pharmacy or grocery store, including the nicotine patch, nicotine lozenges, and nicotine gum. Resources for Quitting Smoking: <https://www.[place].gov/documents/[facility]/Quit_Tobacco_Resources_for_patients_313 480_7.pdf> Supplementation: Take recommended dosages of Vitamin D and Calcium to help fortify your bones and help them to heal. See your health maintenance packet for dosages and recommended levels. DVT/VTE prophylaxis: You will be given compression stockings from the hospital. Wear these daily for the first two weeks after surgery. You may take them off at night. You may be prescribed a medication to help thin your blood. Take this as directed. If you are not prescribed this medication, early and frequent ambulation has been shown to be the best prophylaxis to deep vein thrombosis and sequelae related to this event. Assessment: 1. LUMBAR WOUND DEHISCENSE S/P L4-5 MICRODISCECOMTY 2. CSF LEAK, SPONTANEOUS Procedures: 1. LUMBAR WOUND DEHISCENSE S/P L4-5 MICRODISCECOMTY 2. CSF LEAK, SPONTANEOUS Patient Condition at Discharge: Serious Plan - Discharge Summary Discharge Rx Participant: Yes New Discharge Prescriptions: New Cyclobenzaprine [Flexeril] 5 mg PO TID #21 tablet Acetaminophen-Codeine 300-30mg [Tylenol w/codeine #3] 1 tab PO Q6H PRN #28 tablet PRN Reason: Pain Sennosides/Docusate Sodium [Senna Plus 8.6-50 mg Softgel] 1 each PO DAILY #20 capsule No Action Baclofen [Lioresal] 10 mg PO TID PRN PRN Reason: Pain Metoclopramide [Reglan] 10 mg PO ACHS #20 tab Acetaminophen-Codeine 300-30mg [Tylenol w/codeine #3] 1 tab PO Q6H PRN 7 Days #28 tablet PRN Reason: Pain Omeprazole 40 mg PO DAILY #24 cap Pregabalin [Lyrica] 150 mg PO BID #30 capsule cefaDROXiL [Duricef] 500 mg PO Q12HR 10 Days #20 cap Discharge Medication List Omeprazole 40 mg PO DAILY #24 cap 12/25/22 [Rx] Baclofen [Lioresal] 10 mg PO TID PRN 01/25/23 [History] Metoclopramide [Reglan] 10 mg PO ACHS #20 tab 01/26/23 [Rx] Acetaminophen-Codeine 300-30mg [Tylenol w/codeine #3] 1 tab PO Q6H PRN 7 Days #28 tablet 01/27/23 [Rx] Pregabalin [Lyrica] 150 mg PO BID #30 capsule 01/27/23 [Rx] cefaDROXiL [Duricef] 500 mg PO Q12HR 10 Days #20 cap 02/11/23 [Rx] Acetaminophen-Codeine 300-30mg [Tylenol w/codeine #3] 1 tab PO Q6H PRN #28 tablet 02/15/23 [Rx] Cyclobenzaprine [Flexeril] 5 mg PO TID #21 tablet 02/15/23 [Rx] Sennosides/Docusate Sodium [Senna Plus 8.6-50 mg Softgel] 1 each PO DAILY #20 capsule 02/15/23 [Rx] Follow up Appointment(s)/Referral(s): Rachelle Wray MD [Primary Care Provider] - 1-2 days Keyur Cervantes DO [Doctor of Osteopathic Medicine] - 2 Weeks Activity/Diet/Wound Care/Special Instructions: Spine Discharge and Recovery Instructions Date of Surgery: 02/12/2023 Diagnosis: 1. LUMBAR WOUND DEHISCENSE S/P L4-5 MICRODISCECOMTY 2. CSF LEAK, SPONTANEOUS Procedure: DURAL REPAIR WITH PTACH GRAFT REQUIRING LAMINECOMTY LUMBAR SPINE Medications: See medication list All medication refills should be obtained through your primary care doctor or your clinic spine surgeon. Please discuss prescription refills at your follow up appointment. Do not call the hospital for medication refills. Dressing: Leave your dressing in place for a total of 5 days post operatively. Then you may remove your dressing and leave open to air. Keep the area clean and if not able to keep area clean, then cover with sterile gauze and tape. Showering: You may shower 3 days after your procedure allowing soap and water to run over incision. Do not scrub. Do not soak. Blot dry. Follow up: Please confirm a follow up appointment with your surgeon 3 weeks post operatively. Please make an appointment to follow up with your PCP in 1-2 weeks after surgery for evaluation 3 phase, 3-week plan POST OP WEEKS 1-3 1. Lifting/carrying/pushing/pulling limited to less than 5 pounds. 2. Do not sit for longer than 15 minutes at one time. Get up and walk around. Prolonged sitting is NOT advised. If you lay down, see if you can tolerate laying down on you front (belly side) 3. Walk for periods of 15 minutes = 1 mile but no longer; do it multiple times times each day. 4. Ice your low back after activity. POST OP WEEKS 3-6 1. Lifting limited to less than 20 pounds. 2. Do not sit for longer than 30 minutes at a time. Frequently change positions. Use a sit-to stand workstation or take frequent breaks from sitting if you have returned to work. 3. Walk for 30 minutes each day. If possible, do these three or more times a day POST OP WEEKS 6+ At your 6-week appointment we will give you a physical therapy referral to focus on a core stabilization and strengthening program. You should also work on leg & buttock strengthening, hamstring & quadriceps stretching, and continue a low impact aerobic activity program such as swimming, walking, or riding a stationary bicycle. During the initial 6 weeks after your surgery, you are at the highest risk of re-injuring your spine. You should generally avoid BLTs (bending, lifting and twisting combination motions) and follow the above guidelines to reduce the chance of reinjury. You can anticipate post op appointments in our office at approximately 3 weeks and 6 weeks after your surgery. INCISION CARE: If your incision is not draining you do NOT need to cover it with a dressing. Keep your incision clean, dry and intact. In most cases, we apply skin glue, kurt or sutures to the incision at the time of surgery. This will be like a crust or have the appearance of a scab and will fall off in time on its own. The stitches or kurt need to be removed at 3 weeks post op appointment. You may begin to shower 3 days after surgery (this allows the glue to moreno well). However, please avoid scrubbing the incision site or peeling off any of the skin glue. This will ensure optimal healing of your incision. Also, during this time avoid soaking the incision area in water - this includes swimming pools, hot tubs or baths. No ointments, lotions or oils on the incision until your surgeon allows. Leave kurt, sutures or glue in place. Neurological dysfunction that comes on suddenly can also be a sign of a stroke. Below some common symptoms of a stroke are listed: B - balance difficulty such as sudden onset walking or leaning to one side - NEW E - eye problem such as sudden double vision or trouble seeing on one side - NEW F - Facial weakness or numbness on one side - NEW A - Arm or leg weakness or numbness on one side - NEW S - Slurred speech or difficulty with word finding - NEW T - Time is BRAIN! Call 911 as soon as you recognize these symptoms Diet: Consume a regular diet rich in vegetables and lean protein such as chicken or fish. You should consume in a ratio of approximately 20% fats|40% carbohydrates|40%protein. Vegetables, sweet potatoes, brown rice or quinoa are examples of good carbohydrates. Chips, white bread, cookies and sweets/sugar are examples of bad carbohydrates. Limit your bad carbs, go wild with good carbs. "Life's Simple 7" Guidelines as per [place] [employer] These will help you reclaim your life after surgery and wall taper helper in your recovery, keeping in mind your restrictions. (1) Get Active. Physical activity can help people lose weight, control high blood pressure and cholesterol, feel emotionally better, and sleep better. (2) Control Cholesterol. Avoid a diet high in saturated fat, trans fat, & cholesterol. Limit whole milk & cream, ice cream, butter, egg yolks, processed meats (like sausage and hot dogs), and fatty meats. Choose healthy foods that are low in saturated fat, trans fat and cholesterol which include: Fruits and vegetables, fiber rich grain products (like whole grain pasta and brown rice), lean meat such as chicken, fish, nuts, seeds, and legumes. (3) Eat Better. Eat small portions. Shop at the grocery with a list and do not stray from it. Tips for a healthy diet include: Limit sodium intake to less than 1500mg daily, avoid prepackaged, processed, and fast foods, choose a diet rich in fruits, vegetables, and whole grain, high fiber foods, and limit saturated & cholesterol in your diet. (4) Manage Blood Pressure. If you have high blood pressure, you should have a cuff at home so that you can check your blood pressure regularly. Be sure you have a good cuff. An arm one is generally better than a wrist one. Bring the cuff to a doctor's appointment to validate that the measurements that your cuff are taking are accurate. Take your blood pressure twice daily when you are sitting down and relaxing. Record the numbers in a log and bring this log with you to your doctors' appointments. (5) Lose Weight if your BMI is above 25. A healthy BMI is between 19-25. To calculate Your BMI, you may use a Standard BMI Calculator on the NIH BMI website: <www.nhlbi.nih.gov/guidelines/obesity/BMI/bmicalc.htm>. Weigh oneself daily. If you are overweight, set a goal to lose weight. A pound a week loss if needed is a good target. (6) Reduce Blood Sugar. Limit foods and liquids with "added sugars." (Added sugars include sucrose, fructose, glucose, maltose, dextrose, high fructose corn syrup, corn syrup, concentrated fruit juice and honey). (7) Stop Smoking. If you smoke, quitting smoking is one of the best things that you can do for your health. Smoking increases your risk of heart attack, stroke, and peripheral vascular disease, which is a build-up of plaque in your arteries. Please discard all the cigarettes and lighters in your house. Have a plan for what you will do when you have the urge to smoke. Direct and second- hand smoke shortens your life as well as the lives of your family, friends and others around you. For your health and the health of those around you, please consider quitting! Proper Bending Body Mechanics: Maintain a wide stance with one foot slightly in front of the other. Keep your back straight. Bend utilizing the strength in your hips and knees. Do not bend at the waist. Maintain the lifted object at your waist-level close to your body. Avoid lifting weight that causes immediately pain or pain anywhere in the body afterwards. Smoking/Nicotine If there was ever one thing that you could do to increase your overall health, decrease your risk of cardiovascular problems by about 39% the second you make the choice, it is to STOP SMOKING. Your body's most instant gratification is the second you stop smoking. We have all heard the studies, read the articles but it is true, smoking is extremely bad for your overall health, and moreover it is detrimental to your bone health. Nicotine, IN ANY FORM, kills bone cells, prevents your body from healing fractures, and significantly prolongs healing after surgery. In spine surgery specifically, it increases your risk of not healing your bones to create a fusion and increases your risk of having a revision surgery due to this up to 60%. I know it is hard. I know it feels impossible. But there are ways. Take control of your life. We are here to help you through it. And when you are ready, ask us and we can direct you to help if you desire. Use the START Plan to Quit Smoking (please visit the [employer] website listed below for more information): S = Set a quit date. Choose a date within the next 2 weeks, so you have enough time to prepare without losing your motivation to quit. If you mainly smoke at work, quit on the weekend, so you have a few days to adjust to the change. T = Tell family, friends, and co-workers that you plan to quit. Let your friends and family in on your plan to quit smoking and tell them you need their support and encouragement to stop. Look for a quit julian who wants to stop smoking as well. You can help each other get through the rough times. A = Anticipate and plan for the challenges you'll face while quitting. Most people who begin smoking again do so within the first 3 months. You can help yourself make it through by preparing ahead for common challenges, such as nicotine withdrawal and cigarette cravings. R = Remove cigarettes and other tobacco products from your home, car, and work. Throw away all your cigarettes (no emergency pack!), lighters, ashtrays, and matches. Wash your clothes and freshen up anything that smells like smoke. Shampoo your car, clean your drapes and carpet, and steam your furniture. T = Talk to your doctor about getting help to quit. Your doctor can prescribe medication to help with withdrawal and suggest other alternatives. If you can't see a doctor, you can get many products over the counter at your local pharmacy or grocery store, including the nicotine patch, nicotine lozenges, and nicotine gum. Resources for Quitting Smoking: <https:/ /www.[place].gov/documents/[facility]/Quit_Tobacco_Resources_for_patients_313480_7.pd f> Supplementation: Take recommended dosages of Vitamin D and Calcium to help fortify your bones and help them to heal. See your health maintenance packet for dosages and recommended levels. DVT/VTE prophylaxis: You will be given compression stockings from the hospital. Wear these daily for the first two weeks after surgery. You may take them off at night. You may be prescribed a medication to help thin your blood. Take this as directed. If you are not prescribed this medication, early and frequent ambulation has been shown to be the best prophylaxis to deep vein thrombosis and sequelae related to this event. Discharge Disposition: HOME SELF-CARE
[2023-02-15 15:20] VITALS: BP 127/79; PULSE 69; RESP 16; TEMP 98.9
== END 2023-02-15 15:59 | disposition home or self-care (01) | DRG 29 ==
LOC: EC 11:50 → 4SSUR 16:11
PROVIDERS: ADMIT Orthopaedic Surgery; ATTEND Orthopaedic Surgery
PROC: 0QB00ZZ Excision of Lumbar Vertebra, Open Approach (ICD-10-PCS; 2023-02-12)
PROC: 0QU03JZ Supplement Lumbar Vertebra with Synthetic Substitute, Percutaneous Approach (ICD-10-PCS; 2023-02-12)
PROC: 0QS03ZZ Reposition Lumbar Vertebra, Percutaneous Approach (ICD-10-PCS; 2023-02-12)
PROC: 00UT0JZ Supplement Spinal Meninges with Synthetic Substitute, Open Approach (ICD-10-PCS; principal; 2023-02-12 10:00)
DX: G96.09 Other spinal cerebrospinal fluid leak (principal); D62 Acute posthemorrhagic anemia; T81.31XA Disruption of external operation (surgical) wound, not elsewhere classified, initial encounter; I96 Gangrene, not elsewhere classified; D72.829 Elevated white blood cell count, unspecified; E66.9 Obesity, unspecified; Z68.36 Body mass index [BMI] 36.0-36.9, adult; Z79.899 Other long term (current) drug therapy; Z82.49 Family history of ischemic heart disease and other diseases of the circulatory system; Z87.891 Personal history of nicotine dependence; Z98.1 Arthrodesis status; Z91.040 Latex allergy status; Z88.5 Allergy status to narcotic agent
CPT/HCPCS: 36415; 72100; 80048; 80053; 83605; 84703; 85025; 87040; 87077; 87186; 96365; 96375; 99285

== ENCOUNTER → 2023-03-26 | Outpatient (CLI) | payer MEDICARE, OTHER ==
--- NOTE | 2023-03-26 07:34 | MR ---
EXAMINATION TYPE: MR lumbar spine wo con DATE OF EXAM: 03/26/2023 7:22 AM CLINICAL INDICATION:Female, 38 years old with history of M51.26, M48.061, M54.50; Low back pain into rt leg post surgery COMPARISON: None TECHNIQUE: Multi planar, multi sequence imaging was performed utilizing: T1-weighted, T2-weighted, a nd turbo inversion recovery imaging of the lumbar spine. IV Contrast:(None if empty) FINDINGS: Alignment: The lumbar vertebral bodies have preserved heights and alignment. Cord: The conus medullaris and the distal spinal cord appear unremarkable with regards to their signa l intensity and morphology. Bones/Discs: Disc degeneration changes worse at L5-S1 with disc space narrowing, osteophytes and Stella c endplate changes. Edema around the surgical site at L4-L5 spinous processes with fixation hardware in place. Intervertebral disc signal is maintained. T12-L1: No evidence of significant spinal canal stenosis or neural foraminal stenosis. L1-L2: No evidence of significant spinal canal stenosis or neural foraminal stenosis. L2-L3: No evidence of significant spinal canal stenosis or neural foraminal stenosis. L3-L4: No evidence of significant spinal canal stenosis or neural foraminal stenosis. L4-L5: No evidence of significant spinal canal stenosis or neural foraminal stenosis. L5-S1: The disc is rounded posterior morphology without significant spinal canal stenosis. Facet join t arthropathy with mild bilateral neural foraminal stenosis. No significant spinal canal or neural foraminal stenosis in the remainder of the visualized levels. Other findings: Surgical bed small high T2 signal track could represent organizing fluid collection versus postsurgical change. IMPRESSION: 1. Postsurgical change without significant spinal canal neural foraminal stenosis. 2. Disc degeneration changes worse at L5-S1 with Modic endplate changes and disc space narrowing. 3. Surgical bed small high T2 signal track could represent organizing fluid collection versus postsu rgical change.
== END | disposition home or self-care (01) ==
LOC: RADMRIMAIN 06:36
PROVIDERS: ATTEND Orthopaedic Surgery
DX: M51.26 Other intervertebral disc displacement, lumbar region (principal); M48.061 Spinal stenosis, lumbar region without neurogenic claudication; M51.37 Other intervertebral disc degeneration, lumbosacral region; Z98.890 Other specified postprocedural states
CPT/HCPCS: 72148

== ENCOUNTER 2023-04-22 06:44 | Day surgery (SDC) | payer MEDICARE, OTHER ==
--- NOTE | 2023-04-22 07:10 | P.GSHP ---
History of Present Illness H&P Date: 04/22/23 CHIEF COMPLAINT: GERD HISTORY OF PRESENT ILLNESS: The patient is a 38-year-old female who presents reports gastroesophageal reflux disease. Upper endoscopy was offered for further evaluation and management. PAST MEDICAL HISTORY: Please see list. PAST SURGICAL HISTORY: Please see list. MEDICATIONS: Please see list. ALLERGIES: Please see list. SOCIAL HISTORY: No illicit drug use FAMILY HISTORY: No reports of Crohn disease or ulcerative colitis. REVIEW OF ORGAN SYSTEMS: CONSTITUTIONAL: No reports of fevers or chills. GI: Denies any blood in stools or constipation. PHYSICAL EXAM: VITAL SIGNS: Stable GENERAL: Well-developed and pleasant in no acute distress. HEENT: No scleral icterus. Extraocular movements grossly intact. Moist buccal mucosa. NECK: Supple without lymphadenopathy. CHEST: Unlabored respirations. Equal bilateral excursions. CARDIOVASCULAR: Regular rate and rhythm. Distal 2+ pulses. ABDOMEN: Soft, nondistended. MUSCULOSKELETAL: No clubbing, cyanosis, or edema. ASSESSMENT: 1. Gastroesophageal reflux disease PLAN: 1. Recommend proceeding with an upper endoscopy Past Medical History Past Medical History: GERD/Reflux Additional Past Medical History / Comment(s): CHRONIC LOW BACK PAIN History of Any Multi-Drug Resistant Organisms: MRSA Date of last positivie culture/infection: 2010 MDRO Source:: unknown Past Surgical History: Section, Cholecystectomy, Orthopedic Surgery Additional Past Surgical History / Comment(s): Pain clinic procedure, R ankle & leg surgery/hardware x 3, nasal surgery Past Anesthesia/Blood Transfusion Reactions: No Reported Reaction Additional Past Anesthesia/Blood Transfusion Reaction / Comment(s): Pt has never received blood. Smoking Status: Former smoker - Past Family History Mother Family Medical History: Liver Disease Additional Family Medical History / Comment(s): Father Family Medical History: Hypertension Medications and Allergies Home Medications Medication Instructions Recorded Confirmed Type Pregabalin [Lyrica] 150 mg PO BID #30 capsule 01/27/23 04/20/23 Rx Cyclobenzaprine [Flexeril] 5 mg PO TID #21 tablet 02/15/23 04/20/23 Rx Meloxicam [Mobic] 15 mg PO DAILY 04/20/23 04/20/23 History Allergies Allergy/AdvReac Type Severity Reaction Status Date / Time latex Allergy Rash/Hives Verified 04/20/23 12:30 tramadol AdvReac Abdominal Verified 04/20/23 12:30 Pain & Hallucinations
[2023-04-22] MEDS ORDERED: LIDOCAINE 1% (10MG/ML) FOR IV START INTRADERMA PRN (07:15)
[2023-04-22] MEDS ORDERED: LACTATED RINGERS 1,000 ML IV SCH (07:15)
[2023-04-22] MEDS ORDERED: LIDOCAINE 2% (PF) 20 MG/ML 5 ML VIAL ONE (07:29)
[2023-04-22] MEDS ORDERED: PROPOFOL 10 MG/ML 20 ML VIAL IV ONE (07:29)
[2023-04-22] MEDS ORDERED: fentaNYL (PF) 50 MCG/ML 2 ML AMP ONE (07:29)
[2023-04-22 07:41] VITALS: TEMP 97.7
--- NOTE | 2023-04-22 08:24 | P.PCN ---
Date of Procedure: 04/22/23 Description of Procedure: PREOPERATIVE DIAGNOSIS: Gastroesophageal reflux disease. Morbid obesity. POSTOPERATIVE DIAGNOSIS: Gastroesophageal reflux disease. Morbid obesity. Gastritis. Gastroparesis OPERATION: Esophagogastroduodenoscopy with biopsies along esophagus, antrum and duodenum SURGEON: Torri Luna MD ANESTHESIA: MAC. INDICATIONS: The patient is a 38-year-old female who presents with reflux disease. Benefits and risks of the procedure were described. Informed consent was obtained. DESCRIPTION: The patient was brought into the endoscopy suite and laid in the left lateral decubitus position. An Olympus gastroscope was passed along the posterior oropharynx down to the distal esophagus where the squamocolumnar junction was encountered at 35 cm from the incisors. The stomach was entered and bile reflux was found. Additional findings are listed below. Biopsies with cold forceps were obtained of the antrum. The first through third portion of the duodenum was examined. Retroflexion of the scope confirmed Hill grade 3 lower esophageal valve. The squamocolumnar junction demonstrated LA grade B erosive esophagitis. The stomach was desufflated. The patient tolerated the procedure well. FINDINGS: Squamocolumnar junction 35cm from the incisors. Diaphragmatic hiatus at 35 cm. Hill grade 3 lower esophageal valve. LA grade B erosive esophagitis. Biopsies obtained Biopsies obtained of the duodenum. Chronic gastritis with biopsies obtained. Retained food after cookies and milk at 11 PM last night Retained food within distal esophagus and reflux identified RECOMMENDATIONS: 1. Reglan 10 mg 3 times daily prescribed for gastroparesis 2. Avoiding late night eating also addressed Plan - Discharge Summary Discharge Rx Participant: Yes New Discharge Prescriptions: New Metoclopramide [Reglan] 10 mg PO ACHS #30 tab Continue Cyclobenzaprine [Flexeril] 5 mg PO TID #21 tablet Meloxicam [Mobic] 15 mg PO DAILY Pregabalin [Lyrica] 150 mg PO BID #30 capsule Discharge Medication List Pregabalin [Lyrica] 150 mg PO BID #30 capsule 01/27/23 [Rx] Cyclobenzaprine [Flexeril] 5 mg PO TID #21 tablet 02/15/23 [Rx] Meloxicam [Mobic] 15 mg PO DAILY 04/20/23 [History] Metoclopramide [Reglan] 10 mg PO ACHS #30 tab 04/22/23 [Rx] Follow up Appointment(s)/Referral(s): Torri Luna MD [STAFF PHYSICIAN] - 05/04/23 1:45 pm Patient Instructions/Handouts: Gastroparesis (DC) Discharge Disposition: HOME SELF-CARE
[2023-04-22 08:32] VITALS: BP 105/67; PULSE 65; RESP 18
== END 2023-04-22 08:26 | disposition home or self-care (01) ==
LOC: ORWHC2ENDO 06:44
PROVIDERS: ATTEND Surgery Plastic and Reconstructive Surgery
DX: K29.50 Unspecified chronic gastritis without bleeding (principal); K21.9 Gastro-esophageal reflux disease without esophagitis; K31.84 Gastroparesis; K31.9 Disease of stomach and duodenum, unspecified; E66.01 Morbid (severe) obesity due to excess calories; G89.29 Other chronic pain; Z79.1 Long term (current) use of non-steroidal anti-inflammatories (NSAID); Z87.891 Personal history of nicotine dependence; Z88.5 Allergy status to narcotic agent; Z90.49 Acquired absence of other specified parts of digestive tract; Z91.040 Latex allergy status; Z68.38 Body mass index [BMI] 38.0-38.9, adult
CPT/HCPCS: 81025; 88305; 43239; J3010; J2704; J2001